=== PATIENT | male | born 1960 | race Caucasian/White ===

== ENCOUNTER 2017-02-08 08:09 | Inpatient (IN) | payer BC ==
[~2017-02-08 08:09] MED LIST: Bisacodyl 5 MG Tab PO PRN; Dexamethasone 4 MG/ML 5 ML MDV ONE; Lactated Ringers 1,000 ML IV SCH; Lactated Ringers 1,000 ML ONE; Lidocaine 1%/Sod Bicarbonate in NS 8.4% 1 ML Syringe IV PRN; Midazolam 1 MG/ML 2 ML SDV ONE; Morphine 2 MG/ML Syringe IVPUSH PRN; Morphine PF 10 MG/10 ML SDV ONE; Ondansetron 4 MG/2 ML SDV IVPUSH PRN; Propofol 200 MG/20 ML SDV ONE; Sodium Chloride 0.9% 10 ML Syringe FLUSH PRN; ceFAZolin 1 GM Vial ONE; fentaNYL 100 MCG/2 ML SDV ONE
[2017-02-08] MEDS ORDERED: Clindamycin Phosphate 900 MG/6 ML AdvVial ONE (08:42)
--- NOTE | 2017-02-08 09:28 | PCM.PREANE ---
Preanesthetic Assessment - Physical Assessment NPO Status Date: 02/07/17 NPO Status Time: 20:00 O2 Sat by Pulse Oximetry: 94 Respiratory Rate: 16 Vital Signs: Last Vital Signs Temp 36.3 C 02/08/17 08:30 Pulse 58 L 02/08/17 08:30 Resp 16 02/08/17 08:30 BP 149/86 H 02/08/17 08:30 Pulse Ox 94 L 02/08/17 08:30 Height: 1.63 m Weight: 104.78 kg - Lab Values: Laboratory Last Values MRSA (PCR) Negative 01/27/17 12:26 - Allergies Allergies/Adverse Reactions: Allergies Allergy/AdvReac Type Severity Reaction Status Date / Time amoxicillin trihydrate Allergy Hives Verified 04/17/15 11:10 [From Augmentin] potassium clavulanate Allergy Hives Verified 04/17/15 11:10 [From Augmentin] PreAnesthesia Questionnaire Cardiovascular History: Reports: Blood clots/VTE/DVT Gastrointestinal History: Reports: GERD Other Gastrointestinal History: heartburn Genitourinary History: Reports: Urinary incontinence Other Genitourinary History: urgency, frequency Neurological History: Reports: Other (see below) Other Neuro History: headache Psychiatric History: Reports: Anxiety, Depression - Past Surgical History GI Surgical History: Reports: Colonoscopy - SUBSTANCE USE Smoking Status *Q: Current Every Day Smoker Tobacco Use Within Last Twelve Months: Snuff/Dip Second Hand Smoke Exposure: No Recreational Drug Use History: No - HOME MEDS Home Medications: Home Meds Aspirin 81 mg PO DAILY 02/05/17 [History] DULoxetine [Cymbalta] 60 mg PO DAILY 02/05/17 [History] Esomeprazole Magnesium [Nexium 24Hr] 20 mg PO DAILY 02/05/17 [History] Furosemide [Furosemide] 20 mg PO DAILY 02/05/17 [History] Gabapentin [Gabapentin] 100 mg PO TID 02/05/17 [History] Multivitamin [Multivitamins] 1 tab PO DAILY 02/05/17 [History] [place]-3 Fatty Acids [Fish Oil] 300 mg PO DAILY 02/05/17 [History] Pramipexole Di-HCl [Mirapex] 1 mg PO BEDTIME 02/05/17 [History] Rivaroxaban [Xarelto] 20 mg PO DAILY 02/05/17 [History] - CURRENT (IN HOUSE) MEDS Current Meds: Current Medications Bisacodyl (Dulcolax) 5 mg PO DAILY PRN PRN Reason: Constipation Morphine Sulfate 8 mg/Epinephrine HCl 0.3 mg/Cefuroxime Sodium 750 mg/Ketorolac Tromethamine 30 mg/Sodium Chloride 27.9 ml 0 mg .XX ONETIME ONE Stop: 02/08/17 10:31 Docusate Sodium (Colace) 100 mg PO BID [facility] Famotidine (Pepcid) 20 mg PO Q12H [facility] Lactated Ringer's (Ringers, Lactated) 1,000 mls @ 125 mls/hr IV ASDIRECTED [facility] Cefazolin Sodium/Dextrose 2 gm (/ Premix) 50 mls @ 100 mls/hr IV Q8H [facility] Stop: 02/09/17 07:59 Ketorolac Tromethamine (Toradol) 15 mg IVPUSH Q6H [facility] Stop: 02/08/17 18:01 Lidocaine/Sodium Bicarbonate (Buffered Lidocaine 1% In Ns 8.4%) 0.25 ml IV ONETIME PRN PRN Reason: Prior to IV Start Magnesium Hydroxide (Milk Of Magnesia) 30 ml PO BID PRN PRN Reason: Constipation Morphine Sulfate (Morphine) 2 mg IVPUSH Q2H PRN PRN Reason: Breakthrough Pain Multivitamins (Thera) 1 each PO WITHBREAKFAST [facility] Naloxone HCl (Narcan) 0.1 mg IVPUSH Q5M PRN PRN Reason: Oversedation Stop: 02/08/17 12:16 Ondansetron HCl (Zofran) 4 mg IVPUSH Q6H PRN PRN Reason: Nausea/Vomiting Oxycodone/Acetaminophen (Percocet 325-5 Mg) 1 - 2 tab PO Q4H PRN PRN Reason: Pain Rivaroxaban (Xarelto) 20 mg PO DAILY [facility] Senna (Senna) 8.6 mg PO BID PRN PRN Reason: Constipation Sodium Chloride (Saline Flush) 10 ml FLUSH ASDIRECTED PRN PRN Reason: Keep Vein Open Discontinued Medications Bupivacaine HCl (Marcaine 0.25%) Confirm Administered Dose 30 ml .ROUTE .STK- MED ONE Stop: 02/08/17 08:44 Cefazolin Sodium (Ancef) Confirm Administered Dose 2 gm .ROUTE .STK-MED ONE Stop: 02/08/17 07:22 Cefazolin Sodium (Ancef) Confirm Administered Dose 2 gm .ROUTE .STK-MED ONE Stop: 02/08/17 08:44 Clindamycin Phosphate (Cleocin) Confirm Administered Dose 900 mg .ROUTE .STK- MED ONE Stop: 02/08/17 08:43 Dexamethasone (Dexamethasone) Confirm Administered Dose 20 mg .ROUTE .STK-MED ONE Stop: 02/08/17 07:22 Fentanyl (Sublimaze) Confirm Administered Dose 100 mcg .ROUTE .STK-MED ONE Stop: 02/08/17 07:22 Lidocaine HCl (Xylocaine-Mpf 1%) Confirm Administered Dose 10 mls @ as directed .ROUTE .STK-MED ONE Stop: 02/08/17 07:22 Lactated Ringer's (Ringers, Lactated) Confirm Administered Dose 1,000 mls @ as directed .ROUTE .STK-MED ONE Stop: 02/08/17 07:22 Iodine (Iodine 2% Mild Tincture) Confirm Administered Dose 30 ml .ROUTE .STK- MED ONE Stop: 02/08/17 08:44 Midazolam HCl (Versed 1 Mg/Ml) Confirm Administered Dose 2 mg .ROUTE .STK-MED ONE Stop: 02/08/17 07:22 Morphine Sulfate (Duramorph Pf) Confirm Administered Dose 10 mg .ROUTE .STK-MED ONE Stop: 02/08/17 07:23 Propofol (Diprivan 20 Ml) Confirm Administered Dose 400 mg .ROUTE .STK-MED ONE Stop: 02/08/17 07:22 Tranexamic Acid (Cyklokapron) Confirm Administered Dose 1,000 mg .ROUTE .STK- MED ONE Stop: 02/08/17 08:43 Preanesthetic Assessment - ANESTHESIA/TRANSFUSION/FAMILY HX Anesthesia/Transfusion History: No Prior Transfusion(s), Prior Anesthesia Type of Anesthesia Reaction: Reports: Unknown Family History of Anesthesia Reaction: No Intubation History: Unknown Type of Transfusion Reactions: Reports: Unknown - REVIEW OF SYSTEMS 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 Respiratory: Reports: no symptoms (RANDY with CPAP) Cardiovascular: Reports: no symptoms (HX of DVT to R) leg) GI: Reports: no symptoms Other: Reports: Easy Bruising, Depression (controlled with medication ) - PHYSICAL ASSESSMENT O2 Sat by Pulse Oximetry: 94 RR: 16 Vital Signs: Last Vital Signs Temp 36.3 C 02/08/17 08:30 Pulse 58 L 02/08/17 08:30 Resp 16 02/08/17 08:30 BP 149/86 H 02/08/17 08:30 Pulse Ox 94 L 02/08/17 08:30 Height: 1.63 m Weight: 104.78 kg NPO Status Date: 02/07/17 NPO Status Time: 20:00 ASA Class: 2 Mental Status: Alert & Oriented x3 Airway Class: Mallampati = 2 Dentition: Reports: Normal Dentition Thyro-Mental Finger Breadths: 3 Mouth Opening Finger Breadths: 3 ROM/Head Extension: Full Respiratory Status: lungs clear to auscultation bilaterally Cardiovascular Status: regular rate & rhythm, normal S1, S2, no murmur, blood pressure WNL - LAB Values: Laboratory Last Values MRSA (PCR) Negative 01/27/17 12:26 plt 223, hgb 16.1 - ALLERGIES Allergies/Adverse Reactions: Allergies Allergy/AdvReac Type Severity Reaction Status Date / Time amoxicillin trihydrate Allergy Hives Verified 04/17/15 11:10 [From Augmentin] potassium clavulanate Allergy Hives Verified 04/17/15 11:10 [From Augmentin] - BLOOD Blood Available: No Product(s) Available: None - ANESTHESIA PLAN Preop Beta Kady: No Anesthesia Type Planned: Spinal (with duramorph) - ACKNOWLEDGEMENTS Pt an Appropriate Candidate for the Planned Anesthesia: Yes Alternatives and Risks of Anesthesia Discussed w Pt/Guardian: Yes Pt/Guardian Understands and Agrees with Anesthesia Plan: Yes
[2017-02-08] MEDS: ceFAZolin 1 GM Vial ONE ×2 (10:56→11:16)
[2017-02-08] MEDS: Bupivacaine 0.25% 30 ML SDV ONE ×2 (10:56→11:37)
[2017-02-08] MEDS: Iodine/Sodium Iodide 2% Tincture 30 ML Bottle ONE ×2 (10:57→11:36)
[2017-02-08] MEDS: Morphine 8 MG, EPINEPHrine 0.3 MG, Cefuroxime 750 MG, Ketorolac 30 MG, Sodium Chloride ... ONE ×15 (10:58→14:11)
[2017-02-08] MEDS ORDERED: Lactated Ringers 1,000 ML ONE (11:12)
[2017-02-08] MEDS ORDERED: Propofol 200 MG/20 ML SDV ONE ×3 (11:23)
[2017-02-08] MEDS ORDERED: diphenhydrAMINE 50 MG/ML SDV IVPUSH PRN (11:48)
[2017-02-08] MEDS ORDERED: Ondansetron 4 MG/2 ML SDV IVPUSH PRN (11:48)
[2017-02-08] MEDS ORDERED: Meperidine PF 50 MG/ML Syringe IVPUSH PRN (11:48)
[2017-02-08] MEDS ORDERED: Naloxone 0.4 MG/ML SDV IVPUSH PRN (12:00)
[2017-02-08] MEDS ORDERED: fentaNYL 100 MCG/2 ML SDV IVPUSH PRN (12:00)
--- NOTE | 2017-02-08 12:28 | PCM.POSTAN ---
POST ANESTHESIA ASSESSMENT - MENTAL STATUS Mental Status: alert, oriented - VITAL SIGNS Pulse Rate: 58 SaO2: 100 Resp Rate: 14 Blood Pressure: 111/72 Temperature: 36.2 C - RESPIRATORY Respiratory Status: respiratory rate WNL, airway patent, O2 saturation stable, supplemental oxygen - CARDIOVASCULAR CV Status: pulse rate WNL - GASTROINTESTINAL GI Status: no symptoms - PAIN Pain Score: 0 - POST OP HYDRATION Hydration Status: adequate & stable
--- NOTE | 2017-02-08 13:56 | CR ---
Left knee: AP and lateral views of the left knee were obtained. Comparison: No previous knee exam. Knee prosthesis is seen. Components are aligned. Soft tissue air is noted. Air noted within the joint. This is compatible with recent surgical procedure. Underlying bony structures are intact. Impression: 1. Satisfactory appearance of recently placed left knee prosthesis. Diagnostic code #2
[2017-02-08] MEDS: Ketorolac 15 MG/ML SDV IVPUSH SCH ×2 (15:34→21:30)
--- NOTE | 2017-02-08 15:35 | PCM.CONS ---
H&P History of Present Illness - General Date of Service: 02/08/17 Admit Problem/Dx: Admission Diagnosis/Problem Admission Diagnosis/Problem Osteoarthritis of knee - History of Present Illness Initial Comments - Free Text/Narative: This is a 56-year-old male with a history of Previous right lower extremity DVT , GERD, depression, restless legs, anxiety, edema, who underwent left total knee arthroplasty with Dr. Brown today, and we are being consulted for medical management. At this time, patient reports that the pain is under control and otherwise denies any other active complaints. - Related Data Allergies/Adverse Reactions: Allergies Allergy/AdvReac Type Severity Reaction Status Date / Time amoxicillin trihydrate Allergy Hives Verified 02/08/17 10:05 [From Augmentin] potassium clavulanate Allergy Hives Verified 02/08/17 10:05 [From Augmentin] Home Medications: Home Meds Aspirin 81 mg PO DAILY 02/05/17 [History] DULoxetine [Cymbalta] 60 mg PO DAILY 02/05/17 [History] Esomeprazole Magnesium [Nexium 24Hr] 20 mg PO DAILY 02/05/17 [History] Furosemide [Furosemide] 20 mg PO DAILY 02/05/17 [History] Gabapentin [Gabapentin] 100 mg PO TID 02/05/17 [History] Multivitamin [Multivitamins] 1 tab PO DAILY 02/05/17 [History] [place]-3 Fatty Acids [Fish Oil] 300 mg PO DAILY 02/05/17 [History] Pramipexole Di-HCl [Mirapex] 1 mg PO BEDTIME 02/05/17 [History] Rivaroxaban [Xarelto] 20 mg PO DAILY 02/05/17 [History] Past Medical History Cardiovascular History: Reports: Blood clots/VTE/DVT Gastrointestinal History: Reports: GERD Other Gastrointestinal History: heartburn Genitourinary History: Reports: Urinary incontinence Other Genitourinary History: urgency, frequency Neurological History: Reports: Other (see below) Other Neuro History: headache Psychiatric History: Reports: Anxiety, Depression - Past Surgical History GI Surgical History: Reports: Colonoscopy Social & Family History - Family History Cardiac: Reports: High cholesterol (Mother), Hypertension (Both parents) Neurological: Reports: CVA (Father), Dementia (Father) - Tobacco Use Smoking Status *Q: Current Every Day Smoker Second Hand Smoke Exposure: No - Caffeine Use Caffeine Use: Reports: None - Alcohol Use Alcohol Use Comment: 3-4 beers per week - Recreational Drug Use Recreational Drug Use: No H&P Review of Systems - Review of Systems: Review Of Systems: See Below General: Denies: fever, chills, night sweats HEENT: Reports: headaches. Denies: vertigo Pulmonary: Reports: Cough. Denies: Shortness of Breath, Sputum Cardiovascular: Denies: chest pain, palpitations, orthopnea Gastrointestinal: Denies: Abdominal pain, Diarrhea, Nausea, Vomiting Genitourinary: Denies: dysuria, frequency, burning Musculoskeletal: Denies: neck pain, back pain Skin: Denies: rash, lesions, lumps Psychiatric: Reports: depression (Chronic). Denies: confusion, anxiety Neurological: Denies: Dizziness, Headache, Weakness Hematologic/Lymphatic: Denies: easy bleeding, easy bruising Exam - Exam Exam: See Below - Vital Signs Vital Signs: Last Vital Signs Temp 36.6 C 02/08/17 13:18 Pulse 52 L 02/08/17 13:18 Resp 18 02/08/17 13:30 BP 116/75 02/08/17 13:18 Pulse Ox 94 L 02/08/17 13:18 Weight: 104.78 kg - Exam Physical Exam Comments:: Vitals: as above General: alert and oriented. NAD Psych: calm and cooperative HEENT: normocephalic, atraumatic. EOMI Cardiac: Normal S1, S2. regular rate. No murmurs rubs, or gallops. No JVD noted. Lungs: CTAB. good air entry bilaterally. Abd: Soft, NT/ND. No HSM noted. Skin: no new visible rashes or purpura noted Neuro: CN grossly intact. Strength intact and adequate bilaterally. - Patient Data Lab Results last 24 hrs: Laboratory Results - last 24 hr 02/08/17 Range/Units 09:36 Urine Color Yellow (Yellow) Urine Appearance Clear (Clear) Urine pH 8.0 (5.0-8.0) Ur Specific [place] 1.020 (1.005-1.030) Urine Protein Negative (Negative) Urine Glucose (UA) Negative (Negative) Urine Ketones Negative (Negative) Urine Occult Blood Negative (Negative) Urine Nitrite Negative (Negative) Urine Bilirubin Negative (Negative) Urine Urobilinogen 1.0 (0.2-1.0) Ur Leukocyte Esterase Negative (Negative) Urine RBC 0-5 (0-5) /hpf Urine WBC 0-5 (0-5) /hpf Ur Epithelial Cells 0-5 (0-5) /hpf Amorphous Sediment Moderate H (NOT SEEN) /hpf Urine Bacteria Few (FEW) /hpf Urine Mucus Not seen (FEW) /hpf Imaging Impressions last 24 hrs: x ray on my evaluation shows postoperative changes. Consult PN Assessment/Plan POD#: 0 Procedures: Procedures DRAIN/INJ JOINT/BURSA W/O US (04/26/15) EXTREMITY STUDY (09/19/15) MRI LUMBAR SPINE W/O DYE (06/05/15) NEEDLE LOCALIZATION BY XRAY (04/26/15) X-RAY EXAM OF SKULL (06/05/15) (1) DVT (deep venous thrombosis) SNOMED Code(s): 554030092 Code(s): I82.409 - ACUTE EMBOLISM AND THOMBOS UNSP DEEP VN UNSP LOWER EXTREMITY Current Visit: Yes Qualifiers: DVT location: lower extremity Affected thrombotic vein of extremity: unspecified vein of extremity Laterality: right Chronicity: chronic Qualified Code(s): I82.501 - Chronic embolism and thrombosis of unspecified deep veins of right lower extremity (2) Depression SNOMED Code(s): 70203493 Code(s): F32.9 - MAJOR DEPRESSIVE DISORDER, SINGLE EPISODE, UNSPECIFIED Current Visit: Yes Qualifiers: Depression Type: unspecified Qualified Code(s): F32.9 - Major depressive disorder, single episode, unspecified (3) Restless leg SNOMED Code(s): 06626868 Code(s): G25.81 - RESTLESS LEGS SYNDROME Current Visit: Yes Problem List Initiated/Reviewed/Updated: Yes My Orders last 24 hours: s/p L TKA, POD#0 - Pain regimen per primary team. xarelto has been ordered by primary team for DVT prophylaxis, - pain currently under control Chronic medical conditions. Would continue home regimen for the following: Anxiety and Depression Restless legs DVT-patient states that his DVT has not resolved after 2 years of anticoagulation. It appears that his PCP added on aspirin. I would recommend continuing both of these as the primary team has done. GERD Thank you for this consult, and please do not hesitate to ask if there are questions. Requesting Provider: Dr. Kevin Date Consult Requested: 02/08/17 Reason for Consult: medical management Patient History Reviewed: Yes Admission H&P Reviewed: Yes
[2017-02-08] MEDS: ceFAZolin 2 GM in Premix Bag 1 BAG IV SCH ×2 (15:37→23:40)
[2017-02-08] MEDS ORDERED: Lactated Ringers 500 ML IV ONE ×2 (16:00→19:48)
[2017-02-08] MEDS ORDERED: Furosemide 20 MG Tab PO STA (19:47)
[2017-02-08] MEDS ORDERED: Sennosides 8.6 MG Tab PO PRN (21:00)
[2017-02-08] MEDS ORDERED: Magnesium Hydroxide 400 MG/5 ML Susp 30 ML Cup PO PRN (21:00)
[2017-02-08] MEDS ORDERED: Pramipexole 0.5 MG Tab PO SCH (21:00)
[2017-02-08] MEDS: Gabapentin 100 MG Cap PO SCH (21:25)
[2017-02-08] MEDS: Famotidine 20 MG Tab PO SCH (21:27)
[2017-02-08] MEDS: Docusate Sodium 100 MG Cap PO SCH (21:27)
[2017-02-08] MEDS ORDERED: Ketorolac 15 MG/ML SDV IVPUSH ONE (21:30)
[2017-02-09] MEDS: Acetaminophen/oxyCODONE 325-5 MG Tab PO PRN ×4 (03:29→15:40)
[2017-02-09] MEDS: ceFAZolin 2 GM in Premix Bag 1 BAG IV SCH (06:55)
[2017-02-09] MEDS ORDERED: Multivitamins,Therapeutic Tab PO SCH (07:00)
--- NOTE | 2017-02-09 08:46 | PCM48HPAN ---
Post Anesthesia Note - EVALUATION WITHIN 48HRS OF ANESTHETIC Vital Signs in Normal Range: Yes Patient Participated in Evaluation: Yes Respiratory Function Stable: Yes Airway Patent: Yes Cardiovascular Function Stable: Yes Hydration Status Stable: Yes Pain Control Satisfactory: Yes (Pt reports pain control satisfactory, and he has less pain when he walks) Nausea and Vomiting Control Satisfactory: Yes Mental Status Recovered: Yes - COMMENTS/OBSERVATIONS Free Text/Narrative:: reports no recall. taking po and up to restroom without problems
[2017-02-09] MEDS: Docusate Sodium 100 MG Cap PO SCH (08:50)
[2017-02-09] MEDS: Famotidine 20 MG Tab PO SCH (08:51)
[2017-02-09] MEDS: Gabapentin 100 MG Cap PO SCH ×2 (08:51→17:28)
[2017-02-09] MEDS ORDERED: Non-Formulary Medication 1 Each (Rivaroxaban [Xarelto] 20 MG) PO SCH (09:00)
[2017-02-09] MEDS ORDERED: Tamsulosin 0.4 MG Cap.ER PO SCH (09:00)
[2017-02-09] MEDS ORDERED: Rivaroxaban 10 MG Tab PO SCH (09:00)
[2017-02-09] MEDS ORDERED: Aspirin 81 MG Tab.Chew PO SCH (09:00)
[2017-02-09] MEDS ORDERED: Furosemide 20 MG Tab PO SCH (09:00)
[2017-02-09] MEDS ORDERED: Pantoprazole 40 MG Tab.CR PO SCH (09:00)
[2017-02-09] MEDS ORDERED: DULoxetine 30 MG Cap PO SCH (09:00)
--- NOTE | 2017-02-09 10:32 | PCM.CONSN ---
- General Info Date of Service: 02/09/17 Admission Dx/Problem (Free Text): Admission Diagnosis/Problem Admission Diagnosis/Problem Osteoarthritis of knee POD #[address] Brown Pain under good control. Working with PT- going "good". No nausea. Had concerns of urinary difficulties s/p rios cath removal this am- started on flomax. Is urinating without difficulty now. VSS. Labs stable; hgb 12.2 this am. Plans dc home with family today. Functional Status: Reports: pain controlled, tolerating diet, ambulating, urinating. Denies: new symptoms - Review of Systems General: Reports: No Symptoms HEENT: Reports: no symptoms Pulmonary: Reports: no symptoms Cardiovascular: Reports: No Symptoms Gastrointestinal: Reports: No symptoms Genitourinary: Reports: no symptoms Musculoskeletal: Reports: leg pain Skin: Reports: no symptoms Neurological: Reports: No Symptoms Psychiatric: Reports: no symptoms - Patient Data Vitals - most recent: Last Vital Signs Temp 98.4 F 02/09/17 08:48 Pulse 62 02/09/17 10:00 Resp 20 02/09/17 10:00 BP 133/71 02/09/17 08:48 Pulse Ox 94 L 02/09/17 10:00 Weight - most recent: 246 lb I&O - last 24 hours: Intake & Output 02/08/17 02/09/17 02/09/17 22:59 06:59 14:59 Intake Total 390 3100 1080 Output Total 1600 Balance 390 1500 1080 Lab Results last 24 hrs: Laboratory Results - last 24 hr 02/09/17 02/09/17 Range/Units 06:14 06:14 WBC 9.48 H (4.23-9.07) K/mm3 RBC 4.09 L (4.63-6.08) M/mm3 Hgb 12.2 L (13.7-17.5) gm/L Hct 37.8 L (40.1-51.0) % MCV 92.4 H (79.0-92.2) fl MCH 29.8 (25.7-32.2) pg MCHC 32.3 (32.2-35.5) g/dl RDW Std Deviation 41.5 (35.1-43.9) fL Plt Count 191 (163-337) K/mm3 MPV 11.1 (9.4-12.3) fl Neut % (Auto) 70.3 H (34.0-67.9) % Lymph % (Auto) 16.0 L (21.8-53.1) % Piatt % (Auto) 11.1 (5.3-12.2) % Eos % (Auto) 2.3 (0.8-7.0) Baso % (Auto) 0.1 (0.1-1.2) % Neut # (Auto) 6.66 H (1.78-5.38) K/mm3 Lymph # (Auto) 1.52 (1.32-3.57) K/mm3 Piatt # (Auto) 1.05 H (0.30-0.82) K/mm3 Eos # (Auto) 0.22 (0.04-0.54) K/mm3 Baso # (Auto) 0.01 (0.01-0.08) K/mm3 Sodium 134 L (136-145) mEq/L Potassium 3.9 (3.5-5.1) mEq/L Chloride 100 (98-107) mEq/L Carbon Dioxide 27 (21-32) mEq/L Anion Gap 10.9 (5-15) BUN 21 H (7-18) mg/dL Creatinine 0.9 (0.7-1.3) mg/dL Est Cr Clr Drug Dosing 75.83 mL/min Estimated GFR (MDRD) > 60 (>60) mL/min BUN/Creatinine Ratio 23.3 H (14-18) Glucose 147 H (74-106) mg/dL Calcium 8.0 L (8.5-10.1) mg/dL Total Bilirubin 0.5 (0.2-1.0) mg/dL AST 16 (15-37) U/L ALT 29 (16-63) U/L Alkaline Phosphatase 64 (46-116) U/L Total Protein 6.0 L (6.4-8.2) g/dl Albumin 3.0 L (3.4-5.0) g/dl Globulin 3.0 gm/dL Albumin/Globulin Ratio 1.0 (1-2) Med Orders - Current: Current Medications Aspirin (Aspirin) 81 mg PO DAILY [facility] Last Admin: 02/09/17 08:51 Dose: 81 mg Bisacodyl (Dulcolax) 5 mg PO DAILY PRN PRN Reason: Constipation Docusate Sodium (Colace) 100 mg PO BID [facility] Last Admin: 02/09/17 08:50 Dose: 100 mg Duloxetine HCl (Cymbalta) 60 mg PO DAILY [facility] Last Admin: 02/09/17 08:50 Dose: 60 mg Famotidine (Pepcid) 20 mg PO Q12H [facility] Last Admin: 02/09/17 08:51 Dose: 20 mg Furosemide (Lasix) 20 mg PO DAILY [facility] Last Admin: 02/09/17 08:50 Dose: 20 mg Gabapentin (Neurontin) 100 mg PO TID [facility] Last Admin: 02/09/17 08:51 Dose: 100 mg Lidocaine/Sodium Bicarbonate (Buffered Lidocaine 1% In Ns 8.4%) 0.25 ml IV ONETIME PRN PRN Reason: Prior to IV Start Magnesium Hydroxide (Milk Of Magnesia) 30 ml PO BID PRN PRN Reason: Constipation Morphine Sulfate (Morphine) 2 mg IVPUSH Q2H PRN PRN Reason: Breakthrough Pain Multivitamins (Thera) 1 each PO WITHBREAKFAST [facility] Last Admin: 02/09/17 06:54 Dose: 1 each Ondansetron HCl (Zofran) 4 mg IVPUSH Q6H PRN PRN Reason: Nausea/Vomiting Oxycodone/Acetaminophen (Percocet 325-5 Mg) 1 - 2 tab PO Q4H PRN PRN Reason: Pain Last Admin: 02/09/17 08:01 Dose: 2 tab Pantoprazole Sodium (Protonix) 40 mg PO DAILY [facility] Last Admin: 02/09/17 08:50 Dose: 40 mg Rivaroxaban (Xarelto) 20 mg PO DAILY [facility] Last Admin: 02/09/17 09:45 Dose: 20 mg Senna (Senna) 8.6 mg PO BID PRN PRN Reason: Constipation Sodium Chloride (Saline Flush) 10 ml FLUSH ASDIRECTED PRN PRN Reason: Keep Vein Open [facility] Last Admin: 02/09/17 09:46 Dose: 0.4 mg Discontinued Medications Bupivacaine HCl (Marcaine 0.25%) Confirm Administered Dose 30 ml .ROUTE .STK- MED ONE Stop: 02/08/17 08:44 Last Admin: 02/08/17 11:37 Dose: 30 ml Cefazolin Sodium (Ancef) Confirm Administered Dose 2 gm .ROUTE .STK-MED ONE Stop: 02/08/17 07:22 Cefazolin Sodium (Ancef) Confirm Administered Dose 2 gm .ROUTE .STK-MED ONE Stop: 02/08/17 08:44 Last Admin: 02/08/17 11:16 Dose: 2 gm Clindamycin Phosphate (Cleocin) Confirm Administered Dose 900 mg .ROUTE .STK- MED ONE Stop: 02/08/17 08:43 Morphine Sulfate 8 mg/Epinephrine HCl 0.3 mg/Cefuroxime Sodium 750 mg/Ketorolac Tromethamine 30 mg/Sodium Chloride 27.9 ml 0 mg .XX ONETIME ONE Stop: 02/08/17 10:31 Last Admin: 02/08/17 14:11 Dose: Not Given Dexamethasone (Dexamethasone) Confirm Administered Dose 20 mg .ROUTE .STK-MED ONE Stop: 02/08/17 07:22 Diphenhydramine HCl (Benadryl) 25 mg IVPUSH Q6H PRN PRN Reason: Pruritis Stop: 02/08/17 15:00 Fentanyl (Sublimaze) Confirm Administered Dose 100 mcg .ROUTE .STK-MED ONE Stop: 02/08/17 07:22 Fentanyl (Sublimaze) 50 mcg IVPUSH Q5M PRN PRN Reason: Pain Stop: 02/08/17 12:16 Furosemide (Lasix) 20 mg PO NOW STA Stop: 02/08/17 19:48 Last Admin: 02/08/17 21:00 Dose: 20 mg Lactated Ringer's (Ringers, Lactated) 1,000 mls @ 125 mls/hr IV ASDIRECTED [facility] Last Admin: 02/08/17 09:40 Dose: 125 mls/hr Cefazolin Sodium/Dextrose 2 gm (/ Premix) 50 mls @ 100 mls/hr IV Q8H [facility] Stop: 02/09/17 07:59 Last Admin: 02/09/17 06:55 Dose: 100 mls/hr Lidocaine HCl (Xylocaine-Mpf 1%) Confirm Administered Dose 10 mls @ as directed .ROUTE .STK-MED ONE Stop: 02/08/17 07:22 Lactated Ringer's (Ringers, Lactated) Confirm Administered Dose 1,000 mls @ as directed .ROUTE .STK-MED ONE Stop: 02/08/17 07:22 Lactated Ringer's (Ringers, Lactated) Confirm Administered Dose 1,000 mls @ as directed .ROUTE .STK-MED ONE Stop: 02/08/17 11:13 Lactated Ringer's (Ringers, Lactated) 500 mls @ 150 mls/hr IV ONETIME ONE Stop: 02/08/17 19:19 Last Admin: 02/08/17 16:00 Dose: 150 mls/hr Lactated Ringer's (Ringers, Lactated) 500 mls @ 150 mls/hr IV .BOLUS ONE Stop: 02/08/17 23:07 Last Admin: 02/08/17 19:45 Dose: 150 mls/hr Iodine (Iodine 2% Mild Tincture) Confirm Administered Dose 30 ml .ROUTE .STK- MED ONE Stop: 02/08/17 08:44 Last Admin: 02/08/17 11:36 Dose: 30 ml Ketorolac Tromethamine (Toradol) 15 mg IVPUSH Q6H [facility] Stop: 02/08/17 18:01 Last Admin: 02/08/17 21:30 Dose: 15 mg Ketorolac Tromethamine (Toradol) 15 mg IVPUSH ONETIME ONE Stop: 02/08/17 21:31 Last Admin: 02/08/17 21:30 Dose: 15 mg Meperidine HCl (Demerol) 12.5 mg IVPUSH ONETIME PRN PRN Reason: Shivering Stop: 02/08/17 15:00 Midazolam HCl (Versed 1 Mg/Ml) Confirm Administered Dose 2 mg .ROUTE .STK-MED ONE Stop: 02/08/17 07:22 Morphine Sulfate (Duramorph Pf) Confirm Administered Dose 10 mg .ROUTE .STK-MED ONE Stop: 02/08/17 07:23 Naloxone HCl (Narcan) 0.1 mg IVPUSH Q5M PRN PRN Reason: Oversedation Stop: 02/08/17 12:16 Non-Formulary Medication (Rivaroxaban [Xarelto]) 20 mg PO DAILY [facility] Ondansetron HCl (Zofran) 4 mg IVPUSH ONETIME PRN PRN Reason: Nausea/Vomiting Stop: 02/08/17 15:00 Pramipexole Dihydrochloride (Mirapex) 1 mg PO BEDTIME [facility] Propofol (Diprivan 20 Ml) Confirm Administered Dose 400 mg .ROUTE .STK-MED ONE Stop: 02/08/17 07:22 Propofol (Diprivan 20 Ml) Confirm Administered Dose 200 mg .ROUTE .STK-MED ONE Stop: 02/08/17 11:24 Propofol (Diprivan 20 Ml) Confirm Administered Dose 200 mg .ROUTE .STK-MED ONE Stop: 02/08/17 11:24 Propofol (Diprivan 20 Ml) Confirm Administered Dose 200 mg .ROUTE .STK-MED ONE Stop: 02/08/17 11:24 Tranexamic Acid (Cyklokapron) Confirm Administered Dose 1,000 mg .ROUTE .STK- MED ONE Stop: 02/08/17 08:43 Last Admin: 02/08/17 11:46 Dose: 1,000 mg - Exam Quality Assessment: DVT prophylaxis (xarelto d/t hx of DVT to rt LE- chronic x 2 years) General: alert, oriented, cooperative, no acute distress HEENT: Pupils equal, Pupils reactive, EOMI, Mucous membr. moist/pink Neck: supple Lungs: Clear to auscultation, Normal respiratory effort Cardiovascular: Regular Rate, Regular Rhythm, No Murmurs Abdomen: bowel sounds present, soft, no tenderness, no distension (Male) Exam: Deferred Extremities: no edema, no calf tenderness, other (teds and scd's bilat; ice to lt knee) Skin: warm, dry Neurological: no new focal deficit Psy/Mental Status: alert, normal affect, normal mood Consult PN Assessment/Plan POD#: 1 Procedures: Procedures DRAIN/INJ JOINT/BURSA W/O US (04/26/15) EXTREMITY STUDY (09/19/15) MRI LUMBAR SPINE W/O DYE (06/05/15) NEEDLE LOCALIZATION BY XRAY (04/26/15) X-RAY EXAM OF SKULL (06/05/15) (1) S/P total knee arthroplasty SNOMED Code(s): 9112847841866, 890040948, 0152987932548 Code(s): Z96.659 - PRESENCE OF UNSPECIFIED ARTIFICIAL KNEE JOINT Priority: High Current Visit: Yes Qualifiers: Laterality: left Qualified Code(s): Z96.652 - Presence of left artificial knee joint (2) Osteoarthritis SNOMED Code(s): 289463998 Code(s): M19.90 - UNSPECIFIED OSTEOARTHRITIS, UNSPECIFIED SITE Priority: High Current Visit: Yes Qualifiers: Osteoarthritis location: knee Osteoarthritis type: primary Laterality: left Qualified Code(s): M17.12 - Unilateral primary osteoarthritis, left knee (3) DVT (deep venous thrombosis) SNOMED Code(s): 339136702 Code(s): I82.409 - ACUTE EMBOLISM AND THOMBOS UNSP DEEP VN UNSP LOWER EXTREMITY Priority: High Current Visit: No Qualifiers: DVT location: lower extremity Affected thrombotic vein of extremity: unspecified vein of extremity Laterality: right Chronicity: chronic Qualified Code(s): I82.501 - Chronic embolism and thrombosis of unspecified deep veins of right lower extremity (4) HTN (hypertension) SNOMED Code(s): 45447856 Code(s): I10 - ESSENTIAL (PRIMARY) HYPERTENSION Priority: Medium Current Visit: No Qualifiers: Hypertension type: essential hypertension Qualified Code(s): I10 - Essential (primary) hypertension (5) Obesity SNOMED Code(s): 336963399 Code(s): E66.9 - OBESITY, UNSPECIFIED Priority: Medium Current Visit: No Qualifiers: Obesity type: unspecified obesity type (6) Depression SNOMED Code(s): 85204065 Code(s): F32.9 - MAJOR DEPRESSIVE DISORDER, SINGLE EPISODE, UNSPECIFIED Priority: Medium Current Visit: No Qualifiers: Depression Type: unspecified Qualified Code(s): F32.9 - Major depressive disorder, single episode, unspecified (7) Restless leg SNOMED Code(s): 25896608 Code(s): G25.81 - RESTLESS LEGS SYNDROME Priority: Medium Current Visit: No Problem List Initiated/Reviewed/Updated: Yes My Orders last 24 hours: My Active Orders 02/09/17 09:00 Tamsulosin [Flomax] 0.4 mg PO BIDPC Plan: S/P Lt TKA with Dr. Brown: POD #1 -Pain management and DVT prophylax per primary team -PT/OT -IS/C&DB postop Other chronic conditions: Stable, continue home medications Hx chronic DVT to rt LE- on xarelto and asa- continue with these HTN- stable, cont home meds ? urinary retention by hx- flomax started today s/p rios removal but urinating now without difficulty- no need for flomax on discharge Depression RLS Other: CM/SW for dc planning assistance Labs stable: hgb 12.2 Patient is Full Code Patient ok for discharge today from hospitalist standpoint.
[2017-02-09 13:15] VITALS: BP 131/67
--- NOTE | 2017-02-09 14:14 | PCM.SURGPN ---
- General Info Date of Service: 02/09/17 POD#: 1 Functional Status: Reports: pain controlled, tolerating diet, ambulating, urinating. Denies: new symptoms - Review of Systems Musculoskeletal: Reports: other (The pt reports the knee is "sore today". He progressed well with P.T.) - Patient Data Vitals - most recent: Last Vital Signs Temp 99.0 F 02/09/17 13:00 Pulse 76 02/09/17 13:13 Resp 20 02/09/17 13:00 BP 131/67 02/09/17 13:13 Pulse Ox 96 02/09/17 13:13 Weight - most recent: 246 lb I&O - last 24 hours: Intake & Output 02/08/17 02/09/17 02/09/17 22:59 06:59 14:59 Intake Total 390 3100 3640 Output Total 1600 1700 Balance 390 1500 1940 Lab Results last 24 hrs: Laboratory Results - last 24 hr 02/09/17 02/09/17 Range/Units 06:14 06:14 WBC 9.48 H (4.23-9.07) K/mm3 RBC 4.09 L (4.63-6.08) M/mm3 Hgb 12.2 L (13.7-17.5) gm/L Hct 37.8 L (40.1-51.0) % MCV 92.4 H (79.0-92.2) fl MCH 29.8 (25.7-32.2) pg MCHC 32.3 (32.2-35.5) g/dl RDW Std Deviation 41.5 (35.1-43.9) fL Plt Count 191 (163-337) K/mm3 MPV 11.1 (9.4-12.3) fl Neut % (Auto) 70.3 H (34.0-67.9) % Lymph % (Auto) 16.0 L (21.8-53.1) % Chambers % (Auto) 11.1 (5.3-12.2) % Eos % (Auto) 2.3 (0.8-7.0) Baso % (Auto) 0.1 (0.1-1.2) % Neut # (Auto) 6.66 H (1.78-5.38) K/mm3 Lymph # (Auto) 1.52 (1.32-3.57) K/mm3 Chambers # (Auto) 1.05 H (0.30-0.82) K/mm3 Eos # (Auto) 0.22 (0.04-0.54) K/mm3 Baso # (Auto) 0.01 (0.01-0.08) K/mm3 Sodium 134 L (136-145) mEq/L Potassium 3.9 (3.5-5.1) mEq/L Chloride 100 (98-107) mEq/L Carbon Dioxide 27 (21-32) mEq/L Anion Gap 10.9 (5-15) BUN 21 H (7-18) mg/dL Creatinine 0.9 (0.7-1.3) mg/dL Est Cr Clr Drug Dosing 75.83 mL/min Estimated GFR (MDRD) > 60 (>60) mL/min BUN/Creatinine Ratio 23.3 H (14-18) Glucose 147 H (74-106) mg/dL Calcium 8.0 L (8.5-10.1) mg/dL Total Bilirubin 0.5 (0.2-1.0) mg/dL AST 16 (15-37) U/L ALT 29 (16-63) U/L Alkaline Phosphatase 64 (46-116) U/L Total Protein 6.0 L (6.4-8.2) g/dl Albumin 3.0 L (3.4-5.0) g/dl Globulin 3.0 gm/dL Albumin/Globulin Ratio 1.0 (1-2) Med Orders - Current: Current Medications Aspirin (Aspirin) 81 mg PO DAILY [facility] Last Admin: 02/09/17 08:51 Dose: 81 mg Bisacodyl (Dulcolax) 5 mg PO DAILY PRN PRN Reason: Constipation Docusate Sodium (Colace) 100 mg PO BID [facility] Last Admin: 02/09/17 08:50 Dose: 100 mg Duloxetine HCl (Cymbalta) 60 mg PO DAILY [facility] Last Admin: 02/09/17 08:50 Dose: 60 mg Famotidine (Pepcid) 20 mg PO Q12H [facility] Last Admin: 02/09/17 08:51 Dose: 20 mg Furosemide (Lasix) 20 mg PO DAILY [facility] Last Admin: 02/09/17 08:50 Dose: 20 mg Gabapentin (Neurontin) 100 mg PO TID [facility] Last Admin: 02/09/17 08:51 Dose: 100 mg Lidocaine/Sodium Bicarbonate (Buffered Lidocaine 1% In Ns 8.4%) 0.25 ml IV ONETIME PRN PRN Reason: Prior to IV Start Magnesium Hydroxide (Milk Of Magnesia) 30 ml PO BID PRN PRN Reason: Constipation Morphine Sulfate (Morphine) 2 mg IVPUSH Q2H PRN PRN Reason: Breakthrough Pain Multivitamins (Thera) 1 each PO WITHBREAKFAST [facility] Last Admin: 02/09/17 06:54 Dose: 1 each Ondansetron HCl (Zofran) 4 mg IVPUSH Q6H PRN PRN Reason: Nausea/Vomiting Oxycodone/Acetaminophen (Percocet 325-5 Mg) 1 - 2 tab PO Q4H PRN PRN Reason: Pain Last Admin: 02/09/17 11:39 Dose: 2 tab Pantoprazole Sodium (Protonix) 40 mg PO DAILY [facility] Last Admin: 02/09/17 08:50 Dose: 40 mg Rivaroxaban (Xarelto) 20 mg PO DAILY [facility] Last Admin: 02/09/17 09:45 Dose: 20 mg Senna (Senna) 8.6 mg PO BID PRN PRN Reason: Constipation Sodium Chloride (Saline Flush) 10 ml FLUSH ASDIRECTED PRN PRN Reason: Keep Vein Open [facility] Last Admin: 02/09/17 09:46 Dose: 0.4 mg Discontinued Medications Bupivacaine HCl (Marcaine 0.25%) Confirm Administered Dose 30 ml .ROUTE .STK- MED ONE Stop: 02/08/17 08:44 Last Admin: 02/08/17 11:37 Dose: 30 ml Cefazolin Sodium (Ancef) Confirm Administered Dose 2 gm .ROUTE .STK-MED ONE Stop: 02/08/17 07:22 Cefazolin Sodium (Ancef) Confirm Administered Dose 2 gm .ROUTE .STK-MED ONE Stop: 02/08/17 08:44 Last Admin: 02/08/17 11:16 Dose: 2 gm Clindamycin Phosphate (Cleocin) Confirm Administered Dose 900 mg .ROUTE .STK- MED ONE Stop: 02/08/17 08:43 Morphine Sulfate 8 mg/Epinephrine HCl 0.3 mg/Cefuroxime Sodium 750 mg/Ketorolac Tromethamine 30 mg/Sodium Chloride 27.9 ml 0 mg .XX ONETIME ONE Stop: 02/08/17 10:31 Last Admin: 02/08/17 14:11 Dose: Not Given Dexamethasone (Dexamethasone) Confirm Administered Dose 20 mg .ROUTE .STK-MED ONE Stop: 02/08/17 07:22 Diphenhydramine HCl (Benadryl) 25 mg IVPUSH Q6H PRN PRN Reason: Pruritis Stop: 02/08/17 15:00 Fentanyl (Sublimaze) Confirm Administered Dose 100 mcg .ROUTE .STK-MED ONE Stop: 02/08/17 07:22 Fentanyl (Sublimaze) 50 mcg IVPUSH Q5M PRN PRN Reason: Pain Stop: 02/08/17 12:16 Furosemide (Lasix) 20 mg PO NOW ST[facility] Stop: 02/08/17 19:48 Last Admin: 02/08/17 21:00 Dose: 20 mg Lactated Ringer's (Ringers, Lactated) 1,000 mls @ 125 mls/hr IV ASDIRECTED [facility] Last Admin: 02/08/17 09:40 Dose: 125 mls/hr Cefazolin Sodium/Dextrose 2 gm (/ Premix) 50 mls @ 100 mls/hr IV Q8H [facility] Stop: 02/09/17 07:59 Last Admin: 02/09/17 06:55 Dose: 100 mls/hr Lidocaine HCl (Xylocaine-Mpf 1%) Confirm Administered Dose 10 mls @ as directed .ROUTE .ST-MED ONE Stop: 02/08/17 07:22 Lactated Ringer's (Ringers, Lactated) Confirm Administered Dose 1,000 mls @ as directed .ROUTE .ST-MED ONE Stop: 02/08/17 07:22 Lactated Ringer's (Ringers, Lactated) Confirm Administered Dose 1,000 mls @ as directed .ROUTE .ST-MED ONE Stop: 02/08/17 11:13 Lactated Ringer's (Ringers, Lactated) 500 mls @ 150 mls/hr IV ONETIME ONE Stop: 02/08/17 19:19 Last Admin: 02/08/17 16:00 Dose: 150 mls/hr Lactated Ringer's (Ringers, Lactated) 500 mls @ 150 mls/hr IV .BOLUS ONE Stop: 02/08/17 23:07 Last Admin: 02/08/17 19:45 Dose: 150 mls/hr Iodine (Iodine 2% Mild Tincture) Confirm Administered Dose 30 ml .ROUTE .STK- MED ONE Stop: 02/08/17 08:44 Last Admin: 02/08/17 11:36 Dose: 30 ml Ketorolac Tromethamine (Toradol) 15 mg IVPUSH Q6H [facility] Stop: 02/08/17 18:01 Last Admin: 02/08/17 21:30 Dose: 15 mg Ketorolac Tromethamine (Toradol) 15 mg IVPUSH ONETIME ONE Stop: 02/08/17 21:31 Last Admin: 02/08/17 21:30 Dose: 15 mg Meperidine HCl (Demerol) 12.5 mg IVPUSH ONETIME PRN PRN Reason: Shivering Stop: 02/08/17 15:00 Midazolam HCl (Versed 1 Mg/Ml) Confirm Administered Dose 2 mg .ROUTE .STK-MED ONE Stop: 02/08/17 07:22 Morphine Sulfate (Duramorph Pf) Confirm Administered Dose 10 mg .ROUTE .STK-MED ONE Stop: 02/08/17 07:23 Naloxone HCl (Narcan) 0.1 mg IVPUSH Q5M PRN PRN Reason: Oversedation Stop: 02/08/17 12:16 Non-Formulary Medication (Rivaroxaban [Xarelto]) 20 mg PO DAILY [facility] Ondansetron HCl (Zofran) 4 mg IVPUSH ONETIME PRN PRN Reason: Nausea/Vomiting Stop: 02/08/17 15:00 Pramipexole Dihydrochloride (Mirapex) 1 mg PO BEDTIME [facility] Propofol (Diprivan 20 Ml) Confirm Administered Dose 400 mg .ROUTE .STK-MED ONE Stop: 02/08/17 07:22 Propofol (Diprivan 20 Ml) Confirm Administered Dose 200 mg .ROUTE .STK-MED ONE Stop: 02/08/17 11:24 Propofol (Diprivan 20 Ml) Confirm Administered Dose 200 mg .ROUTE .STK-MED ONE Stop: 02/08/17 11:24 Propofol (Diprivan 20 Ml) Confirm Administered Dose 200 mg .ROUTE .STK-MED ONE Stop: 02/08/17 11:24 Tranexamic Acid (Cyklokapron) Confirm Administered Dose 1,000 mg .ROUTE .STK- MED ONE Stop: 02/08/17 08:43 Last Admin: 02/08/17 11:46 Dose: 1,000 mg - Exam Wound/Incisions: dressing dry and intact General: alert, cooperative, no acute distress Lungs: Normal respiratory effort Extremities: normal pulses, no calf tenderness, other (NVS intact for BLE. Rhoda's negative. Near independent SLR LLE.) Psy/Mental Status: alert - Problem List Review Problem List Initiated/Reviewed/Updated: Yes - My Orders Last 24 Hours: Active Orders 24 hr Category Date Time Status Ready for Discharge [RC] PER UNIT ROUTINE Care 02/09/17 13:29 Active Aspirin Med 02/09/17 09:00 Active 81 mg PO DAILY DULoxetine [Cymbalta] Med 02/09/17 09:00 Active 60 mg PO DAILY Docusate Sodium [Colace] Med 02/08/17 21:00 Active 100 mg PO BID Famotidine [Pepcid] Med 02/08/17 21:00 Active 20 mg PO Q12H Furosemide [Lasix] Med 02/09/17 09:00 Active 20 mg PO DAILY Gabapentin [Neurontin] Med 02/08/17 21:00 Active 100 mg PO TID Magnesium Hydroxide [Milk of Magnesia] Med 02/08/17 21:00 Active 30 ml PO BID PRN Multivitamins,Therapeutic [Thera] Med 02/09/17 07:00 Active 1 each PO WITHBREAKFAST Pantoprazole [ProTONIX] Med 02/09/17 09:00 Active 40 mg PO DAILY Rivaroxaban [Xarelto] Med 02/09/17 09:00 Active 20 mg PO DAILY Sennosides [Senna] Med 02/08/17 21:00 Active 8.6 mg PO BID PRN Tamsulosin [Flomax] Med 02/09/17 09:00 Active 0.4 mg PO BIDPC Medication Orders Aspirin (Aspirin) 81 mg PO DAILY [facility] Last Admin: 02/09/17 08:51 Dose: 81 mg Bisacodyl (Dulcolax) 5 mg PO DAILY PRN PRN Reason: Constipation Docusate Sodium (Colace) 100 mg PO BID [facility] Last Admin: 02/09/17 08:50 Dose: 100 mg Admin: 02/08/17 21:27 Dose: Not Given Duloxetine HCl (Cymbalta) 60 mg PO DAILY [facility] Last Admin: 02/09/17 08:50 Dose: 60 mg Famotidine (Pepcid) 20 mg PO Q12H [facility] Last Admin: 02/09/17 08:51 Dose: 20 mg Admin: 02/08/17 21:27 Dose: 20 mg Furosemide (Lasix) 20 mg PO DAILY [facility] Last Admin: 02/09/17 08:50 Dose: 20 mg Gabapentin (Neurontin) 100 mg PO TID [facility] Last Admin: 02/09/17 08:51 Dose: 100 mg Admin: 02/08/17 21:25 Dose: 100 mg Lidocaine/Sodium Bicarbonate (Buffered Lidocaine 1% In Ns 8.4%) 0.25 ml IV ONETIME PRN PRN Reason: Prior to IV Start Magnesium Hydroxide (Milk Of Magnesia) 30 ml PO BID PRN PRN Reason: Constipation Morphine Sulfate (Morphine) 2 mg IVPUSH Q2H PRN PRN Reason: Breakthrough Pain Multivitamins (Thera) 1 each PO WITHBREAKFAST [facility] Last Admin: 02/09/17 06:54 Dose: 1 each Ondansetron HCl (Zofran) 4 mg IVPUSH Q6H PRN PRN Reason: Nausea/Vomiting Oxycodone/Acetaminophen (Percocet 325-5 Mg) 1 - 2 tab PO Q4H PRN PRN Reason: Pain Last Admin: 02/09/17 11:39 Dose: 2 tab Admin: 02/09/17 08:01 Dose: 2 tab Admin: 02/09/17 03:29 Dose: 2 tab Pantoprazole Sodium (Protonix) 40 mg PO DAILY [facility] Last Admin: 02/09/17 08:50 Dose: 40 mg Rivaroxaban (Xarelto) 20 mg PO DAILY [facility] Last Admin: 02/09/17 09:45 Dose: 20 mg Senna (Senna) 8.6 mg PO BID PRN PRN Reason: Constipation Sodium Chloride (Saline Flush) 10 ml FLUSH ASDIRECTED PRN PRN Reason: Keep Vein Open [facility] Admin: 02/09/17 09:46 Dose: 0.4 mg - Assessment Assessment (Free Text/Narrative):: POD#1 - left TKA - Plan Plan (Free Text/Narrative):: 1. Hgb 12.2 today. 2. 325mg ASA BID for VTE prophylaxis. TEDs, SCDs, frequent mobility. 3. Percocet and Flexeril for pain management at home. 4. Discharge to home today. The pt met in-patient P.T. and O.T. goals and Hospitalist has cleared for d/c. The pt's case was discussed with Dr. Brown.
--- NOTE | 2017-02-10 08:31 | PCM.DCSUM1 ---
Discharge Summary - Hospital Course Brief History: Kirill is a 56 yo male who underwent left TKA with Dr. Brown on 02-08-2017. The procedure was completed under spinal anesthesia. The pt tolerated the procedure well and was admitted to the towing pilot Unit under Medical-Surgical status. Medical management was provided by the Hospitalist service. The pt's Hospital course was uneventful. The pt's Hgb on POD#1 was 12.2. On POD#1, Xarelto 20mg was restarted for VTE prophylaxis. The pt was previously using Xarelto 20mg daily for treatment of RLE DVT. The pt was also restarted on 81mg ASA. SCDs and TEDs were ordered. A Mepilex dressing was placed at the incision site at the time of surgery and remained clean and dry. The pt participated in P.T. and O.T. and progressed well. The pt was allowed to WBAT and used a FWW for mobility. On POD#1, the pt was deemed appropriate to discharge to home with his . - Discharge Data Discharge Date: 02/09/17 Discharge Disposition: Home, Self-Care 01 Condition: Good - Patient Summary/Data Operative Procedure(s) Performed: right hip intraarticular steroid injection Consults: Consultations 02/08/17 06:31 Consult to Case Management [CONS] Routine Consult to Physician [CONS] Routine OT Evaluation and Treatment [CONS] Routine 02/08/17 06:35 PT Evaluation and Treatment [CONS] Routine - Patient Instructions Diet: Usual Diet as Tolerated Activity: Apply Ice, As Tolerated, Elevate Extremity, Full Weight Bearing Driving: Do Not Drive Showering/Bathing: May Shower Wound/Incision Care: Keep Operative Site/Wound Site Clean and Dry, Do NOT Change Dressing Notify Provider of: Fever, Increased Pain, Swelling and Redness, Drainage, Nausea and/or Vomiting Other/Special Instructions: Please get up and moving around every hour while awake. This helps to prevent blood clots. Please use your walker. Take the blood thinner medication as directed. Schedule for P.T. Complete the exercises that were taught to you in the Hospital. Use the pain medication as needed. The medication may cause drowsiness and constipation. Contact your primary care provider for instructions if you are constipated. You may use a stool softener like docusate sodium or Colace 100mg twice daily and/or a laxative like polyethylene glycol or Miralax daily for constipation. Wear the TABITHA hose during the day and you may remove these at night. Elevate the limb to decrease swelling. Place ice to the knee often. Have a towel between your skin and the blue cooling pad. Schedule an appointment with your primary care provider for 'routine post-op care'. Call the Clinic with questions or concerns - [phone]. - Discharge Plan Prescriptions/Med Rec: Acetaminophen/oxyCODONE [Percocet 325-5 MG] 1 - 2 tab PO Q4H PRN #60 tablet PRN Reason: Pain Home Medications: Home Meds Aspirin 81 mg PO DAILY 02/05/17 [History] DULoxetine [Cymbalta] 60 mg PO DAILY 02/05/17 [History] Esomeprazole Magnesium [Nexium 24Hr] 20 mg PO DAILY 02/05/17 [History] Furosemide 20 mg PO DAILY 02/05/17 [History] Gabapentin 100 mg PO TID 02/05/17 [History] Multivitamin [Multivitamins] 1 tab PO DAILY 02/05/17 [History] [place]-3 Fatty Acids [Fish Oil] 300 mg PO DAILY 02/05/17 [History] Pramipexole Di-HCl [Mirapex] 1 mg PO BEDTIME 02/05/17 [History] Rivaroxaban [Xarelto] 20 mg PO DAILY 02/05/17 [History] Acetaminophen/oxyCODONE [Percocet 325-5 MG] 1 - 2 tab PO Q4H PRN #60 tablet 02/22 [Rx] Patient Handouts: Smoking Cessation, Tips for Success, [id number], Smoking Hazards, Cyclobenzaprine tablets, Acetaminophen; Oxycodone capsules, Rivaroxaban oral tablets, Total Knee Replacement, Care After, [id number], Total Knee Replacement, [id number], Smokeless Tobacco Use, Aspirin, ASA oral tablets, Knee Rehabilitation Guidelines Following Surgery, Tobacco Use Disorder Referrals: Joellen Go PA-C [Physician Traveling Engineer] - Bridget Simms NP [Primary Care Provider] - - Patient Data Vitals - Most Recent: Last Vital Signs Temp 99.0 F 02/09/17 13:00 Pulse 76 02/09/17 13:13 Resp 20 02/09/17 13:00 BP 131/67 02/09/17 13:13 Pulse Ox 96 02/09/17 13:13 Weight - Most Recent: 246 lb I&O - Last 24 hours: Intake & Output 02/09/17 02/10/17 02/10/17 22:59 06:59 14:59 Intake Total 2000 Output Total 800 Balance 1200 Med Orders - Current: Current Medications Discontinued Medications Aspirin (Aspirin) 81 mg PO DAILY [facility] Last Admin: 02/09/17 08:51 Dose: 81 mg Bisacodyl (Dulcolax) 5 mg PO DAILY PRN PRN Reason: Constipation Bupivacaine HCl (Marcaine 0.25%) Confirm Administered Dose 30 ml .ROUTE .STK- MED ONE Stop: 02/08/17 08:44 Last Admin: 02/08/17 11:37 Dose: 30 ml Cefazolin Sodium (Ancef) Confirm Administered Dose 2 gm .ROUTE .STK-MED ONE Stop: 02/08/17 07:22 Cefazolin Sodium (Ancef) Confirm Administered Dose 2 gm .ROUTE .STK-MED ONE Stop: 02/08/17 08:44 Last Admin: 02/08/17 11:16 Dose: 2 gm Clindamycin Phosphate (Cleocin) Confirm Administered Dose 900 mg .ROUTE .STK- MED ONE Stop: 02/08/17 08:43 Morphine Sulfate 8 mg/Epinephrine HCl 0.3 mg/Cefuroxime Sodium 750 mg/Ketorolac Tromethamine 30 mg/Sodium Chloride 27.9 ml 0 mg .XX ONETIME ONE Stop: 02/08/17 10:31 Last Admin: 02/08/17 14:11 Dose: Not Given Dexamethasone (Dexamethasone) Confirm Administered Dose 20 mg .ROUTE .STK-MED ONE Stop: 02/08/17 07:22 Diphenhydramine HCl (Benadryl) 25 mg IVPUSH Q6H PRN PRN Reason: Pruritis Stop: 02/08/17 15:00 Docusate Sodium (Colace) 100 mg PO BID [facility] Last Admin: 02/09/17 08:50 Dose: 100 mg Duloxetine HCl (Cymbalta) 60 mg PO DAILY [facility] Last Admin: 02/09/17 08:50 Dose: 60 mg Famotidine (Pepcid) 20 mg PO Q12H [facility] Last Admin: 02/09/17 08:51 Dose: 20 mg Fentanyl (Sublimaze) Confirm Administered Dose 100 mcg .ROUTE .STK-MED ONE Stop: 02/08/17 07:22 Fentanyl (Sublimaze) 50 mcg IVPUSH Q5M PRN PRN Reason: Pain Stop: 02/08/17 12:16 Furosemide (Lasix) 20 mg PO DAILY [facility] Last Admin: 02/09/17 08:50 Dose: 20 mg Furosemide (Lasix) 20 mg PO NOW STA Stop: 02/08/17 19:48 Last Admin: 02/08/17 21:00 Dose: 20 mg Gabapentin (Neurontin) 100 mg PO TID [facility] Last Admin: 02/09/17 17:28 Dose: Not Given Lactated Ringer's (Ringers, Lactated) 1,000 mls @ 125 mls/hr IV ASDIRECTED [facility] Last Admin: 02/08/17 09:40 Dose: 125 mls/hr Cefazolin Sodium/Dextrose 2 gm (/ Premix) 50 mls @ 100 mls/hr IV Q8H [facility] Stop: 02/09/17 07:59 Last Admin: 02/09/17 06:55 Dose: 100 mls/hr Lidocaine HCl (Xylocaine-Mpf 1%) Confirm Administered Dose 10 mls @ as directed .ROUTE .STK-MED ONE Stop: 02/08/17 07:22 Lactated Ringer's (Ringers, Lactated) Confirm Administered Dose 1,000 mls @ as directed .ROUTE .STK-MED ONE Stop: 02/08/17 07:22 Lactated Ringer's (Ringers, Lactated) Confirm Administered Dose 1,000 mls @ as directed .ROUTE .STK-MED ONE Stop: 02/08/17 11:13 Lactated Ringer's (Ringers, Lactated) 500 mls @ 150 mls/hr IV ONETIME ONE Stop: 02/08/17 19:19 Last Admin: 02/08/17 16:00 Dose: 150 mls/hr Lactated Ringer's (Ringers, Lactated) 500 mls @ 150 mls/hr IV .BOLUS ONE Stop: 02/08/17 23:07 Last Admin: 02/08/17 19:45 Dose: 150 mls/hr Iodine (Iodine 2% Mild Tincture) Confirm Administered Dose 30 ml .ROUTE .STK- MED ONE Stop: 02/08/17 08:44 Last Admin: 02/08/17 11:36 Dose: 30 ml Ketorolac Tromethamine (Toradol) 15 mg IVPUSH Q6H [facility] Stop: 02/08/17 18:01 Last Admin: 02/08/17 21:30 Dose: 15 mg Ketorolac Tromethamine (Toradol) 15 mg IVPUSH ONETIME ONE Stop: 02/08/17 21:31 Last Admin: 02/08/17 21:30 Dose: 15 mg Lidocaine/Sodium Bicarbonate (Buffered Lidocaine 1% In Ns 8.4%) 0.25 ml IV ONETIME PRN PRN Reason: Prior to IV Start Magnesium Hydroxide (Milk Of Magnesia) 30 ml PO BID PRN PRN Reason: Constipation Meperidine HCl (Demerol) 12.5 mg IVPUSH ONETIME PRN PRN Reason: Shivering Stop: 02/08/17 15:00 Midazolam HCl (Versed 1 Mg/Ml) Confirm Administered Dose 2 mg .ROUTE .STK-MED ONE Stop: 02/08/17 07:22 Morphine Sulfate (Morphine) 2 mg IVPUSH Q2H PRN PRN Reason: Breakthrough Pain Morphine Sulfate (Duramorph Pf) Confirm Administered Dose 10 mg .ROUTE .STK-MED ONE Stop: 02/08/17 07:23 Multivitamins (Thera) 1 each PO WITHBREAKFAST [facility] Last Admin: 02/09/17 06:54 Dose: 1 each Naloxone HCl (Narcan) 0.1 mg IVPUSH Q5M PRN PRN Reason: Oversedation Stop: 02/08/17 12:16 Non-Formulary Medication (Rivaroxaban [Xarelto]) 20 mg PO DAILY [facility] Ondansetron HCl (Zofran) 4 mg IVPUSH Q6H PRN PRN Reason: Nausea/Vomiting Ondansetron HCl (Zofran) 4 mg IVPUSH ONETIME PRN PRN Reason: Nausea/Vomiting Stop: 02/08/17 15:00 Oxycodone/Acetaminophen (Percocet 325-5 Mg) 1 - 2 tab PO Q4H PRN PRN Reason: Pain Last Admin: 02/09/17 15:40 Dose: 2 tab Pantoprazole Sodium (Protonix) 40 mg PO DAILY [facility] Last Admin: 02/09/17 08:50 Dose: 40 mg Pramipexole Dihydrochloride (Mirapex) 1 mg PO BEDTIME [facility] Propofol (Diprivan 20 Ml) Confirm Administered Dose 400 mg .ROUTE .STK-MED ONE Stop: 02/08/17 07:22 Propofol (Diprivan 20 Ml) Confirm Administered Dose 200 mg .ROUTE .STK-MED ONE Stop: 02/08/17 11:24 Propofol (Diprivan 20 Ml) Confirm Administered Dose 200 mg .ROUTE .STK-MED ONE Stop: 02/08/17 11:24 Propofol (Diprivan 20 Ml) Confirm Administered Dose 200 mg .ROUTE .STK-MED ONE Stop: 02/08/17 11:24 Rivaroxaban (Xarelto) 20 mg PO DAILY [facility] Last Admin: 02/09/17 09:45 Dose: 20 mg Senna (Senna) 8.6 mg PO BID PRN PRN Reason: Constipation Sodium Chloride (Saline Flush) 10 ml FLUSH ASDIRECTED PRN PRN Reason: Keep Vein Open Tamsulosin HCl (Flomax) 0.4 mg PO BIDPC [facility] Last Admin: 02/09/17 09:46 Dose: 0.4 mg Tranexamic Acid (Cyklokapron) Confirm Administered Dose 1,000 mg .ROUTE .STK- MED ONE Stop: 02/08/17 08:43 Last Admin: 02/08/17 11:46 Dose: 1,000 mg *Q Meaningful Use (DIS) - VTE *Q VTE Criteria *Q: - Stroke *Q Stroke Criteria *Q: - AMI *Q AMI Criteria *Q:
--- NOTE | 2017-02-11 07:28 | PCM.OPNOTE ---
- General Post-Op/Procedure Note Date of Surgery/Procedure: 02/08/17 Operative Procedure(s): left total knee arthroplasty Pre Op Diagnosis: left knee osteoarthrosis Post-Op Diagnosis: Same Anesthesia Technique: Local, MAC, Spinal Primary Surgeon: Fredo Brown Anesthesia Provider: Lenny Novoa Parer: Joellen Go Parer: Georgie Cota EBPérez in mLs: 350 Complications: None Condition: Good
--- NOTE | 2017-02-11 08:18 | OR ---
DATE OF OPERATION: 02/08/2017 SURGEON: Fredo Brown MD OPERATION PERFORMED: Left total knee arthroplasty. PREOPERATIVE DIAGNOSIS: Left knee osteoarthrosis. POSTOPERATIVE DIAGNOSIS: Left knee osteoarthrosis. ANESTHESIA: Local MAC with spinal. ANESTHESIA PROVIDER: Lenny Novoa. EARLY CHILDHOOD SPECIALIST: Joellen Go PA-C and Georgie Cota LPN. ESTIMATED BLOOD LOSS: 350 mL. COMPLICATIONS: None. CONDITION: Stable. IMPLANTS: 1. Ranulfo size 3 PS femur. 2. Ranulfo size 3 [place] tibial baseplate. 3. Ranulfo size 3 9 mm X3 PS polyethylene. 4. 32 x 10 mm asymmetric Ranulfo patella. DESCRIPTION OF PROCEDURE: The patient was identified in the preop holding area. Proper site was marked and identified by the surgeon. The patient was taken back to the operating theater. After adequate anesthesia, the patient's left lower extremity had a nonsterile tourniquet applied and it was then sterilely prepped and draped in the usual sterile fashion. OR timeout was performed. The patient received 2 g IV Ancef. At this time, left lower extremity was exsanguinated. Tourniquet was insufflated to 300 mmHg. Standard medial parapatellar incision was made. Medial parapatellar arthrotomy was created. Deep fibers of the MCL were raised and anterior fat pad was resected. At this time, attention was turned to the patella. The patella measured a 24, was resected to a 14 for a 32 x 10 mm patella. Drill holes were then drilled and found to be in adequate position. The drill was then drilled in the distal femur and the intramedullary distal femoral cutting guide was then placed. 8 mm was resected off the distal femur and was found to be an adequate resection. Sizing guide was placed. It was found to be a size 3 PS femur that was shown on the implant record at the beginning of this dictation. The drill holes were drilled for the epicondylar axis using [place] line and epicondyles as reference. At this time, the 4-in- 1 cutting block was placed. An anterior posterior and anterior and posterior chamfer cuts were then completed. The correct size box cut was then placed and the box cut was completed and found to be an adequate resection. Attention was turned to the tibia. The posterior medial lateral retractors were placed. The extramedullary tibial guide was placed. It was placed in the old footprint of the ACL. It was aligned with the center of the ankle and 0 degrees of slope, 9 mm was then resected off the unaffected lateral side. There was found to be an acceptable reduction. At this time, posterior osteophytes were removed along with medial and lateral meniscus. A trial implant was placed with a correct sized tibia that was mentioned at the beginning of the dictation. A 9 mm trial spacer was placed and a 9 mm X3 polyethylene was placed. The patient's knee was brought through range of motion. The patella was tracking centrally and was stable to varus and valgus stress. Alignment was found to be roughly at 0 degrees. At this time, cement was mixed on the back table. The tibia was stamped and drilled in proper rotation. All cut surfaces were irrigated with pulse lavage irrigation with Ancef and then completely dried. Once this was completed, then the cement was ready. The universal tibial base plate was cemented in place. Next, the size 3 PS femur cemented into place and the 9 mm X3 polyethylene was placed. The patient's knee was brought into full extension. Excess cement was removed. The patella was then cemented in place at this time. Tourniquet was deflated. One liter dilute Betadine solution was irrigated through the knee along with 3 L of pulse lavage irrigation with Ancef. Periarticular injection was then completed. The patient's knee was brought through a range of motion. Once the cement had time to set up and it was found to be stable to varus valgus stress, the patella was tracking centrally with full range of motion. At this time, a #2 barbed suture was used for closure of the medial parapatellar arthrotomy. Topical tranexamic acid was placed. 2-0 Vicryl was used subcutaneously, a running 3-0 Monocryl was used subcuticularly. The patient tolerated the procedure well and was sent to the PACU in stable condition. LINCOLN /[id number]
== END 2017-02-09 17:00 | disposition home or self-care (01) | DRG 302 ==
LOC: JD.MS 08:09 → JD.OB 08:09
PROVIDERS: ADMIT Orthopaedic Surgery; ATTEND Orthopaedic Surgery
PROC: 0SRD0J9 Replacement of Left Knee Joint with Synthetic Substitute, Cemented, Open Approach (ICD-10-PCS; principal; 2017-02-08)
DX: M17.12 Unilateral primary osteoarthritis, left knee (principal); E78.4 Other hyperlipidemia; G25.81 Restless legs syndrome; F41.1 Generalized anxiety disorder; F32.9 Major depressive disorder, single episode, unspecified; R32 Unspecified urinary incontinence; Z79.82 Long term (current) use of aspirin; Z79.01 Long term (current) use of anticoagulants; Z79.899 Other long term (current) drug therapy; Z88.1 Allergy status to other antibiotic agents; K21.9 Gastro-esophageal reflux disease without esophagitis; Z86.718 Personal history of other venous thrombosis and embolism; Z72.0 Tobacco use
CPT/HCPCS: 01402; 36415; 73560-26-LT; 73560-LT; 80053; 81001; 85025; 87641; 97110-GP; 97116-GP; 97161-GP; 97165-GO; 97530-GO; 97535-GO; A9270-GY; C1713; C1776; J0171; J0690; J0697; J1100; J1885; J2250; J2270; J2704; J3010; J3490; J7120

== ENCOUNTER 2017-02-10 04:55 | Emergency (ER) | payer BC ==
[2017-02-10 05:05] VITALS: BP 147/84
--- NOTE | 2017-02-10 05:26 | EDM.PDOC ---
ED HPI Trauma - General Chief Complaint: Lower Extremity Injury/Pain Stated Complaint: SURGERY 02/08/17 FEVER Time Seen by Provider: 02/10/17 05:01 Source: Reports: Patient, Family (), RN notes reviewed History Limitations: Reports: No limitations - History of Present Illness INITIAL COMMENTS - FREE TEXT/NARRATIVE: The patient underwent a left total knee arthroplasty per Dr. Brown 2 days ago, 02/08/2017. He was discharged home yesterday afternoon, 02/09/2017, with prescriptions for Percocet and Flexeril. He takes 2 tablets of Percocet every 4 hours, as needed. His last dose was at 02:30 this morning. The patient's states that around 03:30 this morning, the patient stated that he felt hot, lightheaded, and nausea. The patient's checked the patient's temperature with their home electronic forehead thermometer, which read a temperature of 103. No additional antipyretic was given. Here in the ED, the patient's temperature is found to be 37.1 C = 98.8 F. The patient states that he feels "more now, but denies having any pain, other than his knee discomfort. No recent cough. No recent nausea, vomiting, constipation, or diarrhea. No urinary symptoms. Since the patient's discharge, he has been ambulating to and from the bathroom only. He will be starting physical therapy at [facility] soon. The patient is already on Xarelto for treatment of a RLE DVT. Allergies/ADRs: Allergies amoxicillin trihydrate [From Augmentin] Allergy (Verified 02/10/17 05:05) Hives potassium clavulanate [From Augmentin] Allergy (Verified 02/10/17 05:05) Hives Home Medications: Ambulatory Orders Aspirin 81 mg PO DAILY 02/05/17 [Confirmed 02/05/17] DULoxetine [Cymbalta] 60 mg PO DAILY 02/05/17 [Confirmed 02/05/17] Esomeprazole Magnesium [Nexium 24Hr] 20 mg PO DAILY 02/05/17 [Confirmed 02/05/17 ] Furosemide 20 mg PO DAILY 02/05/17 [Confirmed 02/05/17] Gabapentin 100 mg PO TID 02/05/17 [Confirmed 02/05/17] Multivitamin [Multivitamins] 1 tab PO DAILY 02/05/17 [Confirmed 02/05/17] [place]-3 Fatty Acids [Fish Oil] 300 mg PO DAILY 02/05/17 [Confirmed 02/05/17] Pramipexole Di-HCl [Mirapex] 1 mg PO BEDTIME 02/05/17 [Confirmed 02/05/17] Rivaroxaban [Xarelto] 20 mg PO DAILY 02/05/17 [Confirmed 02/08/17] Acetaminophen/oxyCODONE [Percocet 325-5 MG] 1 - 2 tab PO Q4H PRN #60 tablet 02/22 Past Medical History Cardiovascular History: Reports: Blood clots/VTE/DVT (RLE), High cholesterol Gastrointestinal History: Reports: GERD Musculoskeletal History: Reports: Osteoarthritis Psychiatric History: Reports: Anxiety, Depression Endocrine/Metabolic History: Reports: Obesity/BMI 30+ - Past Surgical History GI Surgical History: Reports: Colonoscopy Musculoskeletal Surgical History: Reports: Knee replacement (left, 02/08/2017, per Dr. 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) Review of Systems - Review of Systems Review Of Systems: See Below Constitutional: Reports: no symptoms Eyes: Reports: no symptoms Ears: Reports: no symptoms Nose: Reports: no symptoms Mouth/Throat: Reports: no symptoms Respiratory: Reports: No Symptoms Cardiovascular: Reports: no symptoms GI/Abdominal: Reports: No symptoms Genitourinary: Reports: no symptoms Musculoskeletal: Reports: no symptoms Skin: Reports: no symptoms Neurological: Reports: No Symptoms Psychiatric: Reports: no symptoms Trauma Exam - Physical Exam Exam: See Below Exam Limited By: No limitations General Appearance: Reports: alert, WD/WN, no apparent distress Head: Reports: atraumatic, normocephalic Eyes: bilateral eye: EOMI, normal inspection Ears: Reports: normal external exam, hearing grossly normal Nose: Reports: normal inspection, no blood Throat/Mouth: Reports: Normal inspection, Normal lips, Normal voice, No airway compromise Neck: Reports: normal alignment, normal inspection Respiratory Exam: Reports: no respiratory distress, lungs clear, normal breath sounds Cardiovascular: Reports: normal peripheral pulses, regular rate, rhythm, no gallop, no JVD, no murmur, no rub GI/Abdominal: Reports: normal bowel sounds, soft, non tender, no organomegaly, no distention, no abnormal bruit, no mass, other (Obese) (Male) Exam: Deferred Rectal (Males) Exam: Deferred Extremities: Reports: other (Swollen and ecchymotic left knee with anterior midline surgical wound, dressed, appropriate for today's post TKA. There is associated warmth, but no suggestion of infection.) Neurologic: Reports: no motor/sensory deficits, alert, oriented x 3 Skin: Reports: Normal color, Warm/dry Course - Vital Signs Last Recorded V/S: Last Vital Signs Temp 37.1 C 02/10/17 05:02 Pulse 79 02/10/17 05:02 Resp 16 02/10/17 05:02 BP 147/84 H 02/10/17 05:02 Pulse Ox 90 L 02/10/17 05:02 - Re-Assessments/Exams Free Text/Narrative Re-Assessment/Exam: 02/10/17 05:20 The patient's electronic forehead thermometer at home read 103, but he is afebrile here at 37.1, despite no treatment. While I would not be surprised if the patient had a mildly elevated temperature as a result of his recent knee replacement, I doubt that his temperature was actually 103 in the absence of any other signs or symptoms of infection. It is most likely that the patient's home thermometer gave an inaccurate reading. Going forward, I am recommending that patients purchase an [id number] mercury thermometer. The patient is to followup with Dr. Brown on 02/16/2017, however, I am recommending to the patient's that she contact his office this morning to let him know of this ED visit. Departure - Departure Time of Disposition: 05:23 Disposition: Home, Self-Care 01 Condition: good Clinical Impression: History of total knee arthroplasty Referrals: Fredo Brown MD [Primary Care Provider] - Forms: ED Department Discharge Additional Instructions: You were seen in the emergency room after a recording of 103 on your home electronic forehead thermometer. In the emergency department, your temperature was found to be normal at 98.8. Because you have no other signs or symptoms of an infection, it is MOST LIKELY that your home thermometer give an inaccurate reading. We recommend that you notify Dr. Brown of your ER visit. He may want to see you before your scheduled appointment on 02/16/2017. If any other problems, please do not hesitate to return to the ER.
== END 2017-02-10 05:43 | disposition home or self-care (01) ==
LOC: JD.ED 04:55
DX: R42 Dizziness and giddiness (principal); R11.0 Nausea; Z96.652 Presence of left artificial knee joint; E78.00 Pure hypercholesterolemia, unspecified; K21.9 Gastro-esophageal reflux disease without esophagitis; M81.0 Age-related osteoporosis without current pathological fracture; F41.8 Other specified anxiety disorders; E66.9 Obesity, unspecified; Z86.718 Personal history of other venous thrombosis and embolism; Z79.82 Long term (current) use of aspirin; Z79.899 Other long term (current) drug therapy; Z88.1 Allergy status to other antibiotic agents; Z68.39 Body mass index [BMI] 39.0-39.9, adult
CPT/HCPCS: 99281; 99283

== ENCOUNTER 2017-03-09 14:44 | Emergency (ER) | payer BC ==
[2017-03-09 15:01] VITALS: BP 171/87
--- NOTE | 2017-03-09 15:33 | EDM.PDOC ---
ED HPI ENT - General Chief Complaint: ENT Problem Stated Complaint: TONGUE BLEEDING 4+HOURS, NAUSEA AND DIZZINESS Time Seen by Provider: 03/09/17 15:10 Source of Information: Reports: Patient History Limitations: Reports: No limitations - History of Present Illness INITIAL COMMENTS - FREE TEXT/NARRATIVE: Patient is a 56 year old male who presents to the E.D. complaining of bleeding from his tongue after biting it accidentally while eating. Patient states he is on xarelto for chronic DVT's. States he has spit up approximately 5 ounces of blood over the past 4 hours. Upon arrival to the ED bleeding has subsided. He does have a history of left total knee February 08, 2017 and was at physical therapy today. He noted dizziness with exercises and position changes. He had no dizziness with ambulation to the ED. He denies any additional complaints. - Related Data Allergies/ADRs: Allergies Allergy/AdvReac Type Severity Reaction Status Date / Time amoxicillin trihydrate Allergy Hives Verified 03/09/17 15:01 [From Augmentin] potassium clavulanate Allergy Hives Verified 03/09/17 15:01 [From Augmentin] Home Meds: Home Meds Aspirin 81 mg PO DAILY 02/05/17 [History] DULoxetine [Cymbalta] 60 mg PO DAILY 02/05/17 [History] Esomeprazole Magnesium [Nexium 24Hr] 20 mg PO DAILY 02/05/17 [History] Furosemide 20 mg PO DAILY 02/05/17 [History] Gabapentin 100 mg PO BID 02/05/17 [History] Multivitamin [Multivitamins] 1 tab PO DAILY 02/05/17 [History] [place]-3 Fatty Acids [Fish Oil] 4,000 mg PO DAILY 02/05/17 [History] Pramipexole Di-HCl [Mirapex] 1 mg PO BEDTIME 02/05/17 [History] Rivaroxaban [Xarelto] 20 mg PO DAILY 02/05/17 [History] Acetaminophen/oxyCODONE [Percocet 325-5 MG] 1 - 2 tab PO Q4H PRN #60 tablet 02/22 [Rx] Past Medical History HEENT History: Reports: Impaired vision Cardiovascular History: Reports: Blood clots/VTE/DVT, High cholesterol, Hypertension Gastrointestinal History: Reports: GERD Other Gastrointestinal History: heartburn Genitourinary History: Reports: Urinary incontinence Other Genitourinary History: urgency, frequency Musculoskeletal History: Reports: Osteoarthritis Neurological History: Reports: Other (see below) Other Neuro History: headache Psychiatric History: Reports: Anxiety, Depression Endocrine/Metabolic History: Reports: Obesity/BMI 30+ - Past Surgical History GI Surgical History: Reports: Colonoscopy Musculoskeletal Surgical History: Reports: Knee replacement Social & Family History - Family History Cardiac: Reports: High cholesterol, Hypertension Neurological: Reports: CVA, Dementia - Tobacco Use Smoking Status *Q: Never Smoker Years of Tobacco use: 40 Packs/Tins Daily: 0.5 Second Hand Smoke Exposure: No - Caffeine Use Caffeine Use: Reports: None - Recreational Drug Use Recreational Drug Use: No - Living Situation & Occupation Living situation: Reports: , with spouse 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 Bleeding has stopped. ) Neck: normal inspection Respiratory/Chest: no respiratory distress, no accessory muscle use Cardiovascular: normal peripheral pulses, regular rate, rhythm Neurological: alert, oriented, CN II-XII intact, normal cognition, no motor/ sensory deficits Psychiatric: normal affect, normal mood Skin: Warm, Dry, Intact, Normal color Course - Vital Signs Last Recorded V/S: Last Vital Signs Temp 98.8 F 03/09/17 14:57 Pulse 86 03/09/17 14:57 Resp 16 03/09/17 14:57 BP 171/87 H 03/09/17 14:57 Pulse Ox 96 03/09/17 14:57 - Orders/Labs/Meds Labs: Laboratory Tests 03/09/17 Range/Units 15:47 WBC 8.27 (4.23-9.07) K/mm3 RBC 4.99 (4.63-6.08) M/mm3 Hgb 14.2 (13.7-17.5) gm/L Hct 44.9 (40.1-51.0) % MCV 90.0 (79.0-92.2) fl MCH 28.5 (25.7-32.2) pg MCHC 31.6 L (32.2-35.5) g/dl RDW Std Deviation 41.8 (35.1-43.9) fL Plt Count 264 (163-337) K/mm3 MPV 10.3 (9.4-12.3) fl Neut % (Auto) 62.3 (34.0-67.9) % Lymph % (Auto) 23.7 (21.8-53.1) % [place] % (Auto) 9.3 (5.3-12.2) % Eos % (Auto) 4.2 (0.8-7.0) Baso % (Auto) 0.4 (0.1-1.2) % Neut # (Auto) 5.15 (1.78-5.38) K/mm3 Lymph # (Auto) 1.96 (1.32-3.57) K/mm3 [place] # (Auto) 0.77 (0.30-0.82) K/mm3 Eos # (Auto) 0.35 (0.04-0.54) K/mm3 Baso # (Auto) 0.03 (0.01-0.08) K/mm3 - Re-Assessments/Exams Free Text/Narrative Re-Assessment/Exam: 03/09/17 15:32 Examination elicited 2 small bite wounds to the left side of the distal tongue. Bleeding has subsided. Patient estimates approximately 5 oz of blood spit into pop bottle since onset. Has felt dizzy with position changes. Request CBC to check Hgb level. 03/09/17 1610 Hgb: 14.2. Reassessment, no bleeding present. Will discharge home. Departure - Departure Time of Disposition: 16:14 Disposition: Home, Self-Care 01 Condition: good Clinical Impression: Hemorrhage of tongue, Tongue biting Referrals: Bridget Simms NP [Primary Care Provider] - Forms: ED Department Discharge Additional Instructions: Tongue bite has stopped bleeding. Hgb is 14.2. Continue to take all medications as prescribed. If bleeding restarts apply direct pressure with gauze. Return to the E.D. as needed if bleeding does not subside.
== END 2017-03-09 16:28 | disposition home or self-care (01) ==
LOC: JD.ED 14:44
DX: K14.8 Other diseases of tongue (principal); I10 Essential (primary) hypertension; E78.00 Pure hypercholesterolemia, unspecified; K21.9 Gastro-esophageal reflux disease without esophagitis; M19.90 Unspecified osteoarthritis, unspecified site; F41.8 Other specified anxiety disorders; E66.9 Obesity, unspecified; Z68.30 Body mass index [BMI] 30.0-30.9, adult; Z96.659 Presence of unspecified artificial knee joint; Z98.890 Other specified postprocedural states; Z79.899 Other long term (current) drug therapy; Z79.82 Long term (current) use of aspirin; Z88.1 Allergy status to other antibiotic agents
CPT/HCPCS: 36415; 85025; 99282; 99283

== ENCOUNTER 2017-08-27 23:36 | Emergency (ER) | payer SELFPAY ==
[2017-08-28 00:06] VITALS: BP 116/98
--- NOTE | 2017-08-28 00:33 | EDM.PDOC ---
ED HPI GENERAL MEDICAL PROBLEM - General Chief Complaint: Bite:Animal, Insect Stated Complaint: STONG BY THREE WASPS Time Seen by Provider: 08/28/17 00:18 Source of Information: Reports: Patient, Family (), RN Notes Reviewed History Limitations: Reports: No Limitations - History of Present Illness INITIAL COMMENTS - FREE TEXT/NARRATIVE: The patient states that he was stung by 3 separate wasps at the base of his left thumb, on his right forearm, and on his anterior abdominal wall around 18: 30 this evening, while blowing leaves. These stings were quite painful, therefore he came to the ED for evaluation. Around 23:20, about the time of arrival to the ED, he developed some shortness of breath, but no wheezing. He denies any lip swelling or oropharyngeal swelling. No hives. The patient states that he has had hives in the past, but he is not sure what it was to, however, he is sure that it was not 2 a bee or wasp sting. The patient states that he has been stung previously by a wasp, with no significant reaction other than local pain. The patient's PCP is Dr. Jewell. Bilateral Arm Pain Score (Numeric/FACES): 10 - Related Data Allergies Allergy/AdvReac Type Severity Reaction Status Date / Time amoxicillin trihydrate Allergy Hives Verified 03/09/17 15:01 [From Augmentin] bee venom protein (honey bee) Allergy Swelling Verified 08/28/17 00:07 potassium clavulanate Allergy Hives Verified 03/09/17 15:01 [From Augmentin] Home Meds: Home Meds Aspirin 81 mg PO DAILY 02/05/17 [History] DULoxetine [Cymbalta] 60 mg PO DAILY 02/05/17 [History] Esomeprazole Magnesium [Nexium 24Hr] 20 mg PO DAILY 02/05/17 [History] Furosemide 20 mg PO DAILY 02/05/17 [History] Gabapentin 100 mg PO BID 02/05/17 [History] Multivitamin [Multivitamins] 1 tab PO DAILY 02/05/17 [History] [place]-3 Fatty Acids [Fish Oil] 4,000 mg PO DAILY 02/05/17 [History] Pramipexole Di-HCl [Mirapex] 1 mg PO BEDTIME 02/05/17 [History] Rivaroxaban [Xarelto] 20 mg PO DAILY 02/05/17 [History] Acetaminophen/oxyCODONE [Percocet 325-5 MG] 1 - 2 tab PO Q4H PRN #60 tablet 02/22 [Rx] Past Medical History HEENT History: Reports: Impaired Vision Cardiovascular History: Reports: Blood Clots/VTE/DVT, High Cholesterol, Hypertension Gastrointestinal History: Reports: GERD Musculoskeletal History: Reports: Osteoarthritis Psychiatric History: Reports: Anxiety, Depression Endocrine/Metabolic History: Reports: Obesity/BMI 30+ - Past Surgical History GI Surgical History: Reports: Colonoscopy Musculoskeletal Surgical History: Reports: Knee Replacement (left) Social & Family History - Family History Family Medical History: Noncontributory Cardiac: Reports: High Cholesterol, Hypertension Neurological: Reports: CVA, Dementia - Tobacco Use Smoking Status *Q: Never Smoker Tobacco Use Within Last Twelve Months: Smokeless Tobacco (chews) Years of Tobacco use: 46 Packs/Tins Daily: 1 Second Hand Smoke Exposure: No - Caffeine Use Caffeine Use: Reports: None - Alcohol Use Alcohol Use History: Yes Alcohol Use Frequency: Rarely - Recreational Drug Use Recreational Drug Use: No - Living Situation & Occupation Living situation: Reports: , with Spouse Occupation: Unemployed ED ROS GENERAL - Review of Systems Review Of Systems: See Below Constitutional: Reports: No Symptoms HEENT: Reports: No Symptoms Respiratory: Reports: No Symptoms Cardiovascular: Reports: No Symptoms Endocrine: Reports: No Symptoms GI/Abdominal: Reports: No Symptoms : Reports: No Symptoms Musculoskeletal: Reports: No Symptoms Skin: Reports: No Symptoms Neurological: Reports: No Symptoms Psychiatric: Reports: No Symptoms Hematologic/Lymphatic: Reports: No Symptoms Immunologic: Reports: No Symptoms ED EXAM, ANIMAL BITE - Physical Exam Exam: See Below Exam Limited By: No Limitations General Appearance: Alert, WD/WN, No Apparent Distress Eye Exam: Bilateral Eye: Normal Inspection Ears: Normal External Exam, Hearing Grossly Normal Nose: Normal Inspection, No Blood Throat/Mouth: Normal Inspection, Normal Lips, Normal Teeth, Normal Gums, Normal Oropharynx (no uvular swelliing), Normal Voice, No Airway Compromise Head: Atraumatic, Normocephalic Neck: Normal Inspection, Supple, Non-Tender, Full Range of Motion Respiratory/Chest: No Respiratory Distress, Lungs Clear, Normal Breath Sounds, No Accessory Muscle Use. No: Wheezing Cardiovascular: Normal Peripheral Pulses, Regular Rate, Rhythm, No Gallop, No JVD, No Murmur, No Rub Peripheral Pulses: 4+: Radial (L), Radial (R) GI/Abdominal: Normal Bowel Sounds, Soft, No Organomegaly, No Distention, No Abnormal Bruit, No Mass, Tender (The anterior abdominal wall, where he was stung by a wasp), Other (Obese) (Male) Exam: Deferred Rectal (Males) Exam: Deferred Back Exam: Normal Inspection, Full Range of Motion, NT Extremities: Normal Inspection, Normal Range of Motion, No Pedal Edema, Normal Capillary Refill, Other (Tenderness to palpation at the base of his left thumb, where he was stung by a wasp. Mild associated swelling, but no erythema. Mild swelling to the right forearm, but no erythema.) Neurological: Alert, Oriented, Normal Cognition, No Motor/Sensory Deficits Psychiatric: Normal Affect Skin Exam: Warm/Dry, DRY, I, Normal Color, NR Lymphatic: No Adenopathy Course - Vital Signs Last Recorded V/S: Last Vital Signs Temp 37.0 C 08/27/17 23:58 Pulse 82 08/27/17 23:58 Resp 24 H 08/27/17 23:58 BP 116/98 H 08/27/17 23:58 Pulse Ox 94 L 08/27/17 23:58 - Re-Assessments/Exams Free Text/Narrative Re-Assessment/Exam: 08/28/17 00:29 The patient is experiencing local pain to where he was stung by the wasps, but has no signs of an allergic reaction, such as urticaria or wheezing. I'm recommending he apply an ice pack to any particularly painful areas, and if he develops local pruritus (which he does not currently have), he can take an over- the-counter antihistamine, such as Benadryl or Claritin. Departure - Departure Time of Disposition: 00:30 Disposition: Home, Self-Care 01 Condition: Good Clinical Impression: Wasp sting - Discharge Information Instructions: Bee, Wasp, or Hornet Sting Referrals: Miguel Bee MD [Primary Care Provider] - Forms: ED Department Discharge Additional Instructions: You were seen in the emergency room after being stung in 3 different places by wasps. While you have local pain from the wasp stings, you are NOT experiencing an allergic reaction. We recommend you apply ice packs to the painful areas. If you develop redness and or itchiness to any of these areas, an antihistamine , such as Benadryl or Claritin, may help. We recommend you notify the office of Dr. Jewell of your ER visit. If any other problems, please do not hesitate to return to the ER.
== END 2017-08-28 00:40 | disposition home or self-care (01) ==
LOC: JD.ED 23:36
DX: T63.461A Toxic effect of venom of wasps, accidental (unintentional), initial encounter (principal); I10 Essential (primary) hypertension; E78.00 Pure hypercholesterolemia, unspecified; K21.9 Gastro-esophageal reflux disease without esophagitis; Z79.82 Long term (current) use of aspirin; Z79.899 Other long term (current) drug therapy; Z88.1 Allergy status to other antibiotic agents; Z91.030 Bee allergy status; Z88.0 Allergy status to penicillin
CPT/HCPCS: 99281; 99282

== ENCOUNTER 2017-08-28 20:53 | Emergency (ER) | payer SELFPAY ==
[2017-08-28 21:09] VITALS: BP 140/77
[2017-08-28] MEDS ORDERED: diphenhydrAMINE 50 MG/ML SDV IM ONE (21:20)
[2017-08-28] MEDS ORDERED: predniSONE 20 MG Tab PO ONE (21:20)
--- NOTE | 2017-08-28 21:35 | EDM.PDOC ---
ED HPI GENERAL MEDICAL PROBLEM - General Chief Complaint: Bite:Animal, Insect Stated Complaint: WASPS BITES Time Seen by Provider: 08/28/17 21:08 Source of Information: Reports: Patient History Limitations: Reports: No Limitations - History of Present Illness INITIAL COMMENTS - FREE TEXT/NARRATIVE: 57-year-old male presents for evaluation treatment of wasp bites. Occurred around 6:30 PM last night. He was seen in the ER around midnight last night. Instructed to use ice and Benadryl. He has a wasp bite to the bilateral forearms and his stomach. He reported last night that he had a scratchy throat. States he no longer has a scratchy throat. He reports "some " difficulty breathing. States that he use the Benadryl at 2 AM and at 7 AM. Has not used any Benadryl since. He did apply some topical Benadryl ointment this afternoon. Used ice around 7 AM last. 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 (see below) Other Treatments BAR ROLLER: benadryl po and topical Right Arm Pain Score (Numeric/FACES): 8 - Related Data Allergies Allergy/AdvReac Type Severity Reaction Status Date / Time amoxicillin trihydrate Allergy Hives Verified 03/09/17 15:01 [From Augmentin] bee venom protein (honey bee) Allergy Swelling Verified 08/28/17 00:07 potassium clavulanate Allergy Hives Verified 03/09/17 15:01 [From Augmentin] Home Meds: Home Meds Aspirin 81 mg PO DAILY 02/05/17 [History] DULoxetine [Cymbalta] 60 mg PO DAILY 02/05/17 [History] Esomeprazole Magnesium [Nexium 24Hr] 20 mg PO DAILY 02/05/17 [History] Furosemide 20 mg PO DAILY 02/05/17 [History] Gabapentin 100 mg PO BID 02/05/17 [History] Multivitamin [Multivitamins] 1 tab PO DAILY 02/05/17 [History] [place]-3 Fatty Acids [Fish Oil] 4,000 mg PO DAILY 02/05/17 [History] Pramipexole Di-HCl [Mirapex] 1 mg PO BEDTIME 02/05/17 [History] Rivaroxaban [Xarelto] 20 mg PO DAILY 02/05/17 [History] Acetaminophen/oxyCODONE [Percocet 325-5 MG] 1 - 2 tab PO Q4H PRN #60 tablet 02/22 [Rx] Prednisone [IMW: predniSONE] 40 mg PO WITHBREAKFAST #8 tab 08/28/17 [Rx] Past Medical History HEENT History: Reports: Impaired Vision Cardiovascular History: Reports: Blood Clots/VTE/DVT, High Cholesterol, Hypertension Gastrointestinal History: Reports: GERD Other Gastrointestinal History: heartburn Genitourinary History: Reports: Urinary Incontinence Other Genitourinary History: urgency, frequency Musculoskeletal History: Reports: Osteoarthritis Neurological History: Reports: Other (See Below) Other Neuro History: headache Psychiatric History: Reports: Anxiety, Depression Endocrine/Metabolic History: Reports: Obesity/BMI 30+ - Past Surgical History GI Surgical History: Reports: Colonoscopy Musculoskeletal Surgical History: Reports: Knee Replacement Social & Family History - Family History Family Medical History: Noncontributory Cardiac: Reports: High Cholesterol, Hypertension Neurological: Reports: CVA, Dementia - Tobacco Use Smoking Status *Q: Current Every Day Smoker Years of Tobacco use: 46 Packs/Tins Daily: 1 Second Hand Smoke Exposure: No - Caffeine Use Caffeine Use: Reports: Soda, Tea - Recreational Drug Use Recreational Drug Use: No - Living Situation & Occupation Living situation: Reports: , with Spouse Occupation: Unemployed ED ROS GENERAL - Review of Systems Review Of Systems: See Below Constitutional: Denies: Fever HEENT: Reports: Other (denies any itching sensation to the throat). Denies: Throat Swelling Respiratory: Reports: Shortness of Breath ("some") GI/Abdominal: Denies: Nausea, Vomiting Skin: Reports: Erythema (right forearm, left hand and abdomen), Wound (wasp bites to the right forearm, left hand and abdomen) ED EXAM, ANIMAL BITE - Physical Exam Exam: See Below Exam Limited By: No Limitations General Appearance: Alert, WD/WN, No Apparent Distress Throat/Mouth: Normal Inspection, Normal Lips, Normal Voice, No Airway Compromise , Other (normal uvula) Respiratory/Chest: No Respiratory Distress, Lungs Clear, Normal Breath Sounds Cardiovascular: Normal Peripheral Pulses, Regular Rate, Rhythm, No Murmur Neurological: Alert, Oriented, Normal Cognition Psychiatric: Normal Affect, Normal Mood Skin Exam: Normal Color, Warm/Dry, Other (approximately 25 cm area of erythema and increased warmth to the abdomen; right forearm has erythema and increased warmth from th right wrist to the right elbow, swelling to the left hand, no erythema present to the left hand) Course - Vital Signs Last Recorded V/S: Last Vital Signs Temp 36.8 C 08/28/17 21:06 Pulse 86 08/28/17 21:06 Resp 20 08/28/17 21:06 BP 140/77 08/28/17 21:06 Pulse Ox 97 08/28/17 21:06 - Orders/Labs/Meds Meds: Medications Discontinued Medications Generic Name Dose Route Start Last Admin Trade Name Marcus PRGina Reason Stop Dose Admin Diphenhydramine HCl 50 mg 08/28/17 21:20 08/28/17 21:33 Benadryl IM 08/28/17 21:21 50 mg ONETIME ONE Administration Prednisone 40 mg 08/28/17 21:20 08/28/17 21:33 Prednisone PO 08/28/17 21:21 40 mg ONETIME ONE Administration - Re-Assessments/Exams Free Text/Narrative Re-Assessment/Exam: 08/28/17 22:12 Symptoms have slightly improved. Will discharge him home with a short course of prednisone. He was instructed to take Benadryl every 6 hours or other antihistamines Claritin and Zyrtec every 12 hours. Departure - Departure Time of Disposition: 22:15 Disposition: Home, Self-Care 01 Condition: Fair Clinical Impression: Wasp sting - Discharge Information Prescriptions: Prednisone [IMW: predniSONE] 40 mg PO WITHBREAKFAST #8 tab Instructions: Bee, Wasp, or Hornet Sting Referrals: Miguel Bee MD [Primary Care Provider] - Forms: ED Department Discharge Additional Instructions: Take the prednisone 2 tabs or 40 mg daily for 5 days. First dose was given in the ER tonight. Start your prescription tomorrow. Ice the areas 4 to 5 times a day for 10-15 minutes. Take Benadryl 50 mg every 6 hours or another antihistamine such as Claritin or Zyrtec as directed. Follow-up with your primary care provider this week if your symptoms persist beyond 4 days. Please return to the ER if your symptoms change or worsen.
== END 2017-08-28 22:37 | disposition home or self-care (01) ==
LOC: JD.ED 20:53
DX: T63.461A Toxic effect of venom of wasps, accidental (unintentional), initial encounter (principal); I10 Essential (primary) hypertension; K21.9 Gastro-esophageal reflux disease without esophagitis; Z79.899 Other long term (current) drug therapy; Z88.1 Allergy status to other antibiotic agents; Z91.030 Bee allergy status; Z88.2 Allergy status to sulfonamides
CPT/HCPCS: 96372; 99282; A9270; J1200; 99283

== ENCOUNTER 2017-09-11 13:12 | Emergency (ER) | payer SELFPAY ==
[2017-09-11] MEDS ORDERED: Aspirin 81 MG Tab.Chew PO ONE (13:27)
[2017-09-11] MEDS ORDERED: Sodium Chloride 0.9% 10 ML Syringe FLUSH PRN ×2 (13:27→14:52)
[2017-09-11] MEDS ORDERED: HYDROmorphone 0.5 MG/0.5 ML Syringe IVPUSH ONE (13:31)
[2017-09-11 13:35] VITALS: BP 164/91
[2017-09-11] MEDS ORDERED: HYDROmorphone 1 MG/ML Syringe IM ONE (13:51)
[2017-09-11] MEDS ORDERED: HYDROmorphone 0.5 MG/0.5 ML Syringe IVPUSH STA (14:03)
[2017-09-11] MEDS ORDERED: Iopamidol 755 MG/ML 50 ML Bottle IVPUSH ONE (14:52)
[2017-09-11] MEDS ORDERED: Iopamidol 755 Mg/ML 100 ML Bottle IVPUSH ONE (14:52)
[2017-09-11] MEDS ORDERED: Sodium Chloride 0.9% 100 ML IV SCH (15:00)
--- NOTE | 2017-09-11 16:04 | EDM.PDOC ---
ED HPI GENERAL MEDICAL PROBLEM - General Chief Complaint: Chest Pain Stated Complaint: CHEST PAIN,LT ARM PAIN AND GROIN PAIN Time Seen by Provider: 09/11/17 13:16 Source of Information: Reports: Patient, Family History Limitations: Reports: No Limitations - History of Present Illness INITIAL COMMENTS - FREE TEXT/NARRATIVE: The patient presents with left groin pain and also chest pain and shortness of breath for 2 weeks. For the past 2 weeks he has been having chest pain and shortness of breath with exertion. The pain and shortness of breath goes away with rest. He has a history of a DVT in the right leg. He was on xerallto but he has not been taking it because of the cost. He has no history of heart problems. He has a history of HTN and hypercholesterolemia. He does not have diabetes. He also has bilateral groin pain and left hip pain. He slipped on some tin that was icy and he did the splits. He denies any other injury. It does hurt to walk. Onset: Gradual Duration: Week(s): (2) Location: Reports: Chest Quality: Reports: Pressure Severity: Moderate Improves with: Reports: Rest Worsens with: Reports: Movement Context: Reports: Activity (With activity) Associated Symptoms: Reports: Chest Pain, Shortness of Breath. Denies: Fever/ Chills, Nausea/Vomiting Left Groin Pain Score (Numeric/FACES): 10 - Related Data Allergies Allergy/AdvReac Type Severity Reaction Status Date / Time amoxicillin trihydrate Allergy Hives Verified 09/11/17 13:18 [From Augmentin] bee venom protein (honey bee) Allergy Swelling Verified 09/11/17 13:18 potassium clavulanate Allergy Hives Verified 09/11/17 13:18 [From Augmentin] Home Meds: Home Meds Aspirin 81 mg PO DAILY 02/05/17 [History] Esomeprazole Magnesium [Nexium 24Hr] 20 mg PO DAILY 02/05/17 [History] Furosemide 20 mg PO DAILY 02/05/17 [History] [place]-3 Fatty Acids [Fish Oil] 4,000 mg PO DAILY 02/05/17 [History] Pramipexole Di-HCl [Mirapex] 1 mg PO BEDTIME 02/05/17 [History] Rivaroxaban [Xarelto] 20 mg PO DAILY 02/05/17 [History] Enoxaparin Sodium [Lovenox] 120 mg SQ BID #7 units 09/11/17 [Rx] Hydrocodone/Acetaminophen [Hydrocodon-Acetaminophen 5-325] 1 - 2 each PO Q6HR PRN #20 tablet 09/11/17 [Rx] Warfarin [Coumadin] 5 mg PO DAILY #30 tablet 09/11/17 [Rx] Past Medical History HEENT History: Reports: Impaired Vision Cardiovascular History: Reports: Blood Clots/VTE/DVT, High Cholesterol, Hypertension Gastrointestinal History: Reports: GERD Other Gastrointestinal History: heartburn Genitourinary History: Reports: Urinary Incontinence Other Genitourinary History: urgency, frequency Musculoskeletal History: Reports: Osteoarthritis Neurological History: Reports: Other (See Below) Other Neuro History: headache Psychiatric History: Reports: Anxiety, Depression Endocrine/Metabolic History: Reports: Obesity/BMI 30+ - Past Surgical History GI Surgical History: Reports: Colonoscopy Musculoskeletal Surgical History: Reports: Knee Replacement Social & Family History - Family History Family Medical History: Noncontributory Cardiac: Reports: High Cholesterol, Hypertension Neurological: Reports: CVA, Dementia - Tobacco Use Smoking Status *Q: Never Smoker Years of Tobacco use: 46 Packs/Tins Daily: 1 Second Hand Smoke Exposure: No - Caffeine Use Caffeine Use: Reports: Soda, Tea - Recreational Drug Use Recreational Drug Use: No - Living Situation & Occupation Living situation: Reports: , with Spouse Occupation: Unemployed ED ROS GENERAL - Review of Systems Review Of Systems: See Below Constitutional: Reports: No Symptoms HEENT: Reports: No Symptoms Respiratory: Reports: Shortness of Breath Cardiovascular: Reports: Chest Pain Endocrine: Reports: No Symptoms GI/Abdominal: Reports: No Symptoms : Reports: No Symptoms Musculoskeletal: Reports: Other (Bilateral groin pain and left hip pain) Skin: Reports: No Symptoms ED EXAM, GENERAL - Physical Exam Exam: See Below Exam Limited By: No Limitations General Appearance: Alert, No Apparent Distress Ears: Normal External Exam Nose: Normal Inspection Head: Atraumatic, Normocephalic Neck: Normal Inspection Respiratory/Chest: No Respiratory Distress, Lungs Clear, Normal Breath Sounds Cardiovascular: Regular Rate, Rhythm, No Edema, No Murmur GI/Abdominal: Soft, Non-Tender, No Organomegaly, No Mass Back Exam: Normal Inspection Extremities: Other (Pain upon palpation to bilateral groin area. Pain upon palpation to left hip and edema to the right leg.) EKG INTERPRETATION EKG Date: 09/11/17 Time: 13:21 Rhythm: NSR Rate (Beats/Min): 73 [place]: Normal P-Wave: Present QRS: Normal ST-T: Normal QT: Normal Comparison: Other: (Repeat EKG shows no changes from prior) Course - Vital Signs Last Recorded V/S: Last Vital Signs Temp 98 F 09/11/17 13:18 Pulse 83 09/11/17 13:18 Resp 17 09/11/17 13:18 BP 164/91 H 09/11/17 13:18 Pulse Ox 95 09/11/17 13:18 - Orders/Labs/Meds Orders: Active Orders 24 hr Category Date Time Status Cardiac Monitoring [RC] . DIRECTED Care 09/11/17 13:27 Active EKG Documentation Completion [RC] ASDIRECTED Care 09/11/17 14:28 Active EKG Documentation Completion [RC] STAT Care 09/11/17 13:29 Active Oxygen Therapy [RC] PRN Care 09/11/17 13:27 Active Peripheral IV Care [RC] . DIRECTED Care 09/11/17 13:29 Active Chest 1V Frontal [CR] Stat Exams 09/11/17 13:29 Taken Enoxaparin [Lovenox] Med 09/12/17 17:00 Once 110 mg SUBCUT DAILY ONE Sodium Chloride 0.9% [Normal Saline] 100 ml Med 09/11/17 15:00 Active IV ASDIRECTED Sodium Chloride 0.9% [Saline Flush] Med 09/11/17 13:27 Active 10 ml FLUSH ASDIRECTED PRN Sodium Chloride 0.9% [Saline Flush] Med 09/11/17 14:52 Active 10 ml FLUSH ONETIME PRN Peripheral IV Insertion Adult [OM.PC] Stat Oth 09/11/17 13:27 Ordered EKG 12 Lead [EK] Stat Ther 09/11/17 14:28 Ordered Medication Orders Enoxaparin Sodium (Lovenox) 110 mg SUBCUT DAILY ONE Stop: 09/12/17 17:01 Sodium Chloride (Normal Saline) 100 mls @ 65 mls/hr IV ASDIRECTED ITALO Last Admin: 09/11/17 15:32 Dose: 65 mls/hr Sodium Chloride (Saline Flush) 10 ml FLUSH ASDIRECTED PRN PRN Reason: Keep Vein Open Last Admin: 09/11/17 14:12 Dose: 10 ml Sodium Chloride (Saline Flush) 10 ml FLUSH ONETIME PRN PRN Reason: IV FLUSH Last Admin: 09/11/17 15:32 Dose: 10 ml Labs: Laboratory Tests 09/11/17 09/11/17 09/11/17 Range/Units 14:04 14:04 14:04 WBC 9.87 H (4.23-9.07) K/mm3 RBC 5.39 (4.63-6.08) M/mm3 Hgb 15.7 (13.7-17.5) gm/L Hct 47.8 (40.1-51.0) % MCV 88.7 (79.0-92.2) fl MCH 29.1 (25.7-32.2) pg MCHC 32.8 (32.2-35.5) g/dl RDW Std Deviation 43.3 (35.1-43.9) fL Plt Count 225 (163-337) K/mm3 MPV 10.5 (9.4-12.3) fl Neut % (Auto) 75.6 H (34.0-67.9) % Lymph % (Auto) 16.0 L (21.8-53.1) % [place] % (Auto) 6.0 (5.3-12.2) % Eos % (Auto) 2.0 (0.8-7.0) Baso % (Auto) 0.3 (0.1-1.2) % Neut # (Auto) 7.46 H (1.78-5.38) K/mm3 Lymph # (Auto) 1.58 (1.32-3.57) K/mm3 [place] # (Auto) 0.59 (0.30-0.82) K/mm3 Eos # (Auto) 0.20 (0.04-0.54) K/mm3 Baso # (Auto) 0.03 (0.01-0.08) K/mm3 PT (8.0-13.0) SECONDS INR D-Dimer, Quantitative 4.28 H (0.19-0.59) mg/L Sodium 139 (136-145) mEq/L Potassium 4.3 (3.5-5.1) mEq/L Chloride 102 (98-107) mEq/L Carbon Dioxide 29 (21-32) mEq/L Anion Gap 12.3 (5-15) BUN 14 (7-18) mg/dL Creatinine 0.9 (0.7-1.3) mg/dL Est Cr Clr Drug Dosing 74.91 mL/min Estimated GFR (MDRD) > 60 (>60) mL/min BUN/Creatinine Ratio 15.6 (14-18) Glucose 120 H (74-106) mg/dL Calcium 8.9 (8.5-10.1) mg/dL Total Bilirubin 0.7 (0.2-1.0) mg/dL AST 21 (15-37) U/L ALT 42 (16-63) U/L Alkaline Phosphatase 79 (46-116) U/L Troponin I < 0.017 (0.00-0.056) ng/mL Total Protein 7.8 (6.4-8.2) g/dl Albumin 4.0 (3.4-5.0) g/dl Globulin 3.8 gm/dL Albumin/Globulin Ratio 1.1 (1-2) 09/11/17 Range/Units 14:04 WBC (4.23-9.07) K/mm3 RBC (4.63-6.08) M/mm3 Hgb (13.7-17.5) gm/L Hct (40.1-51.0) % MCV (79.0-92.2) fl MCH (25.7-32.2) pg MCHC (32.2-35.5) g/dl RDW Std Deviation (35.1-43.9) fL Plt Count (163-337) K/mm3 MPV (9.4-12.3) fl Neut % (Auto) (34.0-67.9) % Lymph % (Auto) (21.8-53.1) % [place] % (Auto) (5.3-12.2) % Eos % (Auto) (0.8-7.0) Baso % (Auto) (0.1-1.2) % Neut # (Auto) (1.78-5.38) K/mm3 Lymph # (Auto) (1.32-3.57) K/mm3 [place] # (Auto) (0.30-0.82) K/mm3 Eos # (Auto) (0.04-0.54) K/mm3 Baso # (Auto) (0.01-0.08) K/mm3 PT 10.1 (8.0-13.0) SECONDS INR 0.93 D-Dimer, Quantitative (0.19-0.59) mg/L Sodium (136-145) mEq/L Potassium (3.5-5.1) mEq/L Chloride (98-107) mEq/L Carbon Dioxide (21-32) mEq/L Anion Gap (5-15) BUN (7-18) mg/dL Creatinine (0.7-1.3) mg/dL Est Cr Clr Drug Dosing mL/min Estimated GFR (MDRD) (>60) mL/min BUN/Creatinine Ratio (14-18) Glucose (74-106) mg/dL Calcium (8.5-10.1) mg/dL Total Bilirubin (0.2-1.0) mg/dL AST (15-37) U/L ALT (16-63) U/L Alkaline Phosphatase (46-116) U/L Troponin I (0.00-0.056) ng/mL Total Protein (6.4-8.2) g/dl Albumin (3.4-5.0) g/dl Globulin gm/dL Albumin/Globulin Ratio (1-2) Meds: Medications Generic Name Dose Route Start Last Admin Trade Name Freq PRN Reason Stop Dose Admin Enoxaparin Sodium 110 mg 09/12/17 17:00 Lovenox SUBCUT 09/12/17 17:01 DAILY ONE Sodium Chloride 100 mls @ 65 mls/hr 09/11/17 15:00 09/11/17 15:32 Normal Saline IV 65 mls/hr ASDIRECTED [place]ALO Administration Sodium Chloride 10 ml 09/11/17 13:27 09/11/17 14:12 Saline Flush FLUSH 10 ml ASDIRECTED PRN Administration Keep Vein Open Sodium Chloride 10 ml 09/11/17 14:52 09/11/17 15:32 Saline Flush FLUSH 10 ml ONETIME PRN Administration IV FLUSH Discontinued Medications Generic Name Dose Route Start Last Admin Trade Name Freq PRN Reason Stop Dose Admin Aspirin 324 mg 09/11/17 13:27 09/11/17 14:09 Aspirin PO 09/11/17 13:28 324 mg ONETIME ONE Administration Enoxaparin Sodium 110 mg 09/11/17 16:46 Lovenox SUBCUT 09/11/17 16:47 ONETIME ONE Enoxaparin Sodium Confirm 09/11/17 16:58 09/11/17 17:01 Lovenox Administered 09/11/17 16:59 Not Given Dose 120 mg .ROUTE .STK-MED ONE Hydromorphone HCl 0.5 mg 09/11/17 13:31 Dilaudid IVPUSH 09/11/17 13:32 ONETIME ONE Hydromorphone HCl 1 mg 09/11/17 13:51 Dilaudid IM 09/11/17 13:52 ONETIME ONE Hydromorphone HCl 0.5 mg 09/11/17 14:03 09/11/17 14:09 Dilaudid IVPUSH 09/11/17 14:04 0.5 mg ONETIME STA Administration Iopamidol 100 ml 09/11/17 14:52 09/11/17 15:32 Isovue-370 (76%) IVPUSH 09/11/17 14:53 100 ml ONETIME ONE Administration Iopamidol 50 ml 09/11/17 14:52 09/11/17 15:32 Isovue-370 (76%) IVPUSH 09/11/17 14:53 50 ml ONETIME ONE Administration Warfarin Sodium 5 mg 09/11/17 16:46 09/11/17 16:59 Coumadin PO 09/11/17 16:47 5 mg ONETIME ONE Administration - Re-Assessments/Exams Free Text/Narrative Re-Assessment/Exam: 09/11/17 16:07 I ordered an IV saline lock, aspirin, dilaudid, EKG, CXR, pelvic x-ray with hip and labs. At one point his BP dropped and he was confused. He also developed some abdominal pain and his chest pain returned. It was gone up to this point. He was getting worked up when my nurses were putting an IV in. This was concerning for dissection so I ordered a CT of his chest, abdomen and pelvis. I also ordered a repeat EKG and there were no changes. 09/11/17 16:[address] of his chest shows several small filling defects are seen within subsegmental branches within the left lower lung as well as within a segmental branch within the right lower lung as well as segmental branch within the right upper lung. Findings are compatible with pulmonary embolism. Multiple small pulmonary nodules within both lungs measuring 5mm or less in size. Recommend follow-up noncontrast CT in 3 months to see if findings are stable. No findings of aortic aneurysm or dissection. The CT of the abdomen and pelvis shows right adrenal nodule measuring 1.5cm. This can be reevaluated with repeat chest CT to include this area on noncontrast study recommended in 3 months. He has bilateral PEs. I have ordered lovenox 110mg subcutaneous and coumadin 5mg by mouth. The patient's father and he does not want to be admitted. He does not have insurance and I called the pharmacy and they have some lovenox that they can provide for him. Departure - Departure Time of Disposition: 17:05 Disposition: Home, Self-Care 01 Condition: Good Clinical Impression: Pulmonary embolism Qualifiers: Pulmonary embolism type: other Chronicity: acute Acute cor pulmonale presence: without acute cor pulmonale Qualified Code(s): I26.99 - Other pulmonary embolism without acute cor pulmonale Hip sprain Qualifiers: Encounter type: initial encounter Laterality: unspecified laterality Qualified Code(s): S73.109A - Unspecified sprain of unspecified hip, initial encounter Prescriptions: Hydrocodone/Acetaminophen [Hydrocodon-Acetaminophen 5-325] 1 - 2 each PO Q6HR PRN #20 tablet PRN Reason: Pain Enoxaparin Sodium [Lovenox] 120 mg SQ BID #7 units Warfarin [Coumadin] 5 mg PO DAILY #30 tablet Referrals: Miguel Bee MD [Primary Care Provider] - 3 Days Forms: ED Department Discharge Additional Instructions: Take coumadin 5mg daily. Take the lovenox 120mg 2 times per day for 5 days. Follow up with Dr Jewell on Wednesday or Wednesday to have your blood checked. Please return if you are worse. - My Orders Last 24 Hours: My Active Orders 09/11/17 13:27 Cardiac Monitoring [RC] . DIRECTED Oxygen Therapy [RC] PRN Sodium Chloride 0.9% [Saline Flush] 10 ml FLUSH ASDIRECTED PRN Peripheral IV Insertion Adult [OM.PC] Stat 09/11/17 13:29 EKG Documentation Completion [RC] STAT Peripheral IV Care [RC] . DIRECTED Chest 1V Frontal [CR] Stat 09/11/17 14:28 EKG Documentation Completion [RC] ASDIRECTED EKG 12 Lead [EK] Stat 09/11/17 14:52 Sodium Chloride 0.9% [Saline Flush] 10 ml FLUSH ONETIME PRN 09/11/17 15:00 Sodium Chloride 0.9% [Normal Saline] 100 ml IV ASDIRECTED 09/12/17 17:00 Enoxaparin [Lovenox] 110 mg SUBCUT DAILY ONE - Assessment/Plan Last 24 Hours: My Active Orders 09/11/17 13:27 Cardiac Monitoring [RC] . DIRECTED Oxygen Therapy [RC] PRN Sodium Chloride 0.9% [Saline Flush] 10 ml FLUSH ASDIRECTED PRN Peripheral IV Insertion Adult [OM.PC] Stat 09/11/17 13:29 EKG Documentation Completion [RC] STAT Peripheral IV Care [RC] . DIRECTED Chest 1V Frontal [CR] Stat 09/11/17 14:28 EKG Documentation Completion [RC] ASDIRECTED EKG 12 Lead [EK] Stat 09/11/17 14:52 Sodium Chloride 0.9% [Saline Flush] 10 ml FLUSH ONETIME PRN 09/11/17 15:00 Sodium Chloride 0.9% [Normal Saline] 100 ml IV ASDIRECTED 09/12/17 17:00 Enoxaparin [Lovenox] 110 mg SUBCUT DAILY ONE
--- NOTE | 2017-09-11 16:06 | CT ---
Addendum: Several small filling defects are seen within subsegmental branches within the left lower lung as well as within a segmental branch within the right lower lung as well as a segmental branch within the right upper lung. Findings are compatible with pulmonary embolism. --- Addendum1 above dictated on [09/11/2017 16:32] by [Gavin Davies Hilton J.] --- --- Addendum1 above signed on [09/11/2017 16:32] by [Gavin Davies Hilton J.] --- --- Original report below dictated on [09/11/2017 16:00] by [Gavin Davies Hilton J.] --- --- Original report below signed on [09/11/2017 16:03] by [Gavin Davies, Edil Kaur] --- CT chest Technique: Multiple axial sections through the chest were obtained. Comparison: Previous chest x-ray performed on the same day. Findings: Mediastinum and hilar regions show no adenopathy or mass. Aorta shows no aneurysm. No dissection is seen. No axillary adenopathy is seen. Multiple small pulmonary nodules are identified within both lungs. These measure 5 mm or less in size. Slight atelectasis is seen within the right lung base. Slight atelectasis is noted within the posterior right upper lung. Lungs otherwise are clear. No pleural effusions are seen. Bone window settings were reviewed which shows degenerative spurring within the spine. Impression: 1. Multiple small pulmonary nodules within both lungs measuring 5 mm or less in size. Recommend follow-up noncontrast chest CT in 3 months to see if findings are stable (study should be obtained through the adrenal glands). 2. No findings of aortic aneurysm or dissection. 3. Other incidental findings as noted above. Diagnostic code #9 CT abdomen and pelvis Technique: Multiple axial sections were obtained from above the dome of the diaphragm inferiorly through the pubic symphysis. Intravenous contrast was utilized. No oral contrast has been given. Comparison: No previous study is available. Liver shows no focal parenchymal abnormality. Spleen appears within normal limits. Right adrenal gland shows a small nodulel measuring about 1.5 cm in size. Left adrenal gland is unremarkable. Pancreas appears normal. Gallbladder shows no calcified gallstones. Aorta shows no aneurysm or dissection. Mild atherosclerotic change is seen. Kidneys show symmetric contrast enhancement without hydronephrosis or mass. No retroperitoneal adenopathy or mesenteric abnormalities are seen. No pelvic mass or adenopathy is identified. Appendix felt to be seen and appears normal. No free fluid or inflammatory change is seen. Bone window settings were reviewed which show scattered degenerative change within the spine. Vacuum phenomena is noted within both sacroiliac joints. Impression: 1. Right adrenal nodule measuring 1.5 cm. This can be reevaluated with repeat chest CT to include this area on noncontrast study recommended in 3 months. 2. Other incidental findings. No aneurysm or dissection is seen. Diagnostic code #9 --- Addendum1 signed ---
[2017-09-11] MEDS ORDERED: Enoxaparin 100 MG/1 ML Syringe SUBCUT ONE (16:46)
[2017-09-11] MEDS ORDERED: Warfarin 5 MG Tab PO ONE (16:46)
[2017-09-11] MEDS ORDERED: Enoxaparin 120 MG/0.8 ML Syringe ONE (16:58)
[2017-09-11] MEDS ORDERED: Enoxaparin 120 MG/0.8 ML Syringe SUBCUT ONE (17:00)
[2017-09-12] MEDS ORDERED: Enoxaparin 120 MG/0.8 ML Syringe SUBCUT ONE (17:00)
--- NOTE | 2017-09-13 07:39 | CR ---
Chest: Portable view of the chest was obtained. Comparison: No prior chest x-ray. Heart size is slightly enlarged. Tortuous thoracic aorta is seen. Lungs are clear. Bony structures are grossly intact. Impression: 1. Slight cardiomegaly. Nothing acute is identified on portable chest x-ray. Diagnostic code #2
== END 2017-09-11 17:31 | disposition home or self-care (01) ==
LOC: JD.ED 13:12
DX: S73.102A Unspecified sprain of left hip, initial encounter (principal); I26.99 Other pulmonary embolism without acute cor pulmonale; Z88.1 Allergy status to other antibiotic agents; Z79.82 Long term (current) use of aspirin; Z79.01 Long term (current) use of anticoagulants; Z79.899 Other long term (current) drug therapy; W01.0XXA Fall on same level from slipping, tripping and stumbling without subsequent striking against object, initial encounter
CPT/HCPCS: 36415; 71010; 71260; 74177; 80053; 84484; 85025; 85379; 85610; 93005; 96372; 96374; 99285; A9270; J1170; J1650; J7030; J7050; Q9967; 93010

== ENCOUNTER 2018-06-19 14:01 | Emergency (ER) | payer OTHER ==
[2018-06-19 14:16] VITALS: BP 135/80
[2018-06-19] MEDS ORDERED: HYDROmorphone 0.5 MG/0.5 ML SYRINGE IVPUSH ONE (14:36)
[2018-06-19] MEDS ORDERED: Sodium Chloride 0.9% 1,000 ML IV ONE (14:36)
[2018-06-19] MEDS ORDERED: Ondansetron 4 MG/2 ML SDV IVPUSH ONE (14:36)
--- NOTE | 2018-06-19 14:40 | EDM.PDOC ---
ED HPI GENERAL MEDICAL PROBLEM - General Chief Complaint: Lower Extremity Injury/Pain Stated Complaint: RT KNEE INJURY Time Seen by Provider: 06/19/18 14:35 Source of Information: Reports: Patient History Limitations: Reports: No Limitations - History of Present Illness INITIAL COMMENTS - FREE TEXT/NARRATIVE: Patient is a 58-year-old male presents ED complaining of right knee pain. Patient states he fell out of bed last night landing on the affected knee. Since then he has been experiencing increasing pain with inability to place any weight on the affected extremity. He states that this is his bad knee and required surgery. Normally uses a cane to ambulate. Since injury he has developed increased swelling to the medial aspect of the thigh, knee, and lower leg. He has increasing pain with palpation of the distal thigh, knee, and lower leg. He is concerned about possible infection due to increased warmth and faint redness noted to the distal third medial aspect of the thigh. Pain with admission to the ED is rated a 10 out of 10. 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 He has only taken Tylenol for the discomfort with minimal relief. He denies CP, SOB, N/V, or NT. 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 SUPERVISOR: pt is on coumadin Right Knee Pain Score (Numeric/FACES): 10 - Related Data Allergies Allergy/AdvReac Type Severity Reaction Status Date / Time amoxicillin trihydrate Allergy Hives Verified 09/11/17 13:18 [From Augmentin] bee venom protein (honey bee) Allergy Swelling Verified 09/11/17 13:18 potassium clavulanate Allergy Hives Verified 09/11/17 13:18 [From Augmentin] Home Meds: Home Meds Aspirin 81 mg PO DAILY 02/05/17 [History] Esomeprazole Magnesium [Nexium 24Hr] 20 mg PO DAILY 02/05/17 [History] Furosemide 20 mg PO DAILY 02/05/17 [History] [place]-3 Fatty Acids [Fish Oil] 4,000 mg PO DAILY 02/05/17 [History] Pramipexole Di-HCl [Mirapex] 1 mg PO BEDTIME 02/05/17 [History] Cephalexin [Keflex] 500 mg PO QID #40 capsule 06/19/18 [Rx] DULoxetine [Cymbalta] 60 mg PO BID 06/19/18 [History] Gabapentin [Neurontin] 100 mg PO TID 06/19/18 [History] Warfarin Sodium [Coumadin] 7.5 mg PO SUTUWETHSA 06/19/18 [History] Warfarin [Coumadin] 5 mg PO MOFR 06/19/18 [History] buPROPion [buPROPion XL] 150 mg PO DAILY 06/19/18 [History] Past Medical History HEENT History: Reports: Impaired Vision Cardiovascular History: Reports: Blood Clots/VTE/DVT, High Cholesterol, Hypertension Gastrointestinal History: Reports: GERD Other Gastrointestinal History: heartburn Genitourinary History: Reports: Urinary Incontinence Other Genitourinary History: urgency, frequency Musculoskeletal History: Reports: Osteoarthritis Neurological History: Reports: Other (See Below) Other Neuro History: headache Psychiatric History: Reports: Anxiety, Depression Endocrine/Metabolic History: Reports: Obesity/BMI 30+ - Past Surgical History GI Surgical History: Reports: Colonoscopy Musculoskeletal Surgical History: Reports: Knee Replacement Social & Family History - Family History Family Medical History: Noncontributory Cardiac: Reports: High Cholesterol, Hypertension Neurological: Reports: CVA, Dementia - Tobacco Use Smoking Status *Q: Current Every Day Smoker Years of Tobacco use: 45 Packs/Tins Daily: 1 - Caffeine Use Caffeine Use: Reports: Soda - Recreational Drug Use Recreational Drug Use: No - Living Situation & Occupation Living situation: Reports: , with Spouse Occupation: Unemployed Review of Systems - Review of Systems Review Of Systems: ROS reveals no pertinent complaints other than HPI. ED EXAM, GENERAL - Physical Exam Exam: See Below Exam Limited By: No Limitations General Appearance: Alert, WD/WN, Moderate Distress Ears: Hearing Grossly Normal Nose: Normal Inspection Throat/Mouth: Normal Voice, No Airway Compromise Neck: Normal Inspection, Supple Respiratory/Chest: No Respiratory Distress, Lungs Clear, Normal Breath Sounds, No Accessory Muscle Use Cardiovascular: Normal Peripheral Pulses, Regular Rate, Rhythm, No Murmur Peripheral Pulses: 2+: Posterior Tibial (R), Dorsalis Pedis (R) Extremities: Limited Range of Motion (Right knee), Increased Warmth (Along the medial aspect of the right knee and distal third of the medial thigh.), Redness (distal third of the medial thigh. ), Other (No pain with palpation of the right hip, ankle, and foot.) Neurological: Alert, Oriented, CN II-XII Intact, Normal Cognition, No Motor/ Sensory Deficits Psychiatric: Normal Affect, Normal Mood Skin Exam: Warm, Dry, Intact Course - Vital Signs Last Recorded V/S: Last Vital Signs Temp 99.3 F 06/19/18 14:14 Pulse 84 06/19/18 14:14 Resp 28 H 06/19/18 14:14 BP 135/80 06/19/18 14:14 Pulse Ox 96 06/19/18 14:14 - Orders/Labs/Meds Orders: Active Orders 24 hr Category Date Time Status Knee 3V Rt [CR] Stat Exams 06/19/18 14:36 Taken VL Duplex Lwr Ext Veins Ltd Rt [US] Stat Exams 06/19/18 14:36 Taken CULTURE BLOOD [BC] Stat Lab 06/19/18 14:37 Ordered CULTURE BLOOD [BC] Stat Lab 06/19/18 14:37 Ordered Blood Culture x2 Reflex Set [OM.PC] Stat Oth 06/19/18 14:35 Ordered Blood Culture x2 Reflex Set [OM.PC] Stat Oth 06/19/18 14:37 Ordered Labs: Laboratory Tests 06/19/18 06/19/18 06/19/18 Range/Units 14:54 14:54 14:54 WBC 8.51 (4.23-9.07) K/mm3 RBC 5.03 (4.63-6.08) M/mm3 Hgb 14.6 (13.7-17.5) gm/L Hct 45.8 (40.1-51.0) % MCV 91.1 (79.0-92.2) fl MCH 29.0 (25.7-32.2) pg MCHC 31.9 L (32.2-35.5) g/dl RDW Std Deviation 42.9 (35.1-43.9) fL Plt Count 228 (163-337) K/mm3 MPV 11.2 (9.4-12.3) fl Neutrophils % (Manual) 70 H (40-60) % Band Neutrophils % 0 (0-10) % Lymphocytes % (Manual) 18 L (20-40) % Atypical Lymphs % 0 % Monocytes % (Manual) 7 (2-10) % Eosinophils % (Manual) 4 (0.8-7.0) % Basophils % (Manual) 1 (0.2-1.2) Platelet Estimate Adequate Plt Morphology Comment Normal RBC Morph Comment Normal ESR (0-15) mm/hr PT 10.9 (9.5-12.1) SECONDS INR 1.00 APTT (24-31) SECONDS D-Dimer, Quantitative 1.18 H (0.19-0.50) mg/L Sodium 142 (136-145) mEq/L Potassium 4.0 (3.5-5.1) mEq/L Chloride 104 (98-107) mEq/L Carbon Dioxide 28 (21-32) mEq/L Anion Gap 14.0 (5-15) BUN 20 H (7-18) mg/dL Creatinine 1.0 (0.7-1.3) mg/dL Est Cr Clr Drug Dosing 66.60 mL/min Estimated GFR (MDRD) > 60 (>60) mL/min BUN/Creatinine Ratio 20.0 H (14-18) Glucose 106 (74-106) mg/dL Lactic Acid (0.4-2.0) mmol/L Calcium 8.7 (8.5-10.1) mg/dL Total Bilirubin 0.6 (0.2-1.0) mg/dL AST 20 (15-37) U/L ALT 33 (16-63) U/L Alkaline Phosphatase 75 (46-116) U/L C-Reactive Protein 3.5 H* (<1.0) mg/dL Total Protein 7.6 (6.4-8.2) g/dl Albumin 3.6 (3.4-5.0) g/dl Globulin 4.0 gm/dL Albumin/Globulin Ratio 0.9 L (1-2) 06/19/18 06/19/18 06/19/18 Range/Units 14:54 14:54 14:54 WBC (4.23-9.07) K/mm3 RBC (4.63-6.08) M/mm3 Hgb (13.7-17.5) gm/L Hct (40.1-51.0) % MCV (79.0-92.2) fl MCH (25.7-32.2) pg MCHC (32.2-35.5) g/dl RDW Std Deviation (35.1-43.9) fL Plt Count (163-337) K/mm3 MPV (9.4-12.3) fl Neutrophils % (Manual) (40-60) % Band Neutrophils % (0-10) % Lymphocytes % (Manual) (20-40) % Atypical Lymphs % % Monocytes % (Manual) (2-10) % Eosinophils % (Manual) (0.8-7.0) % Basophils % (Manual) (0.2-1.2) Platelet Estimate Plt Morphology Comment RBC Morph Comment ESR 32 H (0-15) mm/hr PT (9.5-12.1) SECONDS INR APTT 26 (24-31) SECONDS D-Dimer, Quantitative (0.19-0.50) mg/L Sodium (136-145) mEq/L Potassium (3.5-5.1) mEq/L Chloride (98-107) mEq/L Carbon Dioxide (21-32) mEq/L Anion Gap (5-15) BUN (7-18) mg/dL Creatinine (0.7-1.3) mg/dL Est Cr Clr Drug Dosing mL/min Estimated GFR (MDRD) (>60) mL/min BUN/Creatinine Ratio (14-18) Glucose (74-106) mg/dL Lactic Acid 1.5 (0.4-2.0) mmol/L Calcium (8.5-10.1) mg/dL Total Bilirubin (0.2-1.0) mg/dL AST (15-37) U/L ALT (16-63) U/L Alkaline Phosphatase (46-116) U/L C-Reactive Protein (<1.0) mg/dL Total Protein (6.4-8.2) g/dl Albumin (3.4-5.0) g/dl Globulin gm/dL Albumin/Globulin Ratio (1-2) Meds: Medications Discontinued Medications Generic Name Dose Route Start Last Admin Trade Name Freq PRN Reason Stop Dose Admin Hydromorphone HCl 0.5 mg 06/19/18 14:36 06/19/18 14:59 Dilaudid IVPUSH 06/19/18 14:37 0.5 mg ONETIME ONE Administration Sodium Chloride 1,000 mls @ 150 mls/hr 06/19/18 14:36 06/19/18 14:58 Normal Saline IV 06/19/18 21:15 150 mls/hr ONETIME ONE Administration Cefazolin Sodium/Dextrose 1 gm 50 mls @ 100 mls/hr 06/19/18 17:01 06/19/18 17 :18 / Premix IV 06/19/18 17:30 100 mls/hr ONETIME ONE Administration Ondansetron HCl 4 mg 06/19/18 14:36 06/19/18 14:58 Zofran IVPUSH 06/19/18 14:37 4 mg ONETIME ONE Administration Warfarin Sodium 5 mg 06/19/18 17:01 06/19/18 17:18 Coumadin PO 06/19/18 17:02 5 mg ONETIME ONE Administration - Re-Assessments/Exams Free Text/Narrative Re-Assessment/Exam: IV established with NS, Zofran 4 mg IVP, and Dilaudid 0.5 mg IVP. Initial labs and studies include: CBC, chem 14, CRP, blood cultures 2, d-dimer , ESR, lactic acid, coag studies, x-ray of the right knee, and vl duplex of the right lower extremity. CBC and CMP were essentially normal. ESR 32. INR 1.00. DD 1.18. Preliminary results of ultrasound were negative for DVT. Awaiting for final impression. X-ray of the right knee did not reveal any acute finding. Patient states he has been taking his warfarin.Had INR check last week that came back normal. He will be seeing his PCP this week. I ordered 5mg Warfarin PO. Suspect patient may have sprained his knee and may have a underlying cellulitis with increased redness to the medial distal 1/3 of the thigh with swelling. He does not have a septic joint. He is able to bend his knee and with axial loading has no pain. I ordered ancef 1 gram IV. He has crutches and knee immobilizer at home. Once report is back and IV antibiotics completed he will be sent home. Ultrasound Right Lower Extremity Impression: NO evidence of DVT. Mildly enlarged lymph node in the popliteal fossa. Reassessment, vitals are stable. Patients pain is well controlled. He refuses crutches or knee immobilizer. He has these at home. The patient remained hemodynamically stable while under my care in the E.D. I discussed the concerning symptoms for which to return to the E.D. with the patient/family. The patient/family verbalized understanding. All questions were answered. 1830 I did speak with the patient again. He does have a walker at home and thus I have instructed him to use the walker instead of crutches. Instructions were already printed. This will not be changed. Departure - Departure Time of Disposition: 17:21 Disposition: Home, Self-Care 01 Condition: Good Clinical Impression: Cellulitis and abscess of right leg, Sprain of knee, Subtherapeutic international normalized ratio (INR) Right knee sprain Qualifiers: Encounter type: initial encounter Involved ligament of knee: unspecified ligament Qualified Code(s): S83.91XA - Sprain of unspecified site of right knee , initial encounter - Discharge Information *PRESCRIPTION DRUG MONITORING PROGRAM REVIEWED*: Not Applicable *COPY OF PRESCRIPTION DRUG MONITORING REPORT IN PATIENT ESTHER: Not Applicable Prescriptions: Cephalexin [Keflex] 500 mg PO QID #40 capsule Instructions: Crutch Use, Adult, [id number], Vitamin K Foods and Warfarin, Cellulitis, Adult, What You Need to Know About Warfarin, Knee Sprain, Adult, [id number], How to Use a Knee Brace Referrals: Miguel Bee MD [Primary Care Provider] - Forms: ED Department Discharge Additional Instructions: Suspect you contused/sprained the right knee. In addition I believe you have cellulitis as well. You are to be nonweightbearing toe-touch only for balance. Wear the knee immobilizer when up ambulating only taking off to bath and elevate. Take the full course of keflex as prescribed. Followup with Orthopedic Surgeon of your choice in 7 to 10 days for reevaluation. In addition INR was low today with reading of 100. With history of DVT it should be 2.0 to 3.0. Please followup with PCP for modification of dosage. If you should have any new or worsening symptoms please return to the E.D. - My Orders Last 24 Hours: My Active Orders 06/19/18 14:35 Blood Culture x2 Reflex Set [OM.PC] Stat 06/19/18 14:36 Knee 3V Rt [CR] Stat VL Duplex Lwr Ext Veins Ltd Rt [US] Stat 06/19/18 14:37 CULTURE BLOOD [BC] Stat CULTURE BLOOD [BC] Stat Blood Culture x2 Reflex Set [OM.PC] Stat - Assessment/Plan Last 24 Hours: My Active Orders 06/19/18 14:35 Blood Culture x2 Reflex Set [OM.PC] Stat 06/19/18 14:36 Knee 3V Rt [CR] Stat VL Duplex Lwr Ext Veins Ltd Rt [US] Stat 06/19/18 14:37 CULTURE BLOOD [BC] Stat CULTURE BLOOD [BC] Stat Blood Culture x2 Reflex Set [OM.PC] Stat
[2018-06-19] MEDS ORDERED: ceFAZolin 1 GM in Premix Bag 1 BAG IV ONE (17:01)
[2018-06-19] MEDS ORDERED: Warfarin 5 MG Tab PO ONE (17:01)
--- NOTE | 2018-06-20 10:49 | US ---
Right lower extremity deep venous ultrasound: Duplex and color flow imaging was obtained of the right common femoral, proximal greater saphenous, superficial femoral, popliteal, posterior tibial and peroneal veins. Left common femoral vein was also evaluated. Findings: Slightly less than optimal evaluation of the distal superficial femoral vein but no findings of venous thrombosis seen. Other veins show normal phasic flow, augmentation and compression. No popliteal cyst is seen. Lymph node which appears within normal limits in appearance is seen within the popliteal fossa measuring 1.8 cm Impression: 1. No findings of deep venous thrombosis. 2. Small lymph node within the popliteal fossa most likely incidental and due to old inflammatory change. Diagnostic code #2 I agree with preliminary report issued by [facility] ([facility] report finalized on 06/19/18, 6:27 PM Central Time)
--- NOTE | 2018-06-20 10:50 | CR ---
Right knee: AP, lateral and sunrise patellar views of the right knee were obtained. Comparison: No prior right knee exam. Medial and lateral joint compartments are maintained in height. No joint effusion is seen. No fracture or other bony abnormality is seen. Minimal spurring noted off the patellofemoral joint. Impression: 1. Minimal spurring off the patellofemoral joint. 2. Right knee exam is otherwise unremarkable. Diagnostic code #2
== END 2018-06-19 18:25 | disposition home or self-care (01) ==
LOC: JD.ED 14:01
DX: S83.91XA Sprain of unspecified site of right knee, initial encounter (principal); L02.415 Cutaneous abscess of right lower limb; L03.115 Cellulitis of right lower limb; I10 Essential (primary) hypertension; E78.00 Pure hypercholesterolemia, unspecified; K21.9 Gastro-esophageal reflux disease without esophagitis; Z88.1 Allergy status to other antibiotic agents; Z91.030 Bee allergy status; Z79.82 Long term (current) use of aspirin; Z79.899 Other long term (current) drug therapy; F17.210 Nicotine dependence, cigarettes, uncomplicated; W06.XXXA Fall from bed, initial encounter
CPT/HCPCS: 36415; 73562; 80053; 83605; 85007; 85027; 85379; 85610; 85652; 85730; 86140; 87040; 93971; 96361; 96365; 96375; 99284; A9270; J0690; J1170; J2405; J7040

== ENCOUNTER 2019-01-29 00:47 | Emergency (ER) | payer SELFPAY ==
[2019-01-29] MEDS ORDERED: Ondansetron 4 MG/2 ML SDV IVPUSH ONE (01:06)
[2019-01-29] MEDS ORDERED: HYDROmorphone 1 MG/ML Syringe IVPUSH ONE (01:06)
[2019-01-29] MEDS ORDERED: Albuterol/Ipratropium 3.0-0.5 MG/3 ML Neb Soln NEB ONE (01:08)
--- NOTE | 2019-01-29 01:17 | EDM.PDOC ---
ED HPI GENERAL MEDICAL PROBLEM - General Chief Complaint: Chest Pain Stated Complaint: CHEST PAIN Time Seen by Provider: 01/29/19 00:55 Source of Information: Reports: Patient, Family History Limitations: Reports: No Limitations - History of Present Illness INITIAL COMMENTS - FREE TEXT/NARRATIVE: This is a 58-year-old male. He comes in early this morning because he is having chest pain for the last several days but no abdominal pain. He's been having increasing wheezing over the last day. He complains of severe left knee pain and mild right knee pain where his had his knees replaced. He says he is on no pain medication and we tried to lay him down in the bed to get an EKG he has to stand by the edge of the bed and will not lay down because his knees hurt him. He is sitting there short of breath and wheezing. He seems to be rather anxious and distraught and yet he does not seem to be able to cooperate with what we need to do. He does have a history of DVT in the past he is on Coumadin presently. He has no history of lung problems or congestive heart failure. And he has no history of lung problems. I am not certain as to the sequence of events for coretta's visit. We will attempt to calm him down after which I will attempt to get a better history from him. His tells me that he started having some headaches tonight that apparently unusual for him but he cannot seem to add to this history. Additional history. He has only had his left knee replaced and he was doing very well but then insurance wouldn't pay for the surgery of the physical therapy so they stopped the physical therapy is about 2 years ago and then apparently in June of this year he started having increased left knee pain and it has steadily gotten worse. He seen several other orthopedic specialists who tell me he has to lose weight and stopped chewing tobacco before they'll consider doing his right knee and his hips. He has lost 30 pounds but he has not stopped chewing tobacco. Apparently this evening he had one episode where his left chest seemed to tighten up but it did not go into his arm or into his neck and lasted for approximately 60 seconds. This shortness of breath has been on and off mostly today. He complains of left shoulder spur that when he raises his shoulder causes increased pain in his trapezius muscle and he gets a spasm which caused him to have a headache. He has a myriad number of problems this morning. Chest Pain Score (Numeric/FACES): 4 Left Knee Pain Score (Numeric/FACES): 10 - Related Data Allergies Allergy/AdvReac Type Severity Reaction Status Date / Time amoxicillin trihydrate Allergy Hives Verified 01/29/19 00:52 [From Augmentin] bee venom protein (honey bee) Allergy Swelling Verified 01/29/19 00:52 potassium clavulanate Allergy Hives Verified 01/29/19 00:52 [From Augmentin] Home Meds: Home Meds Aspirin 81 mg PO DAILY 02/05/17 [History] Esomeprazole Magnesium [Nexium 24Hr] 20 mg PO DAILY 02/05/17 [History] Furosemide 20 mg PO DAILY 02/05/17 [History] [place]-3 Fatty Acids [Fish Oil] 4,000 mg PO DAILY 02/05/17 [History] Pramipexole Di-HCl [Mirapex] 1 mg PO BEDTIME 02/05/17 [History] DULoxetine [Cymbalta] 60 mg PO BID 06/19/18 [History] Gabapentin [Neurontin] 100 mg PO TID 06/19/18 [History] Warfarin Sodium [Coumadin] 7.5 mg PO DAILY 06/19/18 [History] buPROPion [buPROPion XL] 150 mg PO DAILY 06/19/18 [History] traMADol [Ultram] 50 mg PO Q8H PRN #15 tablet 01/29/19 [Rx] Past Medical History HEENT History: Reports: Impaired Vision Cardiovascular History: Reports: Blood Clots/VTE/DVT, High Cholesterol, Hypertension Gastrointestinal History: Reports: GERD Other Gastrointestinal History: heartburn Genitourinary History: Reports: Urinary Incontinence Other Genitourinary History: urgency, frequency Musculoskeletal History: Reports: Osteoarthritis Neurological History: Reports: Other (See Below) Other Neuro History: headache Psychiatric History: Reports: Anxiety, Depression Endocrine/Metabolic History: Reports: Obesity/BMI 30+ - Past Surgical History GI Surgical History: Reports: Colonoscopy Musculoskeletal Surgical History: Reports: Knee Replacement Social & Family History - Family History Family Medical History: Noncontributory Cardiac: Reports: High Cholesterol, Hypertension Neurological: Reports: CVA, Dementia - Caffeine Use Caffeine Use: Reports: Soda - Living Situation & Occupation Living situation: Reports: , with Spouse Occupation: Unemployed ED ROS GENERAL - Review of Systems Review Of Systems: See Below Constitutional: Denies: Fever, Chills HEENT: Denies: Throat Pain Respiratory: Reports: Shortness of Breath, Wheezing. Denies: Cough Cardiovascular: Reports: Chest Pain, Other (Trace edema in the lower extremities ) Endocrine: Reports: No Symptoms GI/Abdominal: Denies: Abdominal Pain, Nausea, Vomiting : Reports: No Symptoms Musculoskeletal: Reports: Other (Bilateral knee pain and left worse than right) Skin: Reports: No Symptoms Neurological: Reports: Headache Psychiatric: Reports: Agitation Hematologic/Lymphatic: Reports: No Symptoms ED EXAM, GENERAL - Physical Exam Exam: See Below Exam Limited By: Other (Rather agitated) General Appearance: Alert, Moderate Distress, Obese Eye Exam: Bilateral Eye: Normal Inspection Ears: Normal External Exam Nose: Normal Inspection Throat/Mouth: Normal Lips, Other (He has audible expiratory wheezing) Head: Normocephalic Neck: Supple Respiratory/Chest: Other (His lungs appear to be clear but they are very shallow respirations, he denies pain with respiration) Cardiovascular: Regular Rate, Rhythm, No Murmur, Tachycardia GI/Abdominal: Other (He has a very protuberant abdomen that appears to be tight. He says he has no abdominal pain, bowel sounds are quiet) Back Exam: Normal Inspection Extremities: Other (He complains of severe left knee pain there is some trace swelling in the ankles bilaterally, he does complain of some right knee pain as well, he standing on the floor with his rear end on the stretcher but he'll not get up in the stretcher for us to do anything with him) Neurological: Alert, Oriented Psychiatric: Anxious Skin Exam: Warm, Dry. No: Diaphoretic Course - Vital Signs Last Recorded V/S: Last Vital Signs Temp 97.5 F 01/29/19 00:58 Pulse 92 01/29/19 02:08 Resp 25 H 01/29/19 00:58 BP 101/65 01/29/19 02:00 Pulse Ox 84 L 01/29/19 02:08 - Orders/Labs/Meds Orders: Active Orders 24 hr Category Date Time Status EKG 12 Lead [EKG Documentation Completion] [RC] STAT Care 01/29/19 01:08 Active RT Aerosol Therapy [RC] ASDIRECTED Care 01/29/19 01:08 Active CXR [Chest 1V Frontal] [CR] Stat Exams 01/29/19 01:07 Taken ABG [BLOOD GAS ARTERIAL] [BG] Stat Lab 01/29/19 01:52 Results Labs: Laboratory Tests 01/29/19 01/29/19 01/29/19 Range/Units 01:52 02:29 02:29 WBC 11.60 H (4.23-9.07) K/mm3 RBC 5.19 (4.63-6.08) M/mm3 Hgb 14.8 (13.7-17.5) gm/L Hct 46.5 (40.1-51.0) % MCV 89.6 (79.0-92.2) fl MCH 28.5 (25.7-32.2) pg MCHC 31.8 L (32.2-35.5) g/dl RDW Std Deviation 42.4 (35.1-43.9) fL Plt Count 205 (163-337) K/mm3 MPV 10.9 (9.4-12.3) fl Neut % (Auto) 88.8 H (34.0-67.9) % Lymph % (Auto) 6.6 L (21.8-53.1) % [place] % (Auto) 3.7 L (5.3-12.2) % Eos % (Auto) 0.7 L (0.8-7.0) Baso % (Auto) 0.1 (0.1-1.2) % Neut # (Auto) 10.31 H (1.78-5.38) K/mm3 Lymph # (Auto) 0.76 L (1.32-3.57) K/mm3 [place] # (Auto) 0.43 (0.30-0.82) K/mm3 Eos # (Auto) 0.08 (0.04-0.54) K/mm3 Baso # (Auto) 0.01 (0.01-0.08) K/mm3 Manual Slide Review Normal smear PT (9.5-12.1) SECONDS INR D-Dimer, Quantitative (0.19-0.50) mg/L Puncture Site Lt radial ABG pH 7.36 (7.35-7.45) ABG pCO2 45.8 H (35.0-45.0) mmHg ABG pO2 53.0 L (80.0-100.0) mmHg ABG HCO3 25.5 (22.0-26.0) meq/L ABG O2 Saturation 84.9 L (96.0-97.0) % ABG Base Excess 0.3 (-2-2.0) Alden Test Positive A-a Gradient 0 mmHg O2 Delivery Device . FiO2 0.00 L (21.00-100.00) % Sodium 136 (136-145) mEq/L Potassium 3.9 (3.5-5.1) mEq/L Chloride 101 (98-107) mEq/L Carbon Dioxide 29 (21-32) mEq/L Anion Gap 9.9 (5-15) BUN 17 (7-18) mg/dL Creatinine 1.0 (0.7-1.3) mg/dL Est Cr Clr Drug Dosing TNP Estimated GFR (MDRD) > 60 (>60) mL/min BUN/Creatinine Ratio 17.0 (14-18) Glucose 154 H (74-106) mg/dL Calcium 8.8 (8.5-10.1) mg/dL Total Bilirubin 0.3 (0.2-1.0) mg/dL AST 21 (15-37) U/L ALT 41 (16-63) U/L Alkaline Phosphatase 80 (46-116) U/L Troponin I < 0.017 (0.00-0.056) ng/mL NT-Pro-B Natriuret Pep (0-125) pg/mL Total Protein 7.0 (6.4-8.2) g/dl Albumin 3.3 L (3.4-5.0) g/dl Globulin 3.7 gm/dL Albumin/Globulin Ratio 0.9 L (1-2) 01/29/19 01/29/19 01/29/19 Range/Units 02:29 02:29 02:29 WBC (4.23-9.07) K/mm3 RBC (4.63-6.08) M/mm3 Hgb (13.7-17.5) gm/L Hct (40.1-51.0) % MCV (79.0-92.2) fl MCH (25.7-32.2) pg MCHC (32.2-35.5) g/dl RDW Std Deviation (35.1-43.9) fL Plt Count (163-337) K/mm3 MPV (9.4-12.3) fl Neut % (Auto) (34.0-67.9) % Lymph % (Auto) (21.8-53.1) % [place] % (Auto) (5.3-12.2) % Eos % (Auto) (0.8-7.0) Baso % (Auto) (0.1-1.2) % Neut # (Auto) (1.78-5.38) K/mm3 Lymph # (Auto) (1.32-3.57) K/mm3 [place] # (Auto) (0.30-0.82) K/mm3 Eos # (Auto) (0.04-0.54) K/mm3 Baso # (Auto) (0.01-0.08) K/mm3 Manual Slide Review PT 30.5 H (9.5-12.1) SECONDS INR 2.86 D-Dimer, Quantitative 0.41 (0.19-0.50) mg/L Puncture Site ABG pH (7.35-7.45) ABG pCO2 (35.0-45.0) mmHg ABG pO2 (80.0-100.0) mmHg ABG HCO3 (22.0-26.0) meq/L ABG O2 Saturation (96.0-97.0) % ABG Base Excess (-2-2.0) Ald[place] Test A-a Gradient mmHg O2 Delivery Device FiO2 (21.00-100.00) % Sodium (136-145) mEq/L Potassium (3.5-5.1) mEq/L Chloride (98-107) mEq/L Carbon Dioxide (21-32) mEq/L Anion Gap (5-15) BUN (7-18) mg/dL Creatinine (0.7-1.3) mg/dL Est Cr Clr Drug Dosing Estimated GFR (MDRD) (>60) mL/min BUN/Creatinine Ratio (14-18) Glucose (74-106) mg/dL Calcium (8.5-10.1) mg/dL Total Bilirubin (0.2-1.0) mg/dL AST (15-37) U/L ALT (16-63) U/L Alkaline Phosphatase (46-116) U/L Troponin I (0.00-0.056) ng/mL NT-Pro-B Natriuret Pep 37 (0-125) pg/mL Total Protein (6.4-8.2) g/dl Albumin (3.4-5.0) g/dl Globulin gm/dL Albumin/Globulin Ratio (1-2) Meds: Medications Discontinued Medications Generic Name Dose Route Start Last Admin Trade Name Marcus PRN Reason Stop Dose Admin Albuterol/Ipratropium 3 ml 01/29/19 01:08 01/29/19 02:08 Duoneb 3.0-0.5 Mg/3 Ml NEB 01/29/19 01:09 3 ml ONETIME ONE Administration Hydromorphone HCl 1 mg 01/29/19 01:06 Dilaudid IVPUSH 01/29/19 01:07 ONETIME ONE Hydromorphone HCl 2 mg 01/29/19 01:44 01/29/19 01:55 Dilaudid IM 01/29/19 01:45 2 mg ONETIME ONE Administration Lorazepam 1 mg 01/29/19 01:45 01/29/19 01:55 Ativan IM 01/29/19 01:46 1 mg ONETIME ONE Administration Ondansetron HCl 4 mg 01/29/19 01:06 Zofran IVPUSH 01/29/19 01:07 ONETIME ONE - Radiology Interpretation Free Text/Narrative:: One view chest x-ray shows very poor inspiratory effort the lung aranda in the bases are somewhat dense I do not suspect at this time and infiltrate. - Re-Assessments/Exams Free Text/Narrative Re-Assessment/Exam: 01/29/19 04:01 I spoke to the and the patient regarding the test results. All lab levels were essentially normal. He is not in congestive failure the his d-dimer was normal his troponin was normal his EKG was essentially normal. It would appear that he is somewhat anxious and sensitive to his various pain receptors especially his left knee. Once we gave him a shot of medicine for pain and anxiety within 5 minutes. Was able to lay in bed and go to sleep. Obviously there is a certain amount of psychological preference for the medication to work that quickly. He is going to follow up with someone about his left knee I will provide him some tramadol to help with the pain of his left knee. He has very severe sleep apnea and I have encouraged him to make sure he wears a CPAP whenever he tries to sleep. He is chronically oxygen deprived according to his and the blood gas that we got but apparently that is normal. Departure - Departure Time of Disposition: 04:03 Disposition: Home, Self-Care 01 Condition: Poor Clinical Impression: History of left knee replacement, Chronic pain of left knee, Severe sleep apnea Anxiety disorder Qualifiers: Anxiety disorder type: generalized anxiety disorder Qualified Code(s): F41.1 - Generalized anxiety disorder Prescriptions: traMADol [Ultram] 50 mg PO Q8H PRN #15 tablet PRN Reason: Pain Instructions: Generalized Anxiety Disorder, Adult Referrals: Miguel Bee MD [Primary Care Provider] - Forms: ED Department Discharge Additional Instructions: I would encourage you to follow-up with your family doctor and see if he wouldn' t refer you to for pain management for your left knee, take the tramadol as needed for your knee pain and especially at nighttime to help you sleep, also ask your family doctor whether there might be something better for your anxiety to help control it, make sure you use your CPAP at all times when you're trying to sleep or take a nap, continue with your medications as prescribed, return to the ER if needed - My Orders Last 24 Hours: My Active Orders 01/29/19 01:07 CXR [Chest 1V Frontal] [CR] Stat 01/29/19 01:08 EKG 12 Lead [EKG Documentation Completion] [RC] STAT RT Aerosol Therapy [RC] ASDIRECTED 01/29/19 01:52 ABG [BLOOD GAS ARTERIAL] [BG] Stat - Assessment/Plan Last 24 Hours: My Active Orders 01/29/19 01:07 CXR [Chest 1V Frontal] [CR] Stat 01/29/19 01:08 EKG 12 Lead [EKG Documentation Completion] [RC] STAT RT Aerosol Therapy [RC] ASDIRECTED 01/29/19 01:52 ABG [BLOOD GAS ARTERIAL] [BG] Stat
[2019-01-29] MEDS ORDERED: HYDROmorphone 1 MG/ML Syringe IM ONE (01:44)
[2019-01-29] MEDS ORDERED: LORazepam 2 MG/ML SDV IM ONE (01:45)
[2019-01-29 02:15] VITALS: BP 101/65
--- NOTE | 2019-01-29 10:29 | CR ---
Chest: Portable view of the chest was obtained. Comparison: Prior chest x-ray of 09/11/17. Heart size is slightly enlarged. Mild tortuosity of the thoracic aorta is seen. Lungs are clear with no acute parenchymal change. Impression: 1. Slightly cardiomegaly. Nothing acute is seen. Diagnostic code #2
== END 2019-01-29 04:18 | disposition home or self-care (01) ==
LOC: JD.ED 00:47
DX: F41.1 Generalized anxiety disorder (principal); G47.30 Sleep apnea, unspecified; M25.562 Pain in left knee; G89.29 Other chronic pain; Z96.652 Presence of left artificial knee joint; F41.9 Anxiety disorder, unspecified; F32.9 Major depressive disorder, single episode, unspecified; Z79.82 Long term (current) use of aspirin; Z79.899 Other long term (current) drug therapy; Z88.1 Allergy status to other antibiotic agents; Z91.030 Bee allergy status
CPT/HCPCS: 36415; 36600; 71045; 80053; 82803; 83880; 84484; 85025; 85379; 85610; 93005; 94640; 96372; 99285; J1170; J2060; 93010; 99284; J7620-GY

== ENCOUNTER 2019-12-18 13:36 | Emergency (ER) | payer MEDICARE, OTHER ==
--- NOTE | 2019-12-18 14:30 | EDM.PDOC ---
<MargaretKellyDina - Last Filed: 12/18/19 14:54> ED HPI GENERAL MEDICAL PROBLEM - General Chief Complaint: Cardiovascular Problem Stated Complaint: HIGH BP/NUMBNESS IN BOTH LEGS Time Seen by Provider: 12/18/19 13:55 Source of Information: Reports: Patient History Limitations: Reports: No Limitations - History of Present Illness INITIAL COMMENTS - FREE TEXT/NARRATIVE: Patient is a pleasant 59-year-old male who presents to the ED for bilateral lower extremity edema and burning sensation over bilateral forefoot regions. He reports that his legs are typically swollen and he is on 20 mg of Lasix twice per day, but the swelling has been progressively increasing for the past week. He reports that the swelling today has slightly improved, more in the right foot than the left. He notes that occasionally he will have tingling in his toes. He also notes the reddish/purple color started a few days ago, initially at his toes and has moved down his foot. He also reports that he has been having headaches more frequently. He reports that at home his BP this morning was 210s/100s and then on recheck was 160s/100s. In the ED upon arrival BP was 148/83. He denies chest pain, new onset shortness of breath, fever, chills, or pain in either legs. Onset: Gradual Duration: Day(s): Location: Reports: Lower Extremity, Left, Lower Extremity, Right Quality: Reports: Burning (bilateral forefoot region) Left Hip Pain Score (Numeric/FACES): 10 - Related Data Allergies Allergy/AdvReac Type Severity Reaction Status Date / Time amoxicillin trihydrate Allergy Hives Verified 01/29/19 00:52 [From Augmentin] bee venom protein (honey bee) Allergy Swelling Verified 01/29/19 00:52 potassium clavulanate Allergy Hives Verified 01/29/19 00:52 [From Augmentin] Home Meds: Home Meds Aspirin 81 mg PO DAILY 02/05/17 [History] Esomeprazole Magnesium [Nexium 24Hr] 20 mg PO DAILY 02/05/17 [History] Furosemide 20 mg PO DAILY 02/05/17 [History] [place]-3 Fatty Acids [Fish Oil] 4,000 mg PO DAILY 02/05/17 [History] Pramipexole Di-HCl [Mirapex] 1 mg PO BEDTIME 02/05/17 [History] DULoxetine [Cymbalta] 60 mg PO BID 06/19/18 [History] Gabapentin [Neurontin] 100 mg PO TID 06/19/18 [History] Warfarin Sodium [Coumadin] 7.5 mg PO DAILY 06/19/18 [History] buPROPion [buPROPion XL] 150 mg PO DAILY 06/19/18 [History] Furosemide [Lasix] 40 mg PO BID #10 tablet 12/18/19 [Rx] Hydrocodone/Acetaminophen [Hydrocodon-Acetaminophen 5-325] 1 - 2 each PO Q6HR PRN #20 tablet 12/18/19 [Rx] Past Medical History HEENT History: Reports: Impaired Vision Cardiovascular History: Reports: Blood Clots/VTE/DVT, High Cholesterol, Hypertension Gastrointestinal History: Reports: GERD Other Gastrointestinal History: heartburn Genitourinary History: Reports: Urinary Incontinence Other Genitourinary History: urgency, frequency Musculoskeletal History: Reports: Osteoarthritis Neurological History: Reports: Other (See Below) Other Neuro History: headache Psychiatric History: Reports: Anxiety, Depression Endocrine/Metabolic History: Reports: Obesity/BMI 30+ - Past Surgical History GI Surgical History: Reports: Colonoscopy Musculoskeletal Surgical History: Reports: Knee Replacement Social & Family History - Family History Family Medical History: Noncontributory Cardiac: Reports: High Cholesterol, Hypertension Neurological: Reports: CVA, Dementia - Caffeine Use Caffeine Use: Reports: Soda - Living Situation & Occupation Living situation: Reports: , with Spouse Occupation: Unemployed ED ROS GENERAL - Review of Systems Review Of Systems: See Below Constitutional: Reports: No Symptoms. Denies: Fever, Chills Respiratory: Reports: Shortness of Breath (chronic-unchanged). Denies: Wheezing , Cough Cardiovascular: Reports: Edema (moderate below the knee on bilateral lower extremities). Denies: Chest Pain, Lightheadedness, Syncope GI/Abdominal: Denies: Abdominal Pain, Diarrhea, Nausea, Vomiting Musculoskeletal: Reports: Foot Pain (burning sensation bilateral forefoot regions). Denies: Muscle Pain Skin: Reports: Change in Color (both feet- purple/reddish color at toes and forefoot. ). Denies: Bruising, Rash Neurological: Reports: Headache (occasional), Tingling (bilateral feet occasionally). Denies: Dizziness, Numbness, Syncope, Weakness Psychiatric: Reports: No Symptoms ED EXAM, GENERAL - Physical Exam Exam: See Below Exam Limited By: No Limitations General Appearance: Alert, WD/WN, No Apparent Distress Respiratory/Chest: No Respiratory Distress, Lungs Clear, Normal Breath Sounds, No Accessory Muscle Use, Chest Non-Tender Cardiovascular: Regular Rate, Rhythm, No Gallop, No Murmur, No Rub, Other ( Bilateral lower extremity edema from below the knees down to toes- moderate with no pitting) Peripheral Pulses: 1+: Posterior Tibial (L), Posterior Tibial (R), Dorsalis Pedis (L), Dorsalis Pedis (R) GI/Abdominal: Normal Bowel Sounds, Soft, Non-Tender, No Organomegaly, No Distention, No Mass Back Exam: Normal Inspection, Full Range of Motion, NT Extremities: Non-Tender, Normal Capillary Refill, Pedal Edema (bilateral- moderate), Increased Warmth (bilateral feet), Redness (bilateral feet over the forefoot region) Neurological: Alert, Oriented, Normal Cognition, Normal Gait, No Motor/Sensory Deficits Psychiatric: Normal Affect, Normal Mood Skin Exam: Warm, Dry, Intact, No Rash Course - Vital Signs Last Recorded V/S: Last Vital Signs Temp 98.3 F 12/18/19 13:52 Pulse 61 12/18/19 13:52 Resp 16 12/18/19 13:52 BP 148/83 H 12/18/19 13:52 Pulse Ox 93 L 12/18/19 13:52 - Orders/Labs/Meds Orders: Active Orders 24 hr Category Date Time Status Cardiac Monitoring [RC] . DIRECTED Care 12/18/19 14:31 Active EKG Documentation Completion [RC] STAT Care 12/18/19 14:32 Active Peripheral IV Care [RC] . DIRECTED Care 12/18/19 14:32 Active Sodium Chloride 0.9% [Saline Flush] Med 12/18/19 14:31 Active 10 ml FLUSH ASDIRECTED PRN Peripheral IV Insertion Adult [OM.PC] Stat Oth 12/18/19 14:31 Ordered Medication Orders Sodium Chloride (Saline Flush) 10 ml FLUSH ASDIRECTED PRN PRN Reason: Keep Vein Open Labs: Laboratory Tests 12/18/19 12/18/19 12/18/19 Range/Units 15:45 15:45 16:10 WBC 7.21 (4.23-9.07) K/mm3 RBC 5.21 (4.63-6.08) M/mm3 Hgb 15.1 (13.7-17.5) gm/dl Hct 48.2 (40.1-51.0) % MCV 92.5 H (79.0-92.2) fl MCH 29.0 (25.7-32.2) pg MCHC 31.3 L (32.2-35.5) g/dl RDW Std Deviation 43.0 (35.1-43.9) fL Plt Count 208 (163-337) K/mm3 MPV 10.8 (9.4-12.3) fl Neut % (Auto) 62.7 (34.0-67.9) % Lymph % (Auto) 23.6 (21.8-53.1) % [place] % (Auto) 8.6 (5.3-12.2) % Eos % (Auto) 4.4 (0.8-7.0) Baso % (Auto) 0.4 (0.1-1.2) % Neut # (Auto) 4.52 (1.78-5.38) K/mm3 Lymph # (Auto) 1.70 (1.32-3.57) K/mm3 [place] # (Auto) 0.62 (0.30-0.82) K/mm3 Eos # (Auto) 0.32 (0.04-0.54) K/mm3 Baso # (Auto) 0.03 (0.01-0.08) K/mm3 Sodium 135 L (136-145) mEq/L Potassium 4.3 (3.5-5.1) mEq/L Chloride 98 (98-107) mEq/L Carbon Dioxide 27 (21-32) mEq/L Anion Gap 14.3 (5-15) BUN 19 H (7-18) mg/dL Creatinine 1.0 (0.7-1.3) mg/dL Est Cr Clr Drug Dosing TNP Estimated GFR (MDRD) > 60 (>60) mL/min BUN/Creatinine Ratio 19.0 H (14-18) Glucose 114 H (74-106) mg/dL Calcium 8.6 (8.5-10.1) mg/dL Total Bilirubin 0.4 (0.2-1.0) mg/dL AST 27 (15-37) U/L ALT 45 (16-63) U/L Alkaline Phosphatase 80 (46-116) U/L Troponin I < 0.017 (0.00-0.056) ng/mL NT-Pro-B Natriuret Pep 31 (0-125) pg/mL Total Protein 7.6 (6.4-8.2) g/dl Albumin 3.4 (3.4-5.0) g/dl Globulin 4.2 gm/dL Albumin/Globulin Ratio 0.8 L (1-2) Meds: Medications Generic Name Dose Route Start Last Admin Trade Name Freq PRN Reason Stop Dose Admin Sodium Chloride 10 ml 12/18/19 14:31 Saline Flush FLUSH ASDIRECTED PRN Keep Vein Open Departure - Departure Disposition: Home, Self-Care 01 Clinical Impression: Peripheral edema, Left hip pain Prescriptions: Hydrocodone/Acetaminophen [Hydrocodon-Acetaminophen 5-325] 1 - 2 each PO Q6HR PRN #20 tablet PRN Reason: Pain Furosemide [Lasix] 40 mg PO BID #10 tablet Referrals: Miguel Bee MD [Primary Care Provider] - Forms: ED Department Discharge Additional Instructions: Take the lasix 40mg 2 times per day for 5 days. Take tylenol or motrin for your hip pain. If that does not help, try the hydrocodone. Follow up with your doctor in 5 days. Please return if you are worse. Sepsis Event Note - Evaluation Sepsis Screening Result: No Definite Risk - Focused Exam Vital Signs: Vital Signs Temp Pulse Resp BP Pulse Ox 12/18/19 13:52 98.3 F 61 16 148/83 H 93 L Date Exam was Performed: 12/18/19 Time Exam was Performed: 14:54 - My Orders Last 24 Hours: My Active Orders 12/18/19 14:31 Cardiac Monitoring [RC] . DIRECTED Sodium Chloride 0.9% [Saline Flush] 10 ml FLUSH ASDIRECTED PRN Peripheral IV Insertion Adult [OM.PC] Stat 12/18/19 14:32 EKG Documentation Completion [RC] STAT Peripheral IV Care [RC] . DIRECTED - Assessment/Plan Last 24 Hours: My Active Orders 12/18/19 14:31 Cardiac Monitoring [RC] . DIRECTED Sodium Chloride 0.9% [Saline Flush] 10 ml FLUSH ASDIRECTED PRN Peripheral IV Insertion Adult [OM.PC] Stat 12/18/19 14:32 EKG Documentation Completion [RC] STAT Peripheral IV Care [RC] . DIRECTED <Rojelio Narayan - Last Filed: 12/18/19 17:15> EKG INTERPRETATION EKG Date: 12/18/19 Time: 14:54 Rhythm: NSR Rate (Beats/Min): 64 Maurice: Normal P-Wave: Present QRS: Normal ST-T: Normal QT: Normal Course - Re-Assessments/Exams Free Text/Narrative Re-Assessment/Exam: 12/18/19 17:10 I examined the patient myself and I agree with Dina's assessment and plan. His EKG shows a NSR with no acute changes. His CXR looks good. His CBC looks good. His Na was a little low at 135. His glucose was elevated at 114. His troponin is negative. His BNP is negative. I will go up on his lasix for 5 days and give him something for the pain. Departure - Departure Time of Disposition: 17:15 Condition: Good Sepsis Event Note - Focused Exam Date Exam was Performed: 12/18/19 Time Exam was Performed: 17:09
[2019-12-18] MEDS ORDERED: Sodium Chloride 0.9% 10 ML Syringe FLUSH PRN (14:31)
--- NOTE | 2019-12-18 15:13 | CR ---
Chest: Two views of the chest were obtained. Comparison: Prior chest x-ray of 01/29/19. Heart size has a slight left ventricular configuration. Tortuous thoracic aorta is noted. Pulmonary vessels are felt to be slightly congested. Lungs otherwise are clear. Degenerative endplate spurring is noted within the spine with scattered disc space narrowing. Impression: 1. Mild pulmonary vascular congestion. 2. Other findings as noted above. Diagnostic code #3 This report was dictated in [place] Standard Time
[2019-12-18 17:24] VITALS: BP 150/89; PULSE 72
== END 2019-12-18 17:20 | disposition home or self-care (01) ==
LOC: JD.ED 13:36
DX: R60.0 Localized edema (principal); M25.552 Pain in left hip; K21.9 Gastro-esophageal reflux disease without esophagitis; F41.9 Anxiety disorder, unspecified; F32.9 Major depressive disorder, single episode, unspecified; Z86.718 Personal history of other venous thrombosis and embolism; E66.9 Obesity, unspecified; M19.90 Unspecified osteoarthritis, unspecified site; Z79.01 Long term (current) use of anticoagulants; Z88.1 Allergy status to other antibiotic agents; Z79.82 Long term (current) use of aspirin; Z79.899 Other long term (current) drug therapy; R06.02 Shortness of breath
CPT/HCPCS: 36415; 71046; 71046-26; 80053; 83880; 84484; 85025; 93005; 93010; 99283; 99284-25

== ENCOUNTER 2020-10-04 12:41 | Emergency (ER) | payer MEDICARE ==
[2020-10-04] MEDS ORDERED: Sodium Chloride 0.9% 10 ML Syringe FLUSH PRN (13:09)
--- NOTE | 2020-10-04 14:03 | EDM.PDOC ---
<Rashel Joshua - Last Filed: 10/04/20 22:58> ED HPI GENERAL MEDICAL PROBLEM - General Chief Complaint: Respiratory Problem Stated Complaint: LOW O2 SENT BY [facility] Time Seen by Provider: 10/04/20 13:09 - Related Data Allergies Allergy/AdvReac Type Severity Reaction Status Date / Time amoxicillin trihydrate Allergy Hives Verified 01/29/19 00:52 [From Augmentin] bee venom protein (honey bee) Allergy Swelling Verified 01/29/19 00:52 potassium clavulanate Allergy Hives Verified 01/29/19 00:52 [From Augmentin] Home Meds: Home Meds Aspirin 81 mg PO DAILY 02/05/17 [History] Esomeprazole Magnesium [Nexium 24Hr] 20 mg PO DAILY 02/05/17 [History] Furosemide 20 mg PO BID 02/05/17 [History] Lyman-3 Fatty Acids [Fish Oil] 4,000 mg PO BID 02/05/17 [History] Pramipexole Di-HCl [Mirapex] 1 mg PO BEDTIME 02/05/17 [History] DULoxetine [Cymbalta] 60 mg PO BID 06/19/18 [History] Gabapentin [Neurontin] 100 mg PO TID 06/19/18 [History] Warfarin Sodium [Coumadin] 7.5 mg PO DAILY 06/19/18 [History] buPROPion [buPROPion XL] 150 mg PO DAILY 06/19/18 [History] Metoprolol Succinate [Toprol XL] 25 mg PO BID 10/04/20 [History] Potassium Chloride 20 meq PO DAILY 10/04/20 [History] Departure - Departure Time of Disposition: 22:58 Disposition: DC/Tfer to Acute Hospital 02 Condition: Serious Clinical Impression: Hypoxia, COVID-19 determined by clinical diagnostic criteria, History of DVT (deep vein thrombosis), Abnormal chest x-ray, Viral pneumonia - Discharge Information Referrals: Miguel Bee MD [Primary Care Provider] - Forms: ED Department Discharge Additional Instructions: Patient transferred to [facility] in [place] as current we we are on diversion. Patient had a negative Covid test done through the emergency department but clinically has bilateral pulmonary infiltrates compatible with viral pneumonia and COVID-19 illness. He is hypoxic on room air and requires oxygen supplementation. <Chantel Mao V - Last Filed: 10/06/20 21:31> ED HPI GENERAL MEDICAL PROBLEM - General Source of Information: Reports: Patient, RN Notes Reviewed History Limitations: Reports: No Limitations - History of Present Illness INITIAL COMMENTS - FREE TEXT/NARRATIVE: Patient is a 60-year-old male who presents to the ED for the evaluation of his low O2 sats. Patient was sent by the [facility]. He went to Dr. Chadwick's office for a preop exam for hernia repair and was found to have low O2 sats. O2 sats are 78% on room air. He was placed on 4 L via nasal cannula, they did improved to 99% and he subsequently turned down to 2 L. Patient is still 99% on on the 2 L nasal cannula. Patient notes that 3 days ago, he developed some body aches, low-grade fever, chills, and a cough and he states that he was getting up some moon-colored sputum. He does not remember being around anyone that is been sick. He states he was tested for COVID-19 quite a while ago and he believes it was negative at that time. Patient has no history of prior lung issues that he is aware of. He denies any COPD. Patient was mildly dyspneic when coming back to the room but he does get slightly winded with exertion. He also has trouble with his knees and hips when he is walking. Primary care provider is Dr. Jewell. He also notes some swelling on his ankles. Past Medical History HEENT History: Reports: Impaired Vision Cardiovascular History: Reports: Blood Clots/VTE/DVT, High Cholesterol, Hypertension Gastrointestinal History: Reports: GERD Other Gastrointestinal History: heartburn Genitourinary History: Reports: Urinary Incontinence Other Genitourinary History: urgency, frequency Musculoskeletal History: Reports: Osteoarthritis Neurological History: Reports: Other (See Below) Other Neuro History: headache Psychiatric History: Reports: Anxiety, Depression Endocrine/Metabolic History: Reports: Obesity/BMI 30+ - Past Surgical History GI Surgical History: Reports: Colonoscopy Musculoskeletal Surgical History: Reports: Knee Replacement Social & Family History - Family History Family Medical History: No Pertinent Family History Cardiac: Reports: High Cholesterol, Hypertension Neurological: Reports: CVA, Dementia - Caffeine Use Caffeine Use: Reports: Soda - Living Situation & Occupation Living situation: Reports: , with Spouse Occupation: Unemployed ED ROS GENERAL - Review of Systems Review Of Systems: Comprehensive ROS is negative, except as noted in HPI. ED EXAM, GENERAL - Physical Exam Exam: See Below Exam Limited By: No Limitations General Appearance: Alert, WD/WN, No Apparent Distress Respiratory/Chest: No Respiratory Distress, Lungs Clear, Chest Non-Tender, Decreased Breath Sounds (diminished diffuse bilaterally) Cardiovascular: Normal Peripheral Pulses, Regular Rate, Rhythm, No Murmur, Other (1+ pitting edema ) GI/Abdominal: Normal Bowel Sounds, Soft, Non-Tender, No Distention, No Mass Extremities: Normal Inspection, Normal Capillary Refill Neurological: Alert, Oriented, Normal Cognition, No Motor/Sensory Deficits Psychiatric: Normal Affect, Normal Mood Skin Exam: Warm, Dry, Intact, Normal Color, No Rash #1 Interpretation EKG Date: 10/04/20 Time: 13:29 Rhythm: NSR Rate (Beats/Min): 77 [place]: Normal P-Wave: Present QRS: Normal ST-T: Normal QT: Normal EKG Interpretation Comments: No obvious ischemia or acute ST changes noted, reviewed by myself and Dr. Richardson. Course - Vital Signs Last Recorded V/S: Last Vital Signs Temp 97.9 F 10/04/20 23:00 Pulse 80 10/04/20 23:00 Resp 20 10/04/20 23:00 BP 154/83 H 10/04/20 23:00 Pulse Ox 94 L 10/04/20 23:00 - Orders/Labs/Meds Labs: Laboratory Tests 10/04/20 10/04/20 10/04/20 Range/Units 13:30 13:45 13:45 WBC 6.21 (4.23-9.07) K/mm3 RBC 4.18 L (4.63-6.08) M/mm3 Hgb 12.5 L D (13.7-17.5) gm/dl Hct 39.7 L (40.1-51.0) % MCV 95.0 H (79.0-92.2) fl MCH 29.9 (25.7-32.2) pg MCHC 31.5 L (32.2-35.5) g/dl RDW Std Deviation 45.5 H (35.1-43.9) fL Plt Count 193 (163-337) K/mm3 MPV 10.8 (9.4-12.3) fl Neutrophils % (Manual) 66 H (40-60) % Band Neutrophils % 0 (0-10) % Lymphocytes % (Manual) 22 (20-40) % Atypical Lymphs % 0 % Monocytes % (Manual) 8 (2-10) % Eosinophils % (Manual) 3 (0.8-7.0) % Basophils % (Manual) 1 (0.2-1.2) Platelet Estimate Adequate RBC Morph Comment Normal PT (9.7-12.0) SECONDS INR APTT (21.7-31.4) SECONDS D-Dimer, Quantitative (0.19-0.50) mg/L Puncture Site ABG pH (7.35-7.45) ABG pCO2 (35.0-45.0) mmHg ABG pO2 (80.0-100.0) mmHg ABG HCO3 (22.0-26.0) meq/L ABG O2 Saturation (96.0-97.0) % ABG Base Excess (-2-2.0) Alden Test O2 Delivery Device Sodium (136-145) mEq/L Potassium (3.5-5.1) mEq/L Chloride (98-107) mEq/L Carbon Dioxide (21-32) mEq/L Anion Gap (5-15) BUN (7-18) mg/dL Creatinine (0.7-1.3) mg/dL Est Cr Clr Drug Dosing mL/min Estimated GFR (MDRD) (>60) mL/min BUN/Creatinine Ratio (14-18) Glucose (80-115) mg/dL Lactic Acid (0.4-2.0) mmol/L Calcium (8.5-10.1) mg/dL Magnesium (1.8-2.4) mg/dl Ferritin (26-388) ng/ml Total Bilirubin (0.2-1.0) mg/dL AST (15-37) U/L ALT (16-63) U/L Alkaline Phosphatase (46-116) U/L Lactate Dehydrogenase (85-227) U/L Troponin I (0.00-0.056) ng/mL C-Reactive Protein 5.9 H* (<1.0) mg/dL NT-Pro-B Natriuret Pep (0-125) pg/mL Total Protein (6.4-8.2) g/dl Albumin (3.4-5.0) g/dl Globulin gm/dL Albumin/Globulin Ratio (1-2) Influenza Type A RNA Negative (NEGATIVE) Influenza Type B RNA Negative (NEGATIVE) SARS-CoV-2 RNA (JOHN) Negative (NEGATIVE) 10/04/20 10/04/20 10/04/20 Range/Units 13:45 13:45 13:45 WBC (4.23-9.07) K/mm3 RBC (4.63-6.08) M/mm3 Hgb (13.7-17.5) gm/dl Hct (40.1-51.0) % MCV (79.0-92.2) fl MCH (25.7-32.2) pg MCHC (32.2-35.5) g/dl RDW Std Deviation (35.1-43.9) fL Plt Count (163-337) K/mm3 MPV (9.4-12.3) fl Neutrophils % (Manual) (40-60) % Band Neutrophils % (0-10) % Lymphocytes % (Manual) (20-40) % Atypical Lymphs % % Monocytes % (Manual) (2-10) % Eosinophils % (Manual) (0.8-7.0) % Basophils % (Manual) (0.2-1.2) Platelet Estimate RBC Morph Comment PT 21.3 H (9.7-12.0) SECONDS INR 2.02 APTT 35.2 H (21.7-31.4) SECONDS D-Dimer, Quantitative 0.29 (0.19-0.50) mg/L Puncture Site ABG pH (7.35-7.45) ABG pCO2 (35.0-45.0) mmHg ABG pO2 (80.0-100.0) mmHg ABG HCO3 (22.0-26.0) meq/L ABG O2 Saturation (96.0-97.0) % ABG Base Excess (-2-2.0) Alden Test O2 Delivery Device Sodium 140 (136-145) mEq/L Potassium 4.1 (3.5-5.1) mEq/L Chloride 101 (98-107) mEq/L Carbon Dioxide 35 H (21-32) mEq/L Anion Gap 8.1 (5-15) BUN 20 H (7-18) mg/dL Creatinine 1.2 (0.7-1.3) mg/dL Est Cr Clr Drug Dosing 54.13 mL/min Estimated GFR (MDRD) > 60 (>60) mL/min BUN/Creatinine Ratio 16.7 (14-18) Glucose 128 H (80-115) mg/dL Lactic Acid (0.4-2.0) mmol/L Calcium 8.6 (8.5-10.1) mg/dL Magnesium 2.1 (1.8-2.4) mg/dl Ferritin (26-388) ng/ml Total Bilirubin 0.3 (0.2-1.0) mg/dL AST 17 (15-37) U/L ALT 39 (16-63) U/L Alkaline Phosphatase 76 (46-116) U/L Lactate Dehydrogenase 214 (85-227) U/L Troponin I < 0.017 (0.00-0.056) ng/mL C-Reactive Protein (<1.0) mg/dL NT-Pro-B Natriuret Pep 122 (0-125) pg/mL Total Protein 7.3 (6.4-8.2) g/dl Albumin 3.1 L (3.4-5.0) g/dl Globulin 4.2 gm/dL Albumin/Globulin Ratio 0.7 L (1-2) Influenza Type A RNA (NEGATIVE) Influenza Type B RNA (NEGATIVE) SARS-CoV-2 RNA (JOHN) (NEGATIVE) 10/04/20 10/04/20 10/04/20 Range/Units 13:45 13:45 14:30 WBC (4.23-9.07) K/mm3 RBC (4.63-6.08) M/mm3 Hgb (13.7-17.5) gm/dl Hct (40.1-51.0) % MCV (79.0-92.2) fl MCH (25.7-32.2) pg MCHC (32.2-35.5) g/dl RDW Std Deviation (35.1-43.9) fL Plt Count (163-337) K/mm3 MPV (9.4-12.3) fl Neutrophils % (Manual) (40-60) % Band Neutrophils % (0-10) % Lymphocytes % (Manual) (20-40) % Atypical Lymphs % % Monocytes % (Manual) (2-10) % Eosinophils % (Manual) (0.8-7.0) % Basophils % (Manual) (0.2-1.2) Platelet Estimate RBC Morph Comment PT (9.7-12.0) SECONDS INR APTT (21.7-31.4) SECONDS D-Dimer, Quantitative (0.19-0.50) mg/L Puncture Site Rt radial ABG pH 7.33 L (7.35-7.45) ABG pCO2 62.7 H (35.0-45.0) mmHg ABG pO2 57.0 L (80.0-100.0) mmHg ABG HCO3 31.9 H (22.0-26.0) meq/L ABG O2 Saturation 83.6 L (96.0-97.0) % ABG Base Excess 4.7 H (-2-2.0) Alden Test Positive O2 Delivery Device Room air Sodium (136-145) mEq/L Potassium (3.5-5.1) mEq/L Chloride (98-107) mEq/L Carbon Dioxide (21-32) mEq/L Anion Gap (5-15) BUN (7-18) mg/dL Creatinine (0.7-1.3) mg/dL Est Cr Clr Drug Dosing mL/min Estimated GFR (MDRD) (>60) mL/min BUN/Creatinine Ratio (14-18) Glucose (80-115) mg/dL Lactic Acid 1.3 (0.4-2.0) mmol/L Calcium (8.5-10.1) mg/dL Magnesium (1.8-2.4) mg/dl Ferritin 113 (26-388) ng/ml Total Bilirubin (0.2-1.0) mg/dL AST (15-37) U/L ALT (16-63) U/L Alkaline Phosphatase (46-116) U/L Lactate Dehydrogenase (85-227) U/L Troponin I (0.00-0.056) ng/mL C-Reactive Protein (<1.0) mg/dL NT-Pro-B Natriuret Pep (0-125) pg/mL Total Protein (6.4-8.2) g/dl Albumin (3.4-5.0) g/dl Globulin gm/dL Albumin/Globulin Ratio (1-2) Influenza Type A RNA (NEGATIVE) Influenza Type B RNA (NEGATIVE) SARS-CoV-2 RNA (JOHN) (NEGATIVE) Meds: Medications Discontinued Medications Generic Name Dose Route Start Last Admin Trade Name Marcus PRN Reason Stop Dose Admin Dexamethasone 6 mg 10/04/20 18:32 10/04/20 19:50 Decadron IVPUSH 10/04/20 18:33 6 mg ONETIME ONE Administration Gabapentin 100 mg 10/04/20 21:10 10/04/20 22:13 Neurontin PO 10/04/20 21:11 100 mg ONETIME ONE Administration Remdesivir 200 mg/ Sodium 250 mls @ 250 mls/hr 10/04/20 18:31 10/04/20 19:50 Chloride IV 10/04/20 18:32 250 mls/hr ONETIME ONE Administration Sodium Chloride 100 mls @ 100 mls/min 10/04/20 19:15 Normal Saline IV ASDIRECTED ITALO Iopamidol 100 ml 10/04/20 16:10 10/04/20 19:09 Isovue-370 (76%) IVPUSH 10/04/20 16:11 100 ml ONETIME ONE Administration Iopamidol 100 ml 10/04/20 17:12 Isovue-370 (76%) IVPUSH 10/04/20 17:13 ONETIME ONE Sodium Chloride 10 ml 10/04/20 13:09 Saline Flush FLUSH ASDIRECTED PRN Keep Vein Open Sodium Chloride 10 ml 10/04/20 16:10 10/04/20 19:11 Saline Flush FLUSH 10/04/20 16:11 10 ml NOW STA Administration - Re-Assessments/Exams Free Text/Narrative Re-Assessment/Exam: 10/04/20 14:01 Patient presents to the ED for evaluation of his low oxygen saturations, and generalized body aches/chills. Laboratory evaluation has been taken to evaluate for possible Covid infection, with nasal swabs to evaluate for influenza as well. EKG demonstrated no acute abnormalities by my eye. Sepsis Event Note (ED) - Evaluation Sepsis Screening Result: No Definite Risk
[2020-10-04 14:17] LABS: CORONAVIRUS COVID-19 NAA NEGATIVE (NEGATIVE)
[2020-10-04] MEDS ORDERED: Sodium Chloride 0.9% 10 ML Syringe FLUSH STA (16:10)
[2020-10-04] MEDS ORDERED: Iopamidol 755 Mg/ML 100 ML Bottle IVPUSH ONE ×2 (16:10→17:12)
[2020-10-04] MEDS ORDERED: REMDESIVIR 200 MG in Sodium Chloride 0.9% 250 ML IV ONE (18:31)
[2020-10-04] MEDS ORDERED: Dexamethasone 10 MG/ML SDV IVPUSH ONE (18:32)
[2020-10-04] MEDS ORDERED: Sodium Chloride 0.9% 100 ML IV SCH (19:15)
[2020-10-04] MEDS ORDERED: Gabapentin 100 MG Cap PO ONE (21:10)
[2020-10-04 23:31] VITALS: BP 154/83; PULSE 80
--- NOTE | 2020-10-07 10:28 | CR ---
PROCEDURE INFORMATION: Exam: CT Chest With Contrast; Diagnostic Exam date and time: 10/04/2020 4:17 PM Age: 60 years old Clinical indication: Condition or disease; Other: HX of pe, hypoxic covid negative; Patient HX: HX pe hypoxic covid negative TECHNIQUE: Imaging protocol: Diagnostic computed tomography of the chest with intravenous contrast. 3D rendering (Not supervised by radiologist): MIP and/or 3D reconstructed images were created by the technologist. Contrast material: ISOVUE 370; Contrast volume: 100 ml; Contrast route: INTRAVENOUS (IV); COMPARISON: CT Chest Abdomen Pelvis w Cont 09/11/2017 2:55 PM FINDINGS: Lungs: Patchy consolidations in left lower lobe. Ground-glass opacities scattered in right lower lobe. Pleural space: Unremarkable. No pneumothorax. No pleural effusion. Heart: Unremarkable. No cardiomegaly. No pericardial effusion. Pulmonary arteries: Timing of contrast material limits examination. No pulmonary embolism in the main, left, right pulmonary arteries. The more peripheral first and second order branches cannot be adequately assessed. Aorta: Unremarkable. No aortic aneurysm. Lymph nodes: Unremarkable. No enlarged lymph nodes. Bones/joints: Unremarkable. No acute fracture. Soft tissues: Unremarkable. IMPRESSION: 1. Patchy left lower lobe consolidations 2. Nonspecific areas of ground-glass pneumonitis in right lower lobe 3. No central pulmonary embolism. Examination is significantly technically limited. Thank you for allowing us to participate in the care of your patient. Dictated and Authenticated by: Fracisco Matthews MD 10/04/2020 6:43 PM Central Time ([place] & [place]) KIMBERLY
== END 2020-10-04 23:00 ==
LOC: JD.ED 12:41
DX: U07.1 COVID-19 (principal); J12.89 Other viral pneumonia; R09.02 Hypoxemia; R93.89 Abnormal findings on diagnostic imaging of other specified body structures; I10 Essential (primary) hypertension; E78.00 Pure hypercholesterolemia, unspecified; K21.9 Gastro-esophageal reflux disease without esophagitis; M19.90 Unspecified osteoarthritis, unspecified site; E66.9 Obesity, unspecified; Z68.41 Body mass index [BMI] 40.0-44.9, adult; Z86.718 Personal history of other venous thrombosis and embolism; Z88.1 Allergy status to other antibiotic agents; Z91.030 Bee allergy status; Z79.82 Long term (current) use of aspirin; Z79.899 Other long term (current) drug therapy; Z79.01 Long term (current) use of anticoagulants
CPT/HCPCS: 0240U; 36415; 36600; 71045; 71275; 80053; 82728; 82803; 83605; 83615; 83735; 83880; 84484; 85007; 85027; 85379; 85610; 85730; 86140; 93005; 96365; 96375; 99285; A9270; J1100; J7050; Q9967; 93010

== ENCOUNTER 2020-12-26 13:22 | Emergency (ER) | payer MEDICARE ==
[2020-12-26] MEDS ORDERED: Sodium Chloride 0.9% 10 ML Syringe FLUSH PRN (14:01)
[2020-12-26] MEDS ORDERED: Furosemide 20 MG/2 ML VIAL IVPUSH ONE (14:03)
--- NOTE | 2020-12-26 15:20 | CR ---
Chest: Portable view of the chest was obtained. Comparison: Prior chest x-ray 12/18/19 and 01/29/19. Heart is slightly enlarged. Tortuous thoracic aorta is noted. Lungs show slight atelectasis within the left base. Pulmonary vessels may be minimally increased. Bony structures are grossly intact. Impression: 1. Possible minimal CHF. 2. Mild left lower lobe atelectasis. Diagnostic code #3
[2020-12-26] MEDS ORDERED: cefTRIAXone 2 GM in Sodium Chloride 0.9% 100 ML IV ONE (15:47)
--- NOTE | 2020-12-26 15:55 | EDM.PDOC ---
ED HPI GENERAL MEDICAL PROBLEM - General Chief Complaint: Cardiovascular Problem Stated Complaint: SWOLLEN LEG SENT BY [facility] Time Seen by Provider: 12/26/20 14:01 Source of Information: Reports: Patient, RN Notes Reviewed - History of Present Illness INITIAL COMMENTS - FREE TEXT/NARRATIVE: 60 yr old male sent over from [facility] for evaluation of leg swelling and edema. He does have hx of obesity, fluid retention. He is supposed to be taking furosemide 20 mg bid but states he is "often not taking the 2nd dose because he gets up too late. No chest pain. He does get short of breath with exertion. He is a prior smoker. Quit about 1 yr ago. No recent cough, fever or chills. Has developed some vesicles L leg that drained earlier today. Left Leg Pain Score (Numeric/FACES): 10 - Related Data Allergies Allergy/AdvReac Type Severity Reaction Status Date / Time amoxicillin trihydrate Allergy Hives Verified 12/26/20 13:41 [From Augmentin] bee venom protein (honey bee) Allergy Swelling Verified 12/26/20 13:41 potassium clavulanate Allergy Hives Verified 12/26/20 13:41 [From Augmentin] Home Meds: Home Meds Aspirin 81 mg PO DAILY 02/05/17 [History] Furosemide 20 mg PO BID 02/05/17 [History] Pramipexole Di-HCl [Mirapex] 1 mg PO BEDTIME 02/05/17 [History] DULoxetine [Cymbalta] 60 mg PO BID 06/19/18 [History] Gabapentin [Neurontin] 200 mg PO TID 06/19/18 [History] Warfarin Sodium [Coumadin] 7.5 mg PO ASDIRECTED 06/19/18 [History] buPROPion [buPROPion XL] 150 mg PO DAILY 06/19/18 [History] Metoprolol Succinate [Toprol XL] 25 mg PO BID 10/04/20 [History] Potassium Chloride 20 meq PO DAILY 10/04/20 [History] Doxycycline [Vibra-Tabs] 200 mg PO Q12HR #40 tab 12/26/20 [Rx] Multivitamin 1 tab PO DAILY 12/26/20 [History] Mupirocin Cream [Bactroban Crm] 1 gm TOP BID PRN 12/26/20 [History] Exira-3/DHA/Epa/Fish Oil [Exira-3 Fish Oil 1,000 MG Sfgl] 1,000 mg PO ASDIRECTED 12/26/20 [History] Pantoprazole Sodium [Protonix] 40 mg PO DAILY 12/26/20 [History] Warfarin [Coumadin] 5 mg PO MOWEFR 12/26/20 [History] Past Medical History HEENT History: Reports: Impaired Vision Cardiovascular History: Reports: Blood Clots/VTE/DVT, High Cholesterol, Hypertension Respiratory History: Reports: Sleep Apnea Gastrointestinal History: Reports: GERD Other Gastrointestinal History: heartburn Genitourinary History: Reports: Urinary Incontinence Other Genitourinary History: urgency, frequency Musculoskeletal History: Reports: Osteoarthritis Neurological History: Reports: Other (See Below) Other Neuro History: headache Psychiatric History: Reports: Anxiety, Depression Endocrine/Metabolic History: Reports: Obesity/BMI 30+ - Past Surgical History GI Surgical History: Reports: Colonoscopy Musculoskeletal Surgical History: Reports: Knee Replacement Social & Family History - Family History Family Medical History: No Pertinent Family History Cardiac: Reports: High Cholesterol, Hypertension Neurological: Reports: CVA, Dementia - Tobacco Use Tobacco Use Status *Q: Former Tobacco User Used Tobacco, but Quit: Yes Month/Year Tobacco Last Used: 12/2019 - Caffeine Use Caffeine Use: Reports: Soda, Tea - Recreational Drug Use Recreational Drug Use: No - Living Situation & Occupation Living situation: Reports: , with Spouse Occupation: Unemployed ED ROS GENERAL - Review of Systems Review Of Systems: See Below Constitutional: Denies: Fever, Chills, Diaphoresis HEENT: Reports: No Symptoms Respiratory: Reports: Shortness of Breath. Denies: Cough Cardiovascular: Denies: Chest Pain GI/Abdominal: Denies: Abdominal Pain, Nausea, Vomiting Musculoskeletal: Reports: Leg Pain (mild bilat) Skin: Reports: Erythema (bilat lower legs, worse than ususal) Neurological: Denies: Difficulty Walking, Weakness ED EXAM, GENERAL - Physical Exam Exam: See Below General Appearance: Alert, No Apparent Distress Throat/Mouth: Normal Inspection Head: Atraumatic Neck: Supple Respiratory/Chest: No Respiratory Distress, Lungs Clear, Normal Breath Sounds. No: Rhonchi, Wheezing Cardiovascular: Regular Rate, Rhythm GI/Abdominal: Non-Tender, Other (markedly obese) Back Exam: No: CVA Tenderness (L), CVA Tenderness (R) Extremities: Pedal Edema (moderate bilat), Redness (bilat lower legs), Other (sm all area of prior vesiculation L lateral lower leg). No: Leg Pain Neurological: No Motor/Sensory Deficits Skin Exam: Warm, Dry #1 Interpretation EKG Date: 12/26/20 Rhythm: NSR [place]: Normal P-Wave: Present QRS: Normal ST-T: Normal QT: Normal Course - Vital Signs Last Recorded V/S: Last Vital Signs Temp 98.2 F 12/26/20 13:41 Pulse 74 12/26/20 13:41 Resp 17 12/26/20 13:41 BP 126/81 12/26/20 13:41 Pulse Ox 99 12/26/20 13:41 - Orders/Labs/Meds Orders: Active Orders 24 hr Category Date Time Status EKG 12 Lead [EKG Documentation Completion] [RC] STAT Care 12/26/20 14:02 Active Peripheral IV Care [RC] . DIRECTED Care 12/26/20 14:02 Active BLOOD GAS ARTERIAL [BG] Stat Lab 12/26/20 14:09 Ordered CULTURE WOUND [RM] Stat Lab 12/26/20 16:23 Received Sodium Chloride 0.9% [Saline Flush] Med 12/26/20 14:01 Active 10 ml FLUSH ASDIRECTED PRN Peripheral IV Insertion Adult [OM.PC] Stat Oth 12/26/20 14:02 Ordered Medication Orders Sodium Chloride (Saline Flush) 10 ml FLUSH ASDIRECTED PRN PRN Reason: Keep Vein Open Last Admin: 12/26/20 15:07 Dose: 10 ml Documented by: XOCHITL Labs: Laboratory Tests 12/26/20 12/26/20 12/26/20 Range/Units 14:32 14:32 14:32 WBC 6.84 (4.23-9.07) K/mm3 RBC 4.95 (4.63-6.08) M/mm3 Hgb 13.0 L (13.7-17.5) gm/dl Hct 44.5 (40.1-51.0) % MCV 89.9 D (79.0-92.2) fl MCH 26.3 (25.7-32.2) pg MCHC 29.2 L (32.2-35.5) g/dl RDW Std Deviation 51.7 H (35.1-43.9) fL Plt Count 253 (163-337) K/mm3 MPV 11.2 (9.4-12.3) fl Neut % (Auto) 74.4 H (34.0-67.9) % Lymph % (Auto) 15.2 L (21.8-53.1) % [place] % (Auto) 6.6 (5.3-12.2) % Eos % (Auto) 3.2 (0.8-7.0) Baso % (Auto) 0.3 (0.1-1.2) % Neut # (Auto) 5.09 (1.78-5.38) K/mm3 Lymph # (Auto) 1.04 L (1.32-3.57) K/mm3 [place] # (Auto) 0.45 (0.30-0.82) K/mm3 Eos # (Auto) 0.22 (0.04-0.54) K/mm3 Baso # (Auto) 0.02 (0.01-0.08) K/mm3 Manual Slide Review Abnormal smear PT (9.7-12.0) SECONDS INR Sodium 143 (136-145) mEq/L Potassium 4.3 (3.5-5.1) mEq/L Chloride 103 (98-107) mEq/L Carbon Dioxide 35 H (21-32) mEq/L Anion Gap 9.3 (5-15) BUN 16 (7-18) mg/dL Creatinine 1.2 (0.7-1.3) mg/dL Est Cr Clr Drug Dosing 54.13 mL/min Estimated GFR (MDRD) > 60 (>60) mL/min BUN/Creatinine Ratio 13.3 L (14-18) Glucose 144 H (80-115) mg/dL Calcium 8.6 (8.5-10.1) mg/dL Total Bilirubin 0.3 (0.2-1.0) mg/dL AST 17 (15-37) U/L ALT 33 (16-63) U/L Alkaline Phosphatase 82 (46-116) U/L Troponin I 0.030 (0.00-0.056) ng/mL NT-Pro-B Natriuret Pep 492 H (0-125) pg/mL Total Protein 7.1 (6.4-8.2) g/dl Albumin 2.9 L (3.4-5.0) g/dl Globulin 4.2 gm/dL Albumin/Globulin Ratio 0.7 L (1-2) SARS-CoV-2 RNA (JOHN) (NEGATIVE) 12/26/20 12/26/20 Range/Units 14:32 15:26 WBC (4.23-9.07) K/mm3 RBC (4.63-6.08) M/mm3 Hgb (13.7-17.5) gm/dl Hct (40.1-51.0) % MCV (79.0-92.2) fl MCH (25.7-32.2) pg MCHC (32.2-35.5) g/dl RDW Std Deviation (35.1-43.9) fL Plt Count (163-337) K/mm3 MPV (9.4-12.3) fl Neut % (Auto) (34.0-67.9) % Lymph % (Auto) (21.8-53.1) % [place] % (Auto) (5.3-12.2) % Eos % (Auto) (0.8-7.0) Baso % (Auto) (0.1-1.2) % Neut # (Auto) (1.78-5.38) K/mm3 Lymph # (Auto) (1.32-3.57) K/mm3 [place] # (Auto) (0.30-0.82) K/mm3 Eos # (Auto) (0.04-0.54) K/mm3 Baso # (Auto) (0.01-0.08) K/mm3 Manual Slide Review PT 57.6 H* D (9.7-12.0) SECONDS INR 5.57 H* Sodium (136-145) mEq/L Potassium (3.5-5.1) mEq/L Chloride (98-107) mEq/L Carbon Dioxide (21-32) mEq/L Anion Gap (5-15) BUN (7-18) mg/dL Creatinine (0.7-1.3) mg/dL Est Cr Clr Drug Dosing mL/min Estimated GFR (MDRD) (>60) mL/min BUN/Creatinine Ratio (14-18) Glucose (80-115) mg/dL Calcium (8.5-10.1) mg/dL Total Bilirubin (0.2-1.0) mg/dL AST (15-37) U/L ALT (16-63) U/L Alkaline Phosphatase (46-116) U/L Troponin I (0.00-0.056) ng/mL NT-Pro-B Natriuret Pep (0-125) pg/mL Total Protein (6.4-8.2) g/dl Albumin (3.4-5.0) g/dl Globulin gm/dL Albumin/Globulin Ratio (1-2) SARS-CoV-2 RNA (JOHN) Negative (NEGATIVE) Meds: Medications Generic Name Dose Route Start Last Admin Trade Name Freq PRN Reason Stop Dose Admin Sodium Chloride 10 ml 12/26/20 14:01 12/26/20 15:07 Saline Flush FLUSH 10 ml ASDIRECTED PRN Administration Keep Vein Open Discontinued Medications Generic Name Dose Route Start Last Admin Trade Name Freq PRN Reason Stop Dose Admin Furosemide 40 mg 12/26/20 14:03 12/26/20 15:04 Lasix IVPUSH 12/26/20 14:04 40 mg ONETIME ONE Administration Ceftriaxone Sodium 2 gm/ 100 mls @ 200 mls/hr 12/26/20 15:47 12/26/20 16:22 Sodium Chloride IV 12/26/20 16:16 200 mls/hr ONETIME ONE Administration - Re-Assessments/Exams Free Text/Narrative Re-Assessment/Exam: 12/26/20 17:29 Sats 89 to 92 % room air once we changed from finger to ear probe. CXR shows very mild pul vasc congestion. Pro BNP only very mildly elevated. His wt is re portedly up about 12 lbs from baseline. He is markedly obese with fluid retention on top of it, maybe leg cellulitis, may just vascular insufficiency. He openly admits to not taking his 2nd dose 2mg furosemide most days so has only been getting 20 mg per day. Will have him start taking 40 mg Q AM, 20 mg in the afternoon until he looses 10 to 12 lbs fluid and than go to just 40 mg Q AM. He has a follow up clinic appt. next Wednesday. Have also prescribed Doxycycline 200 mg bid for 10 days for probable component of lower leg cellulitis. Departure - Departure Time of Disposition: 16:56 Disposition: Home, Self-Care 01 Condition: Fair Clinical Impression: Fluid retention in legs, Cellulitis Prescriptions: Doxycycline [Vibra-Tabs] 200 mg PO Q12HR #40 tab Instructions: Cellulitis, Adult, [id number] Referrals: Miguel Bee MD [Primary Care Provider] - Forms: ED Department Discharge Additional Instructions: Lasix or furosemide 40 mg q AM, 20 mg early afternoon until you loose 10 to 12 pounds from where you are right now. Than continue 40 mg q AM until otherwise directed. Doxycycline 200 mg twice daily for 10 days or until gone. Prescription has been sent to [facility]. See Dr Lozano next Wednesday as planned. Return to ED as needed. Sepsis Event Note (ED) - Evaluation Sepsis Screening Result: No Definite Risk - Focused Exam Vital Signs: Vital Signs Temp Pulse Resp BP Pulse Ox 12/26/20 13:41 98.2 F 74 17 126/81 99 - My Orders Last 24 Hours: My Active Orders 12/26/20 14:01 Sodium Chloride 0.9% [Saline Flush] 10 ml FLUSH ASDIRECTED PRN 12/26/20 14:02 EKG 12 Lead [EKG Documentation Completion] [RC] STAT Peripheral IV Care [RC] . DIRECTED Peripheral IV Insertion Adult [OM.PC] Stat 12/26/20 14:09 BLOOD GAS ARTERIAL [BG] Stat 12/26/20 16:23 CULTURE WOUND [RM] Stat - Assessment/Plan Last 24 Hours: My Active Orders 12/26/20 14:01 Sodium Chloride 0.9% [Saline Flush] 10 ml FLUSH ASDIRECTED PRN 12/26/20 14:02 EKG 12 Lead [EKG Documentation Completion] [RC] STAT Peripheral IV Care [RC] . DIRECTED Peripheral IV Insertion Adult [OM.PC] Stat 12/26/20 14:09 BLOOD GAS ARTERIAL [BG] Stat 12/26/20 16:23 CULTURE WOUND [RM] Stat
[2020-12-26 17:38] VITALS: BP 121/77; PULSE 78
== END 2020-12-26 17:25 | disposition home or self-care (01) ==
LOC: JD.ED 13:22
DX: L03.116 Cellulitis of left lower limb (principal); R60.0 Localized edema; I10 Essential (primary) hypertension; M19.90 Unspecified osteoarthritis, unspecified site; K21.9 Gastro-esophageal reflux disease without esophagitis; E66.9 Obesity, unspecified; Z68.42 Body mass index [BMI] 45.0-49.9, adult; Z88.0 Allergy status to penicillin; Z91.030 Bee allergy status; Z88.1 Allergy status to other antibiotic agents; Z79.82 Long term (current) use of aspirin; Z79.899 Other long term (current) drug therapy; Z79.01 Long term (current) use of anticoagulants; Z86.718 Personal history of other venous thrombosis and embolism; Z87.891 Personal history of nicotine dependence; Z20.822 Contact with and (suspected) exposure to COVID-19; R06.02 Shortness of breath
CPT/HCPCS: 36415; 71045; 80053; 83880; 84484; 85025; 85610; 87070; 87077; 87088; 87184; 87186; 93005; 96365; 96375; 99284; J0696; J1940; U0002; 93010

== ENCOUNTER 2020-12-30 16:22 | Emergency (ER) | payer MEDICARE ==
--- NOTE | 2020-12-30 18:09 | EDM.PDOC ---
ED HPI GENERAL MEDICAL PROBLEM - General Chief Complaint: Lower Extremity Injury/Pain Stated Complaint: LT LEG INFECTION Time Seen by Provider: 12/30/20 18:06 Source of Information: Reports: Patient, Family (spouse) History Limitations: Reports: No Limitations - History of Present Illness INITIAL COMMENTS - FREE TEXT/NARRATIVE: 60-year-old male been sent over to the hospital ED for evaluation of suppose it failed outpatient management of his venous stasis ulcerations of both lower extremities. Patient is extremely overweight with severe chronic dependent edema bilaterally which is caused poor blood flow to his skin with resultant ulcerations and secondary wound infections. He was seen through the ED by Dr. Richardson on 26 December with a total white count of 6.84 and a neutrophil count of 74.4%. Hemoglobin is 13.0 with hematocrit of 44.5. His chemistry was fine other than elevated bicarb at 35 due to CO2 retention. His renal function is normal with a GFR greater than 60. Glucose was elevated at 144 the patient is not known to be diabetic. BNP was slightly elevated at 492. PT was 57.6 with an INR of 5.57 and he is on Coumadin daily. As far as I can ascertain the Coumadin dosage was not discontinued for a few days or changed. Changes to his Lasix was 40 mg in the morning and 20 mg in the afternoon for which she is often known to be noncompliant with. He needs to lose a good 10 to 20 pounds of fluid from his lower extremities for the wounds to have a chance to heal. He was prescribed doxycycline 200 mg twice daily for 10 days for lower extremity c ellulitis. Wound cultures gathered at that time are growing out 4 different organisms. One is beta Streptococcus group A which is sensitive to Rocephin and penicillin and to tetracycline and thus doxycycline. Second organism was Enterobacter Hormaechei organism is sensitive to for pain ertapenem and Bactrim. Klebsiella oxytocin is sensitive to all antibiotics incl uding doxycycline which the patient is taking. It therefore appears that the most suitable alternative to treat this patient outside of the hospital would be adding Bactrim double strength to his treatment plan with doxycycline twice daily for a minimum of 14 days elevating his legs as much as possible arranging for home care to come and see him on a daily basis and change the dressings on his left lower extremity with weekly visits to his physician. Onset: Unknown/Unsure (Legs have been red sore with sores on them for many weeks probably 6 to 8 weeks. More recently the lesions on the left lower extremity started to open up and ooze or drain both a combination of purulent and serous drainage.) Duration: Chronic, Getting Worse Location: Reports: Lower Extremity, Left, Lower Extremity, Right Quality: Reports: Ache, Burning, Other (Draining wounds left lower extremity) Severity: Moderate Improves with: Reports: None Worsens with: Reports: Other Context: Reports: Other (Primary problem is noncompliance with diuretics in the past. He has chronic severe dependent venous insufficiency with venous stasis dermatitis which is now causing skin breakdown due to lack of nutrition to the skin with formation of ulcers which are becoming secondarily infected.). Denies: Activity (Standing for too long.), Exercise, Lifting, Sick Contact, Trauma Associated Symptoms: Reports: No Other Symptoms (She has no signs or symptoms of a systemic), Shortness of Breath. 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) Left Lower Leg Pain Score (Numeric/FACES): 8 - Related Data Allergies Allergy/AdvReac Type Severity Reaction Status Date / Time amoxicillin trihydrate Allergy Hives Verified 12/30/20 16:39 [From Augmentin] bee venom protein (honey bee) Allergy Swelling Verified 12/30/20 16:39 potassium clavulanate Allergy Hives Verified 12/30/20 16:39 [From Augmentin] Home Meds: Home Meds Aspirin 81 mg PO DAILY 02/05/17 [History] Furosemide 20 mg PO BID 02/05/17 [History] Pramipexole Di-HCl [Mirapex] 1 mg PO BEDTIME 02/05/17 [History] DULoxetine [Cymbalta] 60 mg PO BID 06/19/18 [History] Gabapentin [Neurontin] 200 mg PO TID 06/19/18 [History] Warfarin Sodium [Coumadin] 7.5 mg PO ASDIRECTED 06/19/18 [History] buPROPion [buPROPion XL] 150 mg PO DAILY 06/19/18 [History] Metoprolol Succinate [Toprol XL] 25 mg PO BID 10/04/20 [History] Potassium Chloride 20 meq PO DAILY 10/04/20 [History] Doxycycline [Vibra-Tabs] 200 mg PO Q12HR #40 tab 12/26/20 [Rx] Multivitamin 1 tab PO DAILY 12/26/20 [History] Mupirocin Cream [Bactroban Crm] 1 gm TOP BID PRN 12/26/20 [History] Rodessa-3/DHA/Epa/Fish Oil [Rodessa-3 Fish Oil 1,000 MG Sfgl] 1,000 mg PO ASDIRECTED 12/26/20 [History] Pantoprazole Sodium [Protonix] 40 mg PO DAILY 12/26/20 [History] Warfarin [Coumadin] 5 mg PO MOWEFR 12/26/20 [History] Doxycycline [Vibra-Tabs] 100 mg PO Q12HR #20 tab 12/30/20 [Rx] Sulfamethoxazole/Trimethoprim [Bactrim Ds Tablet] 1 each PO BID #20 tablet 12/30/20 [Rx] Past Medical History HEENT History: Reports: Impaired Vision Cardiovascular History: Reports: Blood Clots/VTE/DVT, High Cholesterol, Hypertension Respiratory History: Reports: Sleep Apnea Gastrointestinal History: Reports: GERD Other Gastrointestinal History: heartburn Genitourinary History: Reports: Urinary Incontinence Other Genitourinary History: urgency, frequency Musculoskeletal History: Reports: Osteoarthritis Neurological History: Reports: Other (See Below) Other Neuro History: headache Psychiatric History: Reports: Anxiety, Depression Endocrine/Metabolic History: Reports: Obesity/BMI 30+ - Past Surgical History GI Surgical History: Reports: Colonoscopy Musculoskeletal Surgical History: Reports: Knee Replacement Social & Family History - Family History Family Medical History: No Pertinent Family History Cardiac: Reports: High Cholesterol, Hypertension Neurological: Reports: CVA, Dementia - Caffeine Use Caffeine Use: Reports: Soda, Tea - Living Situation & Occupation Living situation: Reports: , with Spouse Occupation: Unemployed Review of Systems - Review of Systems Review Of Systems: See Below Constitutional: Denies: Chills, Diaphoresis, Weakness, Other Eyes: Reports: No Symptoms Ears: Reports: No Symptoms Nose: Reports: No Symptoms Mouth/Throat: Reports: No Symptoms, Loose Teeth Respiratory: Reports: Shortness of Breath, Wheezing (On minimal exertion.), Cough (Nonproductive cough at times.). Denies: Pleuritic Chest Pain, Sputum, Hemoptysis, Other Cardiovascular: Reports: Edema (Severe dependent edema 4+). Denies: Chest Pain, Irregular Heart Rate ( past the knees bilaterally.), Lightheadedness, Palpitations, Syncope, Other GI/Abdominal: Reports: No Symptoms Genitourinary: Reports: Other (Emil frequency) Musculoskeletal: Reports: Back Pain, Joint Pain (He sips neck and shoulders at times) Skin: Reports: Bruising Neurological: Reports: No Symptoms (This is easily as he is on Coumadin because of previous DVTs in both lower extremities) Psychiatric: Reports: No Symptoms ED EXAM, GENERAL - Physical Exam Exam: See Below Exam Limited By: No Limitations General Appearance: Alert, WD/WN, No Apparent Distress, Other (Patient has no signs or symptoms of systemic illness. Temperature is 36.2 degrees heart rate is 80 respiratory is 18 O2 sats of 91% on room air. His hands were cold to begin with giving us a fictitious number of 76. BP 141/80.) Eye Exam: Bilateral Eye: Normal Inspection (No scleral icterus no blepharal pallor), PERRL Respiratory/Chest: Lungs Clear, Normal Breath Sounds, Decreased Breath Sounds (Decreased air entry at lower 30% lung aranda bilaterally due to his size.) Cardiovascular: Regular Rate, Rhythm, No Gallop, No Murmur, No Rub. No: Normal Peripheral Pulses, No Edema Peripheral Pulses: 0: Posterior Tibial (L) (Pulses in his feet are identified be cause of overwhelming edema.), Posterior Tibial (R), Dorsalis Pedis (L), Dorsalis Pedis (R), 2+: Carotid (L), Carotid (R) GI/Abdominal: Soft, Non-Tender, Distended (Morbidly obese. Abdominal girth limits ability to palpate any solid organs.), Abnormal Bowel Sounds Back Exam: Other (Increased lordosis lumbar curvature) Extremities: Pedal Edema (Plus pitting edema both lower extremities up past the knees.), Other (Both lower extremities are erythematous and warm to palpation and tender a burning discomfort. He has open ulcerations to the left lower extremity which are oozing serous material at this time. They have been recently dressed at the clinic with Xeroform dressings and Laura. He has multiple pustules in the upper thighs bilaterally which are healing. There are also a few scattered on his abdominal wall.) Neurological: Alert, Oriented, CN II-XII Intact, Normal Cognition Psychiatric: Normal Affect, Normal Mood Skin Exam: Warm, Dry, Erythema (Of the lower extremities are very erythematous and warm to palpation compatible with cellulitis.), Increased Warmth (Both legs have increased warmth palpation and are tender to touch.), Other (Open ulcerations left lower extremity oozing serosanguineous material at this time.) Course - Vital Signs Last Recorded V/S: Last Vital Signs Temp 36.2 C 12/30/20 16:35 Pulse 80 12/30/20 16:35 Resp 18 12/30/20 16:35 BP 141/80 H 12/30/20 16:35 Pulse Ox 76 L 12/30/20 16:35 - Orders/Labs/Meds Labs: Laboratory Tests 12/30/20 12/30/20 12/30/20 Range/Units 18:21 18:21 18:21 WBC 7.75 (4.23-9.07) K/mm3 RBC 4.92 (4.63-6.08) M/mm3 Hgb 12.7 L (13.7-17.5) gm/dl Hct 44.1 (40.1-51.0) % MCV 89.6 (79.0-92.2) fl MCH 25.8 (25.7-32.2) pg MCHC 28.8 L (32.2-35.5) g/dl RDW Std Deviation 53.3 H (35.1-43.9) fL Plt Count 267 (163-337) K/mm3 MPV 11.2 (9.4-12.3) fl Neut % (Auto) 76.5 H (34.0-67.9) % Lymph % (Auto) 12.5 L (21.8-53.1) % [place] % (Auto) 7.4 (5.3-12.2) % Eos % (Auto) 3.2 (0.8-7.0) Baso % (Auto) 0.3 (0.1-1.2) % Neut # (Auto) 5.93 H (1.78-5.38) K/mm3 Lymph # (Auto) 0.97 L (1.32-3.57) K/mm3 [place] # (Auto) 0.57 (0.30-0.82) K/mm3 Eos # (Auto) 0.25 (0.04-0.54) K/mm3 Baso # (Auto) 0.02 (0.01-0.08) K/mm3 Manual Slide Review Abnormal smear PT 29.2 H D (9.7-12.0) SECONDS INR 2.78 Sodium 143 (136-145) mEq/L Potassium 4.4 (3.5-5.1) mEq/L Chloride 104 (98-107) mEq/L Carbon Dioxide 35 H (21-32) mEq/L Anion Gap 8.4 (5-15) BUN 30 H (7-18) mg/dL Creatinine 1.2 (0.7-1.3) mg/dL Est Cr Clr Drug Dosing 54.13 mL/min Estimated GFR (MDRD) > 60 (>60) mL/min BUN/Creatinine Ratio 25.0 H (14-18) Glucose 124 H (80-115) mg/dL Calcium 8.6 (8.5-10.1) mg/dL Total Bilirubin 0.3 (0.2-1.0) mg/dL AST 22 (15-37) U/L ALT 24 (16-63) U/L Alkaline Phosphatase 76 (46-116) U/L C-Reactive Protein (<1.0) mg/dL Total Protein 6.9 (6.4-8.2) g/dl Albumin 2.7 L (3.4-5.0) g/dl Globulin 4.2 gm/dL Albumin/Globulin Ratio 0.6 L (1-2) 12/30/20 Range/Units 18:21 WBC (4.23-9.07) K/mm3 RBC (4.63-6.08) M/mm3 Hgb (13.7-17.5) gm/dl Hct (40.1-51.0) % MCV (79.0-92.2) fl MCH (25.7-32.2) pg MCHC (32.2-35.5) g/dl RDW Std Deviation (35.1-43.9) fL Plt Count (163-337) K/mm3 MPV (9.4-12.3) fl Neut % (Auto) (34.0-67.9) % Lymph % (Auto) (21.8-53.1) % [place] % (Auto) (5.3-12.2) % Eos % (Auto) (0.8-7.0) Baso % (Auto) (0.1-1.2) % Neut # (Auto) (1.78-5.38) K/mm3 Lymph # (Auto) (1.32-3.57) K/mm3 [place] # (Auto) (0.30-0.82) K/mm3 Eos # (Auto) (0.04-0.54) K/mm3 Baso # (Auto) (0.01-0.08) K/mm3 Manual Slide Review PT (9.7-12.0) SECONDS INR Sodium (136-145) mEq/L Potassium (3.5-5.1) mEq/L Chloride (98-107) mEq/L Carbon Dioxide (21-32) mEq/L Anion Gap (5-15) BUN (7-18) mg/dL Creatinine (0.7-1.3) mg/dL Est Cr Clr Drug Dosing mL/min Estimated GFR (MDRD) (>60) mL/min BUN/Creatinine Ratio (14-18) Glucose (80-115) mg/dL Calcium (8.5-10.1) mg/dL Total Bilirubin (0.2-1.0) mg/dL AST (15-37) U/L ALT (16-63) U/L Alkaline Phosphatase (46-116) U/L C-Reactive Protein 2.4 H* (<1.0) mg/dL Total Protein (6.4-8.2) g/dl Albumin (3.4-5.0) g/dl Globulin gm/dL Albumin/Globulin Ratio (1-2) Meds: Medications Discontinued Medications Generic Name Dose Route Start Last Admin Trade Name Freq PRN Reason Stop Dose Admin Ceftriaxone Sodium 1 gm 12/30/20 18:20 12/30/20 19:12 Rocephin IM 12/30/20 18:21 1 gm ONETIME ONE Administration Lidocaine HCl Confirm 12/30/20 19:07 12/30/20 19:12 Xylocaine 1% Administered 12/30/20 19:08 10 ml Dose Administration 10 ml .ROUTE .STK-MED ONE - Radiology Interpretation Free Text/Narrative:: 60-year-old male presents to the ED at the request of his primary care provider stating that he is failed outpatient management. Patient is short and stocky with chronic venous stasis dermatitis of lower extremities for many years. He apparently is not a diabetic. He admits that he has been noncompliant with his Lasix medication. Recent visit to the ED increase his Lasix to 40 mg in the morning and 20 mg in the p.m. He was also started on doxycycline 100 mg twice daily of which she has finished 4 days of therapy and concern was for the lesions on his lower extremities to not be healing adequately. He denies any fever chills or systemic signs of illness and has a good appetite. Plan routine labs will be carried out including a repeat PT/INR since he is on Coumadin daily. At present there are no beds available in the hospital and therefore we will have to adopt a secondary plan of treatment as an outpatient. Many of of the antibiotics he would require to bring his infection under total control are by intravenous only. However there is a window of opportunity using Bactrim double strength and doxycycline 1 tablet of each twice daily that may clear this infection up as an outpatient. We will check on his labs today and come up with a treatment plan. He will receive Rocephin 1 g intramuscularly today. - Re-Assessments/Exams Free Text/Narrative Re-Assessment/Exam: 12/30/20 19:06 Labs reveal a normal white count at 7.75 with a slight left shift of 76.5% neutrophils. Hemoglobin is 12.7 with hematocrit of 44.1 and platelet count 267,000. PT is 29.2 with an INR of 2.78 today. Therefore no adjustments to his Coumadin dosage is required. Plan will be to continue doxycycline 100 mg twice daily for full 20 days I will provide 14 days worth of medication again today. Second medication will be Bactrim double strength 1 tablet twice daily for the next 10 days to help clear up infected lesions on both lower extremities worse on the left leg as compared to the right. He has just recently started 40 mg of Lasix in the morning and 20 mg in the p.m. and I will held add Aldactone 25 mg once daily in the morning to help prevent potassium depletion. We will send a note for home health care to see him in consultation and help with dressing changes as often as possible and to make sure the lesions are healing. These lesions are going to take several months to heal. The cohen is the patient does not develop any signs of sepsis secondary to infection in his lower extremities. The cohen is to reduce the edema which is at least 10 to 12 pounds in each lower extremity so that the skin can receive appropriate circulation and start to heal. Of note C-reactive protein today is 2.4. 12/30/20 19:31 have had a discussion with both the patient and his through the emergency room today and indicate that he is in need of home health care services. Patient's primary problem is severe chronic dependent edema with noncompliance with Lasix in the past. He needs to be on Lasix 40 mg in the morning and 20 mg in the p.m. ideally around 1400 hrs. Aldactone 25 mg in the morning to help with potassium sparing. He has 4 different organisms growing f rom his lesions on the left lower extremity. They are sensitive to a combination of doxycycline and Bactrim double strength. It is my suggest that he stays on Bactrim double strength 1 tablet twice daily for 10 days starting today and doxycycline 100 g twice daily for a total of 20 days of which she has completed the first 4 days of therapy. Lab work does not show any signs of systemic signs of infection with a normal white count at 6.8 and 7.2. The patient is on Coumadin and while he is on Bactrim double strength needs to be on 5 mg of Coumadin daily and not alternate with a 7.5 mg tablet Mondays and Sundays. After the Bactrim double strength is finished he may return to his normal Coumadin daily dosage. He would need to return to the hospital if he develops fever greater than 100.5 or severe chills, nausea and vomiting. And is going to need daily dressing changes to his left lower extremity which his is able to do but she is going to need some teaching and some supplies to help keep him out of the hospital at this time. He had Xeroform dressings applied to his wounds today I would be happy if they were dry dressings with no Xeroform since I dine is toxic to the healing ulcer wounds. Departure - Departure Time of Disposition: 19:08 Disposition: Home, Self-Care 01 Condition: Fair Clinical Impression: Bilateral cellulitis of lower leg, Infected stasis ulcer of left lower extremity - Discharge Information *PRESCRIPTION DRUG MONITORING PROGRAM REVIEWED*: Not Applicable *COPY OF PRESCRIPTION DRUG MONITORING REPORT IN PATIENT ESTHER: Not Applicable Prescriptions: Sulfamethoxazole/Trimethoprim [Bactrim Ds Tablet] 1 each PO BID #20 tablet Doxycycline [Vibra-Tabs] 100 mg PO Q12HR #20 tab Instructions: Cellulitis, Adult, [id number] Referrals: Miguel eBe MD [Primary Care Provider] - Forms: ED Department Discharge Additional Instructions: Evaluation in the emergency room today in regards to cellulitis or infection under the skin on both lower extremities of your legs. Open leg ulcers on the left lower extremity are growing out 4 different kinds of bacteria with making it difficult to treat you with appropriate antibiotic therapy. You need to continue doxycycline 100 mg by mouth twice daily for full [address] Richardson gave you prescription for 10 days supply and I have written a prescription for another 10-day supply that you are to fill after finishing the first prescription. New antibiotic will be Bactrim double strength 1 tablet twice daily for the next 10 days to also clear up wound infection both lower extremities. In the meantime you are to discontinue your potassium supplements while taking the Bactrim double strength tablet for 10 days. Take new medication Aldactone 25 mg once daily in the morning with 40 mg of Lasix in the morning to help reduce swelling in both lower extremities which is the root of all the problems. The more swelling the lower extremities have the less blood supply is being supplied to the skin with skin breakdown and ulcer formation. Elevate the feet as much as possible throughout the day. You also need to continue 20 mg of Lasix in the afternoon about 2:00 daily. We will arrange for home health care nurse to see you to help with dressing changes as soon as able. Follow-up with your primary care physician be should be done on a weekly basis until we get the ulcers healed up. You would need to return to the hospital if you develop overwhelming high fever of greater than 101 degrees or severe chills or the shakes. The medication change to be made is to your Coumadin dose. Both of the antibiotics will increase your Coumadin dose time. Therefore for the next 10 days you need to reduce your Coumadin tablet to 5 mg once daily for the next 10 days and not start the 7.5 mg tablet as you had been doing until after finishing the first 10 days of Bactrim double strength tablets. Sepsis Event Note (ED) - Evaluation Sepsis Screening Result: No Definite Risk - Focused Exam Vital Signs: Vital Signs Temp Pulse Resp BP Pulse Ox 12/30/20 16:35 36.2 C 80 18 141/80 H 76 L
[2020-12-30] MEDS ORDERED: cefTRIAXone 1 GM Vial IM ONE (18:20)
[2020-12-30] MEDS ORDERED: Lidocaine 1% 10 ML MDV ONE (19:07)
[2020-12-30 19:40] VITALS: BP 125/85; PULSE 92
== END 2020-12-30 19:37 | disposition home or self-care (01) ==
LOC: JD.ED 16:22
DX: I83.028 Varicose veins of left lower extremity with ulcer other part of lower leg (principal); L97.829 Non-pressure chronic ulcer of other part of left lower leg with unspecified severity; L03.115 Cellulitis of right lower limb; L03.116 Cellulitis of left lower limb; I10 Essential (primary) hypertension; K21.9 Gastro-esophageal reflux disease without esophagitis; M19.90 Unspecified osteoarthritis, unspecified site; E66.01 Morbid (severe) obesity due to excess calories; Z68.42 Body mass index [BMI] 45.0-49.9, adult; Z88.0 Allergy status to penicillin; Z88.1 Allergy status to other antibiotic agents; Z91.030 Bee allergy status; Z79.82 Long term (current) use of aspirin; Z79.899 Other long term (current) drug therapy
CPT/HCPCS: 36415; 80053; 85025; 85610; 86140; 96372; 99283; J0696; 99284

== ENCOUNTER 2021-08-09 09:49 | Emergency (ER) | payer MEDICARE ==
[2021-08-09 10:40] VITALS: BP 144/66; PULSE 92
--- NOTE | 2021-08-09 11:52 | EDM.PDOC ---
ED HPI GENERAL MEDICAL PROBLEM - General Chief Complaint: Respiratory Problem Stated Complaint: BLOOD IN STOOLS/SOB Time Seen by Provider: 08/09/21 11:13 Source of Information: Reports: Patient, RN Notes Reviewed History Limitations: Reports: No Limitations - History of Present Illness INITIAL COMMENTS - FREE TEXT/NARRATIVE: Patient comes in with bright red blood per rectum, notes that after having a bowel movement. He is not noted any black stools or tarry stools however has had constipation. He said increasing abdominal distention he does have an umbilical hernia that does seem to be reducible however he has been trying to get that fixed however he has had a difficult time getting preop evaluation since he has been in diagnosed with Covid and/or pneumonia and requiring hospitalization in [facility]. Not having any fevers or chills cough productive discolored phlegm, does have shortness of breath is on chronic oxygen at 2 L his appetite is okay some congestion and runny nose no sore throat no loss of taste or smell has had a colonoscopy within the 5-year timeframe and is not described any complications risk for screening. No burning pain or blood in the urine. Does feel little lightheaded. Got a lot of chronic issues including requiring oxygen therapy he does look having a severe elevation of his BMI, lower extremity swelling, joint pains. Worsens with: Reports: None - Related Data Allergies Allergy/AdvReac Type Severity Reaction Status Date / Time amoxicillin trihydrate Allergy Hives Verified 08/09/21 10:40 [From Augmentin] bee venom protein (honey bee) Allergy Swelling Verified 08/09/21 10:40 potassium clavulanate Allergy Hives Verified 08/09/21 10:40 [From Augmentin] Home Meds: Home Meds Aspirin 81 mg PO DAILY 02/05/17 [History] Furosemide 20 mg PO BID 02/05/17 [History] Pramipexole Di-HCl [Mirapex] 1 mg PO BEDTIME 02/05/17 [History] DULoxetine [Cymbalta] 60 mg PO BID 06/19/18 [History] Gabapentin [Neurontin] 200 mg PO TID 06/19/18 [History] Warfarin Sodium [Coumadin] 7.5 mg PO ASDIRECTED 06/19/18 [History] buPROPion [buPROPion XL] 150 mg PO DAILY 06/19/18 [History] Metoprolol Succinate [Toprol XL] 25 mg PO BID 10/04/20 [History] Potassium Chloride 20 meq PO DAILY 10/04/20 [History] Doxycycline [Vibra-Tabs] 200 mg PO Q12HR #40 tab 12/26/20 [Rx] Multivitamin 1 tab PO DAILY 12/26/20 [History] Mupirocin Cream [Bactroban Crm] 1 gm TOP BID PRN 12/26/20 [History] [place]-3/DHA/Epa/Fish Oil [[place]-3 Fish Oil 1,000 MG Sfgl] 1,000 mg PO ASDIRECTED 12/26/20 [History] Pantoprazole Sodium [Protonix] 40 mg PO DAILY 12/26/20 [History] Warfarin [Coumadin] 5 mg PO MOWEFR 12/26/20 [History] Doxycycline [Vibra-Tabs] 100 mg PO Q12HR #20 tab 12/30/20 [Rx] Sulfamethoxazole/Trimethoprim [Bactrim Ds Tablet] 1 each PO BID #20 tablet 12/30/20 [Rx] Hydrocortisone Acetate [Anusol-Hc] 25 mg RC BID #14 supp.rect 08/09/21 [Rx] Past Medical History HEENT History: Reports: Impaired Vision Cardiovascular History: Reports: Blood Clots/VTE/DVT, High Cholesterol, Hypertension Respiratory History: Reports: Sleep Apnea Gastrointestinal History: Reports: GERD Other Gastrointestinal History: heartburn Genitourinary History: Reports: Urinary Incontinence Other Genitourinary History: urgency, frequency Musculoskeletal History: Reports: Osteoarthritis Neurological History: Reports: Other (See Below) Other Neuro History: headache Psychiatric History: Reports: Anxiety, Depression Endocrine/Metabolic History: Reports: Obesity/BMI 30+ - Past Surgical History GI Surgical History: Reports: Colonoscopy Musculoskeletal Surgical History: Reports: Knee Replacement Social & Family History - Family History Family Medical History: No Pertinent Family History Cardiac: Reports: High Cholesterol, Hypertension Neurological: Reports: CVA, Dementia - Tobacco Use Tobacco Use Status *Q: Unknown Ever Used Tobacco - Caffeine Use Caffeine Use: Reports: Soda, Tea - Living Situation & Occupation Living situation: Reports: , with Spouse Occupation: Unemployed ED ROS GENERAL - Review of Systems Review Of Systems: See Below Constitutional: Reports: No Symptoms. Denies: Chills, Diaphoresis HEENT: Denies: Vision Change Respiratory: Reports: Shortness of Breath, Cough Cardiovascular: Reports: Dyspnea on Exertion, PND. Denies: Chest Pain Endocrine: Reports: Fatigue GI/Abdominal: Reports: Abdominal Pain, Bloody Stool, Distension. Denies: Hematemesis, Hematochezia, Melena, Nausea, Vomiting : Denies: Dysuria, Frequency, Hematuria Musculoskeletal: Denies: Muscle Pain Neurological: Reports: No Symptoms Psychiatric: Reports: No Symptoms ED EXAM, GENERAL - Physical Exam Exam: See Below Exam Limited By: No Limitations General Appearance: Alert, WD/WN, Mild Distress Eye Exam: Bilateral Eye: PERRL Throat/Mouth: Normal Inspection, Normal Oropharynx Respiratory/Chest: Respiratory Distress, Decreased Breath Sounds. No: Rales, Rhonchi Cardiovascular: Normal Peripheral Pulses, Regular Rate, Rhythm GI/Abdominal: Normal Bowel Sounds, Distended, Hernia. No: Rigid, Rebound, Abnormal Bowel Sounds Back Exam: No: CVA Tenderness (R) Extremities: Pedal Edema, Leg Pain, Limited Range of Motion Neurological: Alert, Oriented, CN II-XII Intact Psychiatric: Anxious #1 Interpretation EKG Date: 08/09/21 EKG Interpretation Comments: I reviewed the EKG showing sinus rhythm rate of 80 MD 171 QRS is 89 QT corrected 417 abnormal R wave progression otherwise no acute findings. Course - Vital Signs Text/Narrative:: Patient with multiple complaints mainly here for your bright red blood per rectum. Has had increasing abdominal distention some abdominal pain but he also has a umbilical hernia that is yet to be repaired it does seem supple no nausea or vomiting. Stool is more constipated and blood afterwards. Belly pain is generalized but more on the umbilical hernia nothing that radiates to the back no change in position seems to help will do a CT scan to rule out intra- abdominal obstruction, incarcerated hernia, diverticulitis, rule out for anemia, he does have chronic lung disease anticipate he may benefit from CT chest as he does appear to be easily high hypoxic/even with oxygen. Lot of complex medical issues. We will need to review old records. Last Recorded V/S: Last Vital Signs Temp 98.5 F 08/09/21 10:37 Pulse 92 08/09/21 10:37 Resp 22 H 08/09/21 10:37 BP 144/66 H 08/09/21 10:37 Pulse Ox 94 L 08/09/21 10:37 - Orders/Labs/Meds Orders: Active Orders 24 hr Category Date Time Status Peripheral IV Care [RC] . DIRECTED Care 08/09/21 11:54 Active PATIENT RETYPE [BBK] Routine Lab 08/09/21 16:28 Ordered Sodium Chloride 0.9% [Saline Flush] Med 08/09/21 11:54 Active 10 ml FLUSH ASDIRECTED PRN Peripheral IV Insertion Adult [OM.PC] Stat Oth 08/09/21 11:53 Ordered EKG 12 Lead [EK] Stat Ther 08/09/21 11:53 Ordered Medication Orders Sodium Chloride (Sodium Chloride 0.9% 10 Ml Syringe) 10 ml FLUSH ASDIRECTED PRN PRN Reason: Keep Vein Open Labs: Laboratory Tests 08/09/21 08/09/21 08/09/21 Range/Units 13:45 13:45 13:45 WBC 13.04 H (4.23-9.07) K/mm3 RBC 4.32 L (4.63-6.08) M/mm3 Hgb 12.7 L (13.7-17.5) gm/dl Hct 42.6 (40.1-51.0) % MCV 98.6 H D (79.0-92.2) fl MCH 29.4 (25.7-32.2) pg MCHC 29.8 L (32.2-35.5) g/dl RDW Std Deviation 47.2 H (35.1-43.9) fL Plt Count 196 (163-337) K/mm3 MPV 11.3 (9.4-12.3) fl Neut % (Auto) 85.9 H (34.0-67.9) % Lymph % (Auto) 7.4 L (21.8-53.1) % [place] % (Auto) 4.8 L (5.3-12.2) % Eos % (Auto) 1.5 (0.8-7.0) Baso % (Auto) 0.2 (0.1-1.2) % Neut # (Auto) 11.21 H (1.78-5.38) K/mm3 Lymph # (Auto) 0.96 L (1.32-3.57) K/mm3 [place] # (Auto) 0.63 (0.30-0.82) K/mm3 Eos # (Auto) 0.19 (0.04-0.54) K/mm3 Baso # (Auto) 0.03 (0.01-0.08) K/mm3 PT 24.9 H (9.7-12.0) SECONDS INR 2.32 Sodium 137 (136-145) mEq/L Potassium 4.2 (3.5-5.1) mEq/L Chloride 95 L (98-107) mEq/L Carbon Dioxide 40 H (21-32) mEq/L Anion Gap 6.2 (5-15) BUN 24 H (7-18) mg/dL Creatinine 1.1 (0.7-1.3) mg/dL Est Cr Clr Drug Dosing TNP Estimated GFR (MDRD) > 60 (>60) mL/min BUN/Creatinine Ratio 21.8 H (14-18) Glucose 126 H (70-99) mg/dL Calcium 9.3 (8.5-10.1) mg/dL Total Bilirubin 0.6 (0.2-1.0) mg/dL AST 26 (15-37) U/L ALT 40 (16-63) U/L Alkaline Phosphatase 77 (46-116) U/L Troponin I < 0.017 (0.00-0.056) ng/mL C-Reactive Protein 6.0 H* (<1.0) mg/dL NT-Pro-B Natriuret Pep (0-125) pg/mL Total Protein 8.0 (6.4-8.2) g/dl Albumin 3.4 (3.4-5.0) g/dl Globulin 4.6 gm/dL Albumin/Globulin Ratio 0.7 L (1-2) Blood Type Gel Antibody Screen 08/09/21 08/09/21 Range/Units 13:45 13:45 WBC (4.23-9.07) K/mm3 RBC (4.63-6.08) M/mm3 Hgb (13.7-17.5) gm/dl Hct (40.1-51.0) % MCV (79.0-92.2) fl MCH (25.7-32.2) pg MCHC (32.2-35.5) g/dl RDW Std Deviation (35.1-43.9) fL Plt Count (163-337) K/mm3 MPV (9.4-12.3) fl Neut % (Auto) (34.0-67.9) % Lymph % (Auto) (21.8-53.1) % [place] % (Auto) (5.3-12.2) % Eos % (Auto) (0.8-7.0) Baso % (Auto) (0.1-1.2) % Neut # (Auto) (1.78-5.38) K/mm3 Lymph # (Auto) (1.32-3.57) K/mm3 [place] # (Auto) (0.30-0.82) K/mm3 Eos # (Auto) (0.04-0.54) K/mm3 Baso # (Auto) (0.01-0.08) K/mm3 PT (9.7-12.0) SECONDS INR Sodium (136-145) mEq/L Potassium (3.5-5.1) mEq/L Chloride (98-107) mEq/L Carbon Dioxide (21-32) mEq/L Anion Gap (5-15) BUN (7-18) mg/dL Creatinine (0.7-1.3) mg/dL Est Cr Clr Drug Dosing Estimated GFR (MDRD) (>60) mL/min BUN/Creatinine Ratio (14-18) Glucose (70-99) mg/dL Calcium (8.5-10.1) mg/dL Total Bilirubin (0.2-1.0) mg/dL AST (15-37) U/L ALT (16-63) U/L Alkaline Phosphatase (46-116) U/L Troponin I (0.00-0.056) ng/mL C-Reactive Protein (<1.0) mg/dL NT-Pro-B Natriuret Pep 244 H (0-125) pg/mL Total Protein (6.4-8.2) g/dl Albumin (3.4-5.0) g/dl Globulin gm/dL Albumin/Globulin Ratio (1-2) Blood Type A POSITIVE Gel Antibody Screen Negative Dictation box Meds: Medications Generic Name Dose Route Start Last Admin Trade Name Freq PRN Reason Stop Dose Admin Sodium Chloride 10 ml 08/09/21 11:54 Sodium Chloride 0.9% 10 Ml Syringe FLUSH ASDIRECTED PRN Keep Vein Open Discontinued Medications Generic Name Dose Route Start Last Admin Trade Name Freq PRN Reason Stop Dose Admin Sodium Chloride 1,000 mls @ 999 mls/hr 08/09/21 11:56 Normal Saline IV 08/09/21 12:56 ONETIME ONE - Radiology Interpretation Free Text/Narrative:: CT the chest angiogram shows no PE does have a lot of changes there with some slightly prominent lymph nodes within the mediastinum which is a little change from before although he did have Covid. Consider repeat CT chest in 6 months otherwise no acute pulmonary embolism noted some pleural nodules noted in the chest and a mildly left hemidiaphragm and atelectasis his CT abdomen pelvis shows multiple chronic findings including atherosclerotic changes of the abdominal aorta, kidney cyst noted and adrenal nodule, disc base narrowing in the spine otherwise no acute intra-abdominal findings. Patient is doing better had a normal bowel with no blood. Suspect this may be rectal fissure in her internal hemorrhoids no acute blood loss or least of vital sign abnormalities or low blood count noted. Patient with his chronic lung disease and with the lymph nodes will recommend him follow-up with the pulmonology clinic and also recommend a cardiology follow-up as he is trying to see the orthopedist to get his left hip replaced along with having umbilical hernia repaired. Will otherwise given return precautions. - Re-Assessments/Exams Free Text/Narrative Re-Assessment/Exam: 08/09/21 16:13 White blood cell count 13,000 hemoglobin 12.7 hematocrit 42.6 platelet count is 196,000+85% neutrophils INR 2.32 sodium 137 potassium 4.2 chloride 95 CO2 is 40 BUN is 24 creatinine 1.1 GFR greater than 60 glucose is 126 troponin is negative LFTs are normal C-reactive protein is 6 BNP is 244. Departure - Departure Time of Disposition: 19:00 Disposition: DC/Tfer W/I Hosp To Swing 61 Condition: Fair Clinical Impression: Bright red rectal bleeding, Mediastinal lymphadenopathy - Discharge Information Prescriptions: Hydrocortisone Acetate [Anusol-Hc] 25 mg RC BID #14 supp.rect Instructions: Rectal Bleeding, Dous-ct-Tcbe Referrals: Alok Reaves MD [Primary Care Provider] - 2 Days ([facility] Address: [address] [place] [id number] [facility] ) Forms: ED Department Discharge Additional Instructions: Call on Wednesday to schedule an appointment with the pulmonology clinic at [facility] along with the cardiology appointment. Both of these are for evaluation of your cardiovascular function as you need to follow-up with your [facility] orthopedist for hip surgery and also one of the [facility] surgeons for umbilical hernia repair. You do need to have a repeat CT chest scan in 6 months to reevaluate your lymph nodes that are noted today. I suspect that they may be still related to the Covid infection although you do not show any signs of pneumonia today. Recommend Anusol suppositories twice a day however if he continued to have any bloody stools or any abdominal pain you need to get a recheck evaluation and consider repeat colonoscopy. Return to the emergency room with any increasing abdominal pain, increasing work of breathing, fevers, bloody stools lightheadedness weakness or fainting spells. Sepsis Event Note (ED) - Evaluation Sepsis Screening Result: No Definite Risk - Focused Exam Vital Signs: Vital Signs Temp Pulse Resp BP Pulse Ox 08/09/21 10:37 98.5 F 92 22 H 144/66 H 94 L - My Orders Last 24 Hours: My Active Orders 08/09/21 11:53 Peripheral IV Insertion Adult [OM.PC] Stat EKG 12 Lead [EK] Stat 08/09/21 11:54 Peripheral IV Care [RC] . DIRECTED Sodium Chloride 0.9% [Saline Flush] 10 ml FLUSH ASDIRECTED PRN 08/09/21 16:28 PATIENT RETYPE [BBK] Routine - Assessment/Plan Last 24 Hours: My Active Orders 08/09/21 11:53 Peripheral IV Insertion Adult [OM.PC] Stat EKG 12 Lead [EK] Stat 08/09/21 11:54 Peripheral IV Care [RC] . DIRECTED Sodium Chloride 0.9% [Saline Flush] 10 ml FLUSH ASDIRECTED PRN 08/09/21 16:28 PATIENT RETYPE [BBK] Routine
[2021-08-09] MEDS ORDERED: Sodium Chloride 0.9% 10 ML Syringe FLUSH PRN (11:54)
[2021-08-09] MEDS ORDERED: Sodium Chloride 0.9% 1,000 ML IV ONE (11:56)
--- NOTE | 2021-08-09 17:44 | CT ---
CT chest Technique: Multiple axial sections through the chest were obtained. Intravenous contrast was utilized. Study has been performed as a pulmonary angiogram protocol. Comparison: Prior chest CT study of 09/11/17. Findings: Pulmonary arteries are fairly well opacified. There are no filling defects being seen to indicate discrete pulmonary embolism. Thoracic aorta shows no aneurysm. Scattered slightly prominent lymph nodes are seen within the mediastinum which are an interval change from prior exam. Lymph nodes extend into both hilar regions. No pericardial thickening is seen. Heart size is within normal limits. Three small subpleural nodules are seen within the right upper lung and right middle lobe. These nodular densities are felt to be stable from prior chest CT study and therefore incidental. Slight atelectasis is caused by a mildly dilated left hemidiaphragm. Bone window settings were reviewed which show scattered disc space narrowing and diffuse endplate osteophytes throughout the thoracic spine. No acute osseous abnormality is appreciated. Impression: 1. Slightly prominent lymph nodes within the mediastinum. These are an interval change from prior exam. Uncertain if these are incidental and represent change from previous inflammatory disease or represent early lymphoproliferative disease. Please consider repeat chest CT study in 6 months to further evaluate. 2. No findings of pulmonary embolism are seen. 3. Three stable subpleural nodules within the chest as described above. 4. Mildly elevated left hemidiaphragm with adjacent left lower lobe atelectasis. 5. Other findings believed to be incidental as noted above. Diagnostic code #9
--- NOTE | 2021-08-09 17:47 | CT ---
CT abdomen and pelvis Technique: Multiple axial sections were obtained from above the dome of the diaphragm inferiorly through the pubic symphysis. Intravenous and oral contrast was given. Reconstructed coronal and sagittal images were obtained. Comparison: Prior CT abdomen and pelvis study of 09/11/17. Findings: Liver shows mild fatty infiltration. Spleen size is within normal limits. Small adrenal nodule is noted on the right side which is stable from prior study measuring 1.5 cm. Left adrenal gland is unremarkable. Pancreas shows no abnormality. Gallbladder contains no calcified gallstones. Kidneys show symmetric contrast enhancement with no hydronephrosis. Very small low-density lesion is noted within the upper left kidney most likely representing a small cyst measuring 6 mm. Abdominal aorta shows atherosclerotic calcification which continues into the iliac vessels. No aneurysm is seen. No retroperitoneal adenopathy or mesenteric abnormalities are seen. Appendix is seen which appears normal in size. No pelvic mass or adenopathy is seen. Fat-containing umbilical hernia is noted. No bowel dilatation is seen. Bone window settings were reviewed which show diffuse disc space narrowing throughout the visualized spine as well as diffuse endplate osteophytes and scattered areas of vacuum disc phenomena. Severe degenerative change is noted within the left hip. Fairly severe degenerative change is noted within the right hip. Degenerative change is seen within both sacroiliac joints. Impression: 1. Multiple chronic findings as described above. 2. Nothing acute is appreciated on CT study of the abdomen and pelvis. Diagnostic code #2
== END 2021-08-09 19:45 | disposition home or self-care (01) ==
LOC: JD.ED 09:49
DX: K62.5 Hemorrhage of anus and rectum (principal); R59.1 Generalized enlarged lymph nodes; E78.00 Pure hypercholesterolemia, unspecified; I10 Essential (primary) hypertension; K21.9 Gastro-esophageal reflux disease without esophagitis; E66.9 Obesity, unspecified; Z68.30 Body mass index [BMI] 30.0-30.9, adult; Z79.01 Long term (current) use of anticoagulants; Z86.718 Personal history of other venous thrombosis and embolism; Z88.0 Allergy status to penicillin; Z91.030 Bee allergy status
CPT/HCPCS: 36415; 71275; 71275-26; 74177; 74177-26; 80053; 83880; 84484; 85025; 85610; 86140; 86850; 86900; 86901; 99284-25